=== PATIENT | male | born 1930 | race Caucasian/White ===

== ENCOUNTER → 2017-02-27 | Outpatient (CLI) | payer OTHER ==
[~2017-02-27] MED LIST: ACET-24 PO; ASPI81TA28 PO; DONE1TAB26 PO; FURO-85 PO; LEVO100T7 PO; LPR25 PO; PANT40TA PO; POTA-74 PO; TRAM-453 PO; [UNRECOGNIZED DRUG - CODE] IV; [UNRECOGNIZED DRUG - CODE] IV
[2017-02-27 17:51] LABS: BASO % 0.3 %; BASO ABS # 0.02 K/uL (0-0.2); COMPLETE YES; EOS % 0.5 %; HEMATOCRIT 43.6 % (42-52); IG% 0.3 %; LYMPH % 7.6 %; MEAN CELL VOLUME 89.2 fL (80-100); MEAN CORPUSCULAR HEMOGLOBIN 29.2 pg (25-34); MEAN CORPUSCULAR HGB CONC 32.8 g/dl (32-36); MEAN PLATELET VOLUME 10.3 fL (7.4-10.4); MONO % 9.8 %; NEUT % 81.5 %; PLATELET COUNT 206 K/uL (130-400); RED BLOOD COUNT 4.89 M/uL (4.7-6.1); WHITE BLOOD COUNT 7.89 K/uL (4.8-10.8)
[2017-02-27 19:39] LABS: BLOOD UREA NITROGEN 19 mg/dl (7-18); BUN/CREATININE RATIO 15.8 (10-20); CALCIUM 8.8 mg/dl (8.5-10.1); CARBON DIOXIDE 22 mmol/L (21-32); CHLORIDE 106 mmol/L (98-107); GLUCOSE 120 mg/dl (70-99); POTASSIUM 4.4 mmol/L (3.5-5.1); SODIUM 138 mmol/L (136-145)
[2017-02-27 19:49] LABS: ALB/GLOB RATIO 0.8 (0.9-2); ALKALINE PHOSPHATASE 87 U/L (45-117); ALT/SGPT 23 U/L (12-78); AST/SGOT 15 U/L (15-37)
== END | disposition home or self-care (01) ==
LOC: C.LABSPEC 17:32
PROVIDERS: ATTEND Internal Medicine
DX: J20.9 Acute bronchitis, unspecified (principal); R53.83 Other fatigue

== ENCOUNTER → 2017-03-31 | Outpatient (CLI) | payer OTHER ==
--- NOTE | 2017-03-31 18:20 | DIAGNOSTIC IMAGING REPORT ---
RIGHT KNEE 1 OR 2 VIEWS ROUTINE CLINICAL HISTORY: RIGHT KNEE PAIN Right pain COMPARISON: None. DISCUSSION: Rather significant degenerative narrowing of all major joint compartments. Chondrocalcinosis. Medial lateral osteophytic change. Small joint effusion. Multiple small synovial calcifications. No evidence for fracture or dislocation. IMPRESSION: Significant degenerative change all major joint compartments. Chondrocalcinosis. Small joint effusion with multiple synovial calcifications The above report was generated using voice recognition software. It may contain grammatical, syntax or spelling errors. Electronically signed by: Demetrius Craft M.D. 03/31/2017 6:19 PM Dictated Date/Time: 03/31/2017 6:18 PM
== END | disposition home or self-care (01) ==
LOC: C.RAD 17:14
PROVIDERS: ATTEND Internal Medicine
DX: M25.561 Pain in right knee (principal); M11.261 Other chondrocalcinosis, right knee; M25.461 Effusion, right knee; M25.861 Other specified joint disorders, right knee

== ENCOUNTER 2017-04-06 12:54 | Emergency (ER) | payer OTHER ==
[~2017-04-06] VITALS: Ht 170.2 cm; Wt 77.0 kg
[~2017-04-06 12:54] MED LIST changes: -ACET-24 PO; -TRAM-453 PO; -[UNRECOGNIZED DRUG - CODE] IV; -[UNRECOGNIZED DRUG - CODE] IV
[2017-04-06 13:03] VITALS: TEMP 36.5; Ht 170.2 cm; Wt 77.0 kg
--- NOTE | 2017-04-06 14:01 | DIAGNOSTIC IMAGING REPORT ---
RIGHT KNEE 3 VIEWS CLINICAL HISTORY: Right knee pain COMPARISON: None. DISCUSSION: No acute fractures are visualized. There is chondrocalcinosis. There are degenerative changes with medial joint compartment narrowing. There is a suprapatellar joint effusion. There are calcifications projected over the joint fluid. There is a 15 mm 8 mm calcification projected over the lateral metadiaphyseal junction of the distal femur. Is unclear whether these calcifications are internal or extra-articular. IMPRESSION: 1. Chondrocalcinosis and degenerative change. No acute fractures. Joint effusion. Possible loose bodies. Electronically signed by: Igor Sharma M.D. 04/06/2017 2:00 PM Dictated Date/Time: 04/06/2017 1:58 PM
[2017-04-06] MEDS ORDERED: TRAMADOL HCL 50 MG TAB PO STA (15:22)
--- NOTE | 2017-04-06 16:34 | DIAGNOSTIC IMAGING REPORT ---
ULTRASOUND RIGHT VENOUS DOPP LOWER EXT UNILAT CLINICAL HISTORY: Right leg pain COMPARISON STUDY: No previous studies for comparison. FINDINGS: No thrombus is visualized in the common femoral, superficial femoral, or popliteal veins. One of the posterior tibial veins is thrombosed. There is normal color-flow within the anterior tibial and peroneal veins. IMPRESSION: 1. Calf DVT involving one of the posterior tibial veins 2. No evidence of [id number] thrombus Electronically signed by: Igor Sharma M.D. 04/06/2017 4:32 PM Dictated Date/Time: 04/06/2017 4:31 PM
--- NOTE | 2017-04-06 16:55 | EMERGENCY ROOM VISIT NOTE ---
ED Visit Note First contact with patient: 13:19 Staff note: I have reviewed the Patients chart and have discussed this case with my PA. I generally agree with the ED note and findings.
[2017-04-06] MEDS ORDERED: TRAM-453 PO (17:05)
--- NOTE | 2017-04-06 17:05 | EMERGENCY ROOM VISIT NOTE ---
History First contact with patient: 13:19 Chief Complaint: KNEEPAIN Stated Complaint: KNEE PAIN History of Present Illness The patient is a 87 year old male who presents to the Emergency Room with complaints of right knee pain which began last week. The patient states that he saw his primary care provider, Dr. Shay regarding the knee pain and was referred to orthopedics. He saw Dr. Lion, who injected the knee with a steroid 3 days ago with no relief. He denies any injury to the knee. He denies any history of knee problems. He rates the discomfort a 4/10 and states it is difficult to walk on the knee. The pain is concentrated on the inside of the knee. He has a history of blood clots in his legs and has an IVC filter. He did take one of his 's tramadol this morning which offered him some relief of the pain. He denies any redness, warmth or fevers. Denies chest pain or shortness of breath. Review of Systems A complete 10 point review of systems was reviewed with the patient with pertinent positives and negatives as per history of present illness. All else were negative. Past Medical/Surgical History Medical Problems: (1) Aortic Valve Disorder (2) Cellulitis Of Face (3) DVT (deep venous thrombosis) (4) Heart Valve Replac Nec (5) Hypertension Nos (6) Myalgia And Myositis Nos Social History Smoking Status: Never Smoker Marital Status: Housing Status: lives with family Occupation Status: retired Current/Historical Medications Scheduled Aspirin (Aspirin Ec), 81 MG PO DAILY Donepezil Hydrochloride (Donepezil Hcl), 10 MG PO QAM Furosemide (Lasix), 20 MG PO 3XWK Levothyroxine Sodium (Levothyroxine Sodium), 100 MCG PO QAM Metoprolol Tartrate (Lopressor), 12.5 MG PO BID Pantoprazole (Protonix), 40 MG PO QAM Potassium Chloride (Potassium Chloride Er), 10 MEQ PO 3XWK Tramadol Hcl (Ultram), 50-100 MG PO Q4H Physical Exam Vital Signs Date Time Temp Pulse Resp B/P (MAP) Pulse Ox O2 Delivery O2 Flow Rate FiO2 04/06/17 17:16 68 20 131/81 99 04/06/17 15:16 78 20 145/88 99 Room Air 04/06/17 13:03 36.5 90 20 145/82 94 Room Air Physical Exam VITALS: Vitals are noted on the nurse's note and reviewed by myself. Vital signs stable. GENERAL: This is an 87-year-old male, in no acute distress, nondiaphoretic, well -developed well-nourished. HEART: Regular rate and rhythm without murmurs gallops or rubs. LUNGS: Clear to auscultation bilaterally without wheezes, rales or rhonchi. MUSCULOSKELETAL: There is tenderness to palpation over the medial aspect of the right knee. There is no erythema or warmth of the knee. There is no ecchymosis. Full range of motion of the knee. NEURO: Patient was alert and oriented to person place and time. Normal sensation to light and sharp touch. Medical Decision & Procedures ER Provider Diagnostic Interpretation: RIGHT KNEE 3 VIEWS DISCUSSION: No acute fractures are visualized. There is chondrocalcinosis. There are degenerative changes with medial joint compartment narrowing. There is a suprapatellar joint effusion. There are calcifications projected over the joint fluid. There is a 15 mm 8 mm calcification projected over the lateral metadiaphyseal junction of the distal femur. Is unclear whether these calcifications are internal or extra-articular. IMPRESSION: 1. Chondrocalcinosis and degenerative change. No acute fractures. Joint effusion. Possible loose bodies. ULTRASOUND RIGHT VENOUS DOPP LOWER EXT UNILAT FINDINGS: No thrombus is visualized in the common femoral, superficial femoral, or popliteal veins. One of the posterior tibial veins is thrombosed. There is normal color-flow within the anterior tibial and peroneal veins. IMPRESSION: 1. Calf DVT involving one of the posterior tibial veins 2. No evidence of [id number] thrombus Medications Administered Medications (Trade) Dose Ordered Sig/Ani Route Start Time Stop Time Status Last Admin Dose Admin Tramadol HCl (Ultram Tab) 50 mg NOW STAT PO 04/06/17 15:22 04/06/17 15:23 DC 04/06/17 15:34 50 MG Tramadol HCl (Ultram Home Pack) 1 homepack UD ONCE PO 04/06/17 17:15 04/06/17 17:16 DC 04/06/17 17:16 1 HOMEPACK ED Course The patient was evaluated as above. X-ray of the right knee was obtained and read by radiology. Findings were discussed with the patient. He requested something for pain and was given 1 tablet tramadol. Ultrasound was performed and read by radiology and did show a right calf DVT. The case was discussed with Dr. Shay, the patient's primary care provider. He agrees that the patient does not require anticoagulation at this time. Findings were discussed with the patient. He will be discharged home. He was given a home pack of Tramadol. Discharge instructions were reviewed with the patient. The patient verbalized understanding of my assessment and treatment plan and was discharged home in good condition. Medical Decision Differential diagnosis includes septic joint, gout, arthritis, DVT, superficial thrombosis, among others. The patient is an 87-year-old male who presents today complaining of right knee pain. There is no evidence of a septic joint on exam. Knee x-ray was performed and did show evidence of arthritis and possible loose bodies. Ultrasound of the right leg was performed due to history of DVT. The patient does have a DVT in the posterior tibial vein. I am unsure if this is truly the cause of the patient's presenting complaint today. The patient has a history of significant upper GI bleed and I do not feel that anticoagulation will be indicated given the location of the patient's clot and the fact that he already has an IVC filter. The case was discussed with the patient's primary care provider who is in agreement with this. Patient was instructed to apply heat to the calf. He will follow-up with orthopedics and his primary care provider. He will return here as needed. He was given a home pack and prescription of tramadol for his pain. Based on the patient's presentation and work up, I feel the patient is stable for outpatient treatment. The patient was educated to return to the emergency department for any worsening of their current condition or new/concerning symptoms. He will follow up with his PCP and orthopedics. The patient was independently evaluated by Dr. Mondragon, ED attending physician, who agreed with my assessment and treatment plan. Medication Reconcilliation Current Medication List: was personally reviewed by me Blood Pressure Screening Patient's blood pressure: Elevated blood pressure Blood pressure disposition: Elevated BP felt to be situational Impression Primary Impression: Right knee pain Additional Impression: DVT (deep venous thrombosis) Departure Information Dispostion Home / Self-Care Condition GOOD Prescriptions Tramadol Hcl (ULTRAM) 50 Mg Tab 50-100 MG PO Q4H for Pain, #20 TAB For Initial Treatment Prov: Ellen Wilson PA-C 04/06/17 Referrals Goldy Vasquez M.D. (PCP) Patient Instructions My [facility] [employer] Additional Instructions Tramadol, one tablet every 4-6 hours as needed for pain. Follow-up with Dr. Lion regarding your knee pain. Follow-up with Dr. Watson Cooper this week in the office. Return here for any worsening or new/concerning symptoms. Problem Qualifiers Primary Impression: Right knee pain Chronicity: acute Qualified Codes: M25.561 - Pain in right knee Additional Impression: DVT (deep venous thrombosis) DVT location: lower extremity Affected thrombotic vein of extremity: tibial Chronicity: acute Laterality: right Qualified Codes: I82.441 - Acute embolism and thrombosis of right tibial vein
[2017-04-06] MEDS ORDERED: TRAMADOL HCL 50 MG HOME PACK ONE (17:06)
[2017-04-06] MEDS ORDERED: TRAMADOL HCL 50 MG HOME PACK PO ONE (17:15)
[2017-04-06 17:16] VITALS: BP 131/81; PULSE 68; O2SAT 99
[2017-04-17] MEDS ORDERED: DONE1TAB26 PO (07:38)
[2017-04-17] MEDS ORDERED: [UNRECOGNIZED DRUG - CODE] IV (07:38)
[2017-04-17] MEDS ORDERED: ACET-24 PO (07:38)
[2017-04-17] MEDS ORDERED: [UNRECOGNIZED DRUG - CODE] IV (07:38)
[2017-04-17] MEDS ORDERED: ASPI81TA28 PO (07:38)
[2017-04-17] MEDS ORDERED: LPR25 PO (07:38)
== END 2017-04-06 17:17 | disposition home or self-care (01) ==
LOC: C.EDB 12:55 → C.EDD 17:17
DX: M25.561 Pain in right knee (principal); I82.441 Acute embolism and thrombosis of right tibial vein; M11.261 Other chondrocalcinosis, right knee; M17.11 Unilateral primary osteoarthritis, right knee; Z86.718 Personal history of other venous thrombosis and embolism; Z95.828 Presence of other vascular implants and grafts; I35.8 Other nonrheumatic aortic valve disorders; I10 Essential (primary) hypertension; Z95.2 Presence of prosthetic heart valve; Z79.82 Long term (current) use of aspirin

== ENCOUNTER → 2017-04-07 | Outpatient (CLI) | payer OTHER ==
[~2017-04-07] MED LIST changes: +ACET-24 PO; +TRAM-453 PO; +[UNRECOGNIZED DRUG - CODE] IV; +[UNRECOGNIZED DRUG - CODE] IV
[2017-04-07 15:52] LABS: SYNOVIAL FLUID APPEARANCE TURBID; SYNOVIAL FLUID COLOR RED; SYNOVIAL FLUID MONONUC RELAT 18.4 %; SYNOVIAL FLUID POLYNUC RELAT 81.6 %
== END | disposition home or self-care (01) ==
LOC: C.LABSPEC 14:00
PROVIDERS: ATTEND Internal Medicine
DX: M25.561 Pain in right knee (principal); M19.90 Unspecified osteoarthritis, unspecified site

== ENCOUNTER 2017-04-09 11:43 | Inpatient (IN) | payer OTHER ==
[~2017-04-09] VITALS: Ht 167.6 cm; Wt 69.1 kg
[~2017-04-09 11:43] MED LIST changes: -ACET-24 PO; -[UNRECOGNIZED DRUG - CODE] IV; -[UNRECOGNIZED DRUG - CODE] IV
[2017-04-09] MEDS ORDERED: ACETAMINOPHEN 500 MG TAB PO PRN (12:00)
[2017-04-09 12:02] VITALS: BP 115/67; PULSE 75; TEMP 36.7; O2SAT 92; Ht 167.6 cm; Wt 69.1 kg
[2017-04-09] MEDS ORDERED: VANCOMYCIN CONSULT ACTIVE PRN (12:15)
[2017-04-09] MEDS ORDERED: PATIENT'S HEIGHT AND/OR WEIGHT NEEDED SCH (12:15)
[2017-04-09] MEDS ORDERED: VANCOMYCIN INJ 1,900 MG in SODIUM CHLORIDE 0.9% 500ML 500 ML IV ONE (12:30)
[2017-04-09 12:49] LABS: BASO % 0.1 %; BASO ABS # 0.01 K/uL (0-0.2); HEMATOCRIT 40.5 % (42-52); IG% 0.8 %; LYMPH % 14.1 %; LYMPH ABS # 1.29 K/uL (1.2-3.4); MEAN CELL VOLUME 88.6 fL (80-100); MEAN CORPUSCULAR HEMOGLOBIN 30.2 pg (25-34); MEAN PLATELET VOLUME 9.7 fL (7.4-10.4); MONO % 10.4 %; NEUT % 73.6 %; PLATELET COUNT 344 K/uL (130-400); RED BLOOD COUNT 4.57 M/uL (4.7-6.1); WHITE BLOOD COUNT 9.12 K/uL (4.8-10.8)
[2017-04-09 12:53] LABS: COMPLETE YES; MEAN CORPUSCULAR HGB CONC 34.1 g/dl (32-36)
[2017-04-09 13:03] LABS: INR 1.1 (0.9-1.1); PARTIAL THROMBOPLASTIN RATIO 1.3; PROTHROMBIN TIME (PATIENT) 11.5 SECONDS (9.0-12.0)
[2017-04-09 13:08] LABS: BUN/CREATININE RATIO 16.9 (10-20); C-REACTIVE PROTEIN 14.7 mg/dl (0-0.29); CALCIUM 9.7 mg/dl (8.5-10.1); CREATININE 0.95 mg/dl (0.60-1.40); POTASSIUM 3.9 mmol/L (3.5-5.1)
[2017-04-09 13:16] LABS: ALB/GLOB RATIO 0.6 (0.9-2)
[2017-04-09] MEDS: HEPARIN SOD 5000 UNIT/0.5 ML CARP SQ SCH ×2 (13:50→21:21)
--- NOTE | 2017-04-09 14:28 | Pharmacy Progress Note ---
Pharmacy Antibiotic Consult Date of Service: Apr 09, 2017. Pharmacy Dosing Scope Pharmacy is consulted to initiate vancomycin IV dosing therapy, order appropriate labs and adjust drug dose/frequency. Subjective The patient is a 87 year old male admitted on Apr 09, 2017 at 11:43. Objective Height (Feet): 5 Height (Inches): 6.00 Weight (Kilograms): 69.100 Lab Results (24hrs): Test 04/09/17 12:19 White Blood Count 9.12 K/uL (4.8-10.8) Red Blood Count 4.57 M/uL (4.7-6.1) Hemoglobin 13.8 g/dL (14.0-18.0) Hematocrit 40.5 % (42-52) Mean Corpuscular Volume 88.6 fL (80-100) Mean Corpuscular Hemoglobin 30.2 pg (25-34) Mean Corpuscular Hemoglobin Concent 34.1 g/dl (32-36) Platelet Count 344 K/uL (130-400) Mean Platelet Volume 9.7 fL (7.4-10.4) Neutrophils (%) (Auto) 73.6 % Lymphocytes (%) (Auto) 14.1 % Monocytes (%) (Auto) 10.4 % Eosinophils (%) (Auto) 1.0 % Basophils (%) (Auto) 0.1 % Neutrophils # (Auto) 6.71 K/uL (1.4-6.5) Lymphocytes # (Auto) 1.29 K/uL (1.2-3.4) Monocytes # (Auto) 0.95 K/uL (0.11-0.59) Eosinophils # (Auto) 0.09 K/uL (0-0.5) Basophils # (Auto) 0.01 K/uL (0-0.2) RDW Standard Deviation 44.3 fL (36.4-46.3) RDW Coefficient of Variation 13.6 % (11.5-14.5) Immature Granulocyte % (Auto) 0.8 % Immature Granulocyte # (Auto) 0.07 K/uL (0.00-0.02) Erythrocyte Sedimentation Rate 50 mm/hr (0-14) Prothrombin Time 11.5 SECONDS (9.0-12.0) Prothromb Time International Ratio 1.1 (0.9-1.1) Activated Partial Thromboplast Time 32.9 SECONDS (21.0-31.0) Partial Thromboplastin Ratio 1.3 Sodium Level 136 mmol/L (136-145) Potassium Level 3.9 mmol/L (3.5-5.1) Chloride Level 103 mmol/L (98-107) Carbon Dioxide Level 24 mmol/L (21-32) Anion Gap 9.0 mmol/L (3-11) Blood Urea Nitrogen 16 mg/dl (7-18) Creatinine 0.95 mg/dl (0.60-1.40) Est Creatinine Clear Calc Drug Dose 50.3 ml/min Estimated GFR () 83.7 Estimated GFR (Non- 72.2 BUN/Creatinine Ratio 16.9 (10-20) Random Glucose 103 mg/dl (70-99) Calcium Level 9.7 mg/dl (8.5-10.1) Total Bilirubin 0.9 mg/dl (0.2-1) Aspartate Amino Transf (AST/SGOT) 13 U/L (15-37) Alanine Aminotransferase (ALT/SGPT) 21 U/L (12-78) Alkaline Phosphatase 78 U/L (45-117) C-Reactive Protein 14.70 mg/dl (0-0.29) Total Protein 7.3 gm/dl (6.4-8.2) Albumin 2.8 gm/dl (3.4-5.0) Globulin 4.5 gm/dl (2.5-4.0) Albumin/Globulin Ratio 0.6 (0.9-2) Micro Results: Item Value Date Time Gram Stain - Final Resulted 04/07/17 1400 Joint Fluid/Space (Synovial) Knee Right Item Value Date Time Blood Culture Received 04/09/17 1230 Blood Pending Blood Culture Received 04/09/17 1219 Blood Pending Assessment & Plan Patient started on vancomycin due to positive joint/synovial fluid from 04/07 growing Gm+cocci. BC x 2 are pending. Vancomycin: * Pt received LD of vancomycin 1900 mg (~25 mg/kg) x 1 based upon wt from previous admission of 77 kg (pt reported) * Will start MD of vancomycin 1000 mg (~15 mg/kg) iv q 18 hrs to achieve an estimated trough 15-20 mcg/ml (goal for joint infection) * Estimated kinetics: t1/2~15 hrs, ke~0.04 hr-1, CrCl ~50ml/min * Will plan to obtain a trough prior to the 1400 dose on 04/12 to ensure therapeutic Pharmacy will continue to follow and will adjust dose/frequency as necessary. Thank you
[2017-04-09 15:25] VITALS: BP 125/66; PULSE 71; TEMP 37; O2SAT 93
--- NOTE | 2017-04-09 15:38 | History and Physical ---
History & Physical Date of Service Apr 09, 2017. History & Physical CHIEF COMPLAINT: 87-year-old male admitted with septic right knee. PRESENT ILLNESS: Patient with multiple medical problems including aortic valve replacement with a prosthetic valve because of critical aortic stenosis. He also has dementia. Treated for hypothyroidism. Has osteoarthritis. He has a history of gastrointestinal bleed in 2014. At that same time he presented with a pneumomediastinum and pneumoperitoneum. He also has evidence of deep vein thrombosis of his left leg. Because of the acute bleeding he was not anticoagulated. He had a Lani filter placed. Back in 2014 he presented with mental status changes and aphasiia and left-sided deficit. These findings were transient. On 03/31/2017 his called the office stating that 4 days prior to her phone call or patient was putting his shoes on and he twisted his right knee. It was painful. He had no swelling at that time. He did take Tylenol and. Apply diurese. We did send him for an x-ray of the right knee. There was evidence of significant osteoarthritic changes 04 major components. Chondrocalcinosis was also noted. There was a small joint effusion. Since then he continued to have severe pain in his right knee. I did see him in the office. He also was seen by Dr. Benedicto Lion last . He had a steroid injection in his knee. He continued to have severe pain. He was unable to ambulate. I saw him in the office on 04/07/2017. He had evidence of significant effusion of the right knee. An arthrocentesis was done. I drained 30 cc of fluid which was slightly bloody. The fluid was sent for multiple studies including cell count, culture, and crystal study. The WBC count isn't his synovial fluid was 21,111. There was evidence of crystals consistent with pseudogout. The culture was reported gram- positive cocci. I spoke with Dr. Lion today. I made arrangements for the patient to be admitted for further treatment. PAST MEDICAL HISTORY: * gastrointestinal bleed on 10/30/2014. The source of bleeding was never determined. At that time he presented with pneumomediastinum and pneumopericardium. Endoscopy was contraindication it. He was treated conservatively. 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 * Critical aortic stenosis requiring valve replacement. He had a bioprosthetic valve done at [facility] on 08/05/2011 * TURP in 1980 * Congenital absence of the left kidney discovered at that time he had his retrograde pyelogram in 1990 * History of urinary retention in 1992 * Known hiatal hernia and gastroesophageal reflux. * History of colonic polyps in 1992 * Left inguinal hernia repair in 1988 * Cholecystectomy in 1983 * Appendectomy and tonsillectomy in childhood * Arthroscopic surgery of the left knee for torn meniscus in 1996 * Meniscus tear of the right knee in 2004 required arthroscopic procedure * Rotator cuff dysfunction in 1992 * Bilateral inguinal hernia repair in 2003 * Memory deficit first diagnosed in 2005 * In 2006 he had a nonhealing lesion on the left side of face down. 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 He had a partial gross ectomy. This was done on 09/01/2007. He has no residual deficit. * Hypothyroidism. Treated since 2005. SOCIAL HISTORY: He is . This is his second marriage. He has 3 children from his first marriage. He stopped smoking in the . He smoked a pipe prior to that. Denied any alcohol. No excessive coffee tea or soft drinks. 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 FAMILY HISTORY: His family history is unknown. He is adopted. ALLERGIES: None CURRENT MEDICATIONS: * metoprolol tartrate 12.5 mg twice a day * Aricept 5 mg daily he has a 10 mg tablets that he breaks in half * Lasix 20 mg 3 times a week on Friday and Friday * Potassium chloride 10 mEq on Friday and Friday * Levothyroxine 100 mcg daily * Protonic 40 mg daily REVIEW OF SYSTEMS: He has been feeling weak and very tired. Having a lot of pain in his knee. He denied any headache or dizziness or lightheadedness. He does have problem with his balance and equilibrium. No chest pain no shortness of breath. No abdominal pain no nausea no vomiting. No problem with his bowel movements. No problem urinating. No pain in his back. He is having severe pain in his right knee. PHYSICAL EXAMINATION: General : Well developed. Well nourished. complaining of severe pain. Having a problem ambulating. His recorded weight is 69.1 kg. Height 167.6 cm. BMI 24.6. Vital Signs : Blood [id number], pulse 75, respiration 18, temperature 36.7, oxygen saturation 92% on room air. Skin : Warm and dry. No rash. HEENT :He was glasses. Has upper dentures. Has hearing aids. Neck : Supple. No adenopathy. No thyromegaly. No JVD. Normal carotid pulses. Bilateral carotid bruits. Chest : Normal.Scar from prior surgery Heart : Regular heart sounds. 2/6 systolic murmur. No rub or gallop. PMI is not displaced. Lungs : Clear. Normal breath sounds. Axilla : No adenopathy. Breasts : Normal. Abdomen : Soft nontender without any organomegaly or masses. Active bowel sounds. Back : No spinal or CVA tenderness. Extremities: He does have swelling in his right lower leg and ankle. No clubbing no cyanosis. Acute arthritis of the right knee. There is evidence of recurrent effusion. Good pulses. Neurological examination : he does have dementia mostly demonstrated by his memory deficit. No evidence of any lateralized deficit. ADMISSION LABORATORY TESTS: WBC count 9120, hemoglobin 13.8, hematocrit 40.5, platelet count 344,002. Sedimentation rate 58. C-reactive protein 14.7. Sodium 136, potassium 3.9, CO2 103, CO2 24, BUN 16, creatinine 0.95, glucose 103 , calcium 9.7, total bilirubin 0.9, AST 13, ALT 21, alkaline phosphatase 78, total protein 7.3, albumin 2.8. Prothrombin time 11.5, INR 1.1, PTT 32.9. The results of the arthrocentesis done on Friday04/07/2017 are as reported above. He does have evidence of septic joint. ASSESSMENT: * septic arthritis right knee * Severe osteoarthritis * Functional decline * Prosthetic aortic valve. He has a bioprosthesis * Hypothyroidism * Dementia * Solitary kidney. Congenital absence of the left kidney. * Gastroesophageal reflux * Bello's esophagus PLAN: Patient was admitted to medical surgical bed. Resuscitation level I. All his laboratory tests were ordered. Blood cultures were done. Will continue his oral medications. He was started on IV vancomycin. Pharmacy consultation to monitor the vancomycin dosage. As noted I spoke with Dr. Lion. Requested a consultation. He would see the patient. He will decide on the need for surgical intervention. We wait for the final culture results from his arthrocentesis which was done on 04/09/2017 and decide on the length of treatment and antibiotic that we need to continue. I spoke with his family about his condition and the need for admission and further treatment.
[2017-04-09] MEDS: HYDROCODONE/ACETAMOPHEN 5/325MG TAB PO PRN (17:21)
[2017-04-09] MEDS ORDERED: LIDOCAINE HCL 1% 20 ML VIAL ONE (17:32)
[2017-04-09 20:16] LABS: SYNOVIAL FLUID APPEARANCE BLOODY; SYNOVIAL FLUID COLOR RED; SYNOVIAL FLUID MONONUC RELAT 13.2 %; SYNOVIAL FLUID POLYNUC RELAT 86.8 %
[2017-04-09] MEDS: METOPROLOL TARTRATE 25 MG TAB PO SCH (21:25)
--- NOTE | 2017-04-09 21:47 | ORTHOPEDIC CONSULTATION ---
DATE OF CONSULTATION: 04/09/2017 CHIEF COMPLAINT: Right knee pain and effusion. HISTORY OF PRESENT ILLNESS: Albin is an 87-year-old male who began having right knee pain when he twisted his knee while putting on a boot on 03/27/2017. Four days later he called the office of Dr. Shay and had x-rays done of his knee. The x-ray showed chondrocalcinosis and osteoarthritis of the knee. His pain continued and he presented to my office a week ago and I gave him an intraarticular injection in his knee. Unfortunately, that did not help much with his knee pain. He continued to have severe pain in his knee and went to Dr. Shay's office 2 days ago. He had an arthrocentesis, which appeared to be a pseudogout; however a Gram-positive cocci grew. There was concerns with possible septic arthritis, so he was a direct admit over to the hospital. Orthopedics was consulted to evaluate and treat. PAST MEDICAL HISTORY: Significant for GI bleed, chronic aortic stenosis, congenital absence of the left kidney, history of colon polyps, inguinal hernia repair, cholecystectomy, appendectomy, left knee arthroscopy in 1996, right knee arthroscopy in 2004, rotator cuff dysfunction 1992, bilateral inguinal hernia repair in 2003, squamous cell carcinoma, hypothyroidism. ALLERGIES: None. MEDICATIONS: Include metoprolol, Aricept, Lasix, potassium, Synthroid and Protonix. FAMILY HISTORY: Noncontributory. SOCIAL HISTORY: He has 3 children from his first marriage. 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 REVIEW OF SYSTEMS: He complains of right knee pain. All other pertinent review of systems is negative. ALLERGIES: None. PHYSICAL EXAMINATION: RIGHT KNEE: He is lying in bed with his knee flexed at 15 degrees. He has a lot of pain trying to straighten the knee. Most of his pain is really located all along the medial joint line and over the distal medial femoral condyle. There is a 2+ effusion on exam today. There was no redness or increased warmth. He does not have much pain laterally on the knee. IMAGING DATA: X-rays of the knee from previous visit do show advanced grade 4 osteoarthritis with significant chondrocalcinosis of the meniscus. Lab values from the arthrocentesis show a white count of 21,000 and evidence of crystals consistent with pseudogout. There is also a Gram-positives cocci, likely strep that has grown. IMPRESSION: 1. Right knee pain and effusion, probable pseudogout. 2. Continue to rule out possible septic arthritis. PLAN: Given his history, his x-rays and the white count of 21,000 as well as the crystals growing out a pseudogout, everything about this appears to be a pseudogout of the knee. However, the cultures did grow out a strep bacteria, which is not common for contaminant. He was started on vancomycin. I did a repeat arthrocentesis of his right knee to see if there will be any increase in the white count that could persuade me to do an arthroscopic I&D of the knee. At this time, I am hesitant to take him to surgery. We will see what the repeat synovial aspirate grows and will keep him on the vancomycin for now. We are also awaiting blood cultures. He is on hydrocodone for pain and will continue to follow him closely.
[2017-04-09 22:56] VITALS: BP 148/70; PULSE 75; TEMP 36.8; O2SAT 91
[2017-04-10] MEDS: HYDROCODONE/ACETAMOPHEN 5/325MG TAB PO PRN ×3 (03:56→16:24)
[2017-04-10] MEDS: LEVOTHYROXINE 100 MCG TAB PO SCH (05:39)
[2017-04-10 07:06] LABS: BASO % 0.3 %; BASO ABS # 0.02 K/uL (0-0.2); COMPLETE YES; EOS % 0.8 %; HEMATOCRIT 38.2 % (42-52); IG% 0.5 %; LYMPH % 17.1 %; LYMPH ABS # 1.27 K/uL (1.2-3.4); MEAN CELL VOLUME 88.4 fL (80-100); MEAN CORPUSCULAR HEMOGLOBIN 29.6 pg (25-34); MEAN CORPUSCULAR HGB CONC 33.5 g/dl (32-36); MONO % 11.3 %; PLATELET COUNT 344 K/uL (130-400); RED BLOOD COUNT 4.32 M/uL (4.7-6.1); WHITE BLOOD COUNT 7.43 K/uL (4.8-10.8)
[2017-04-10 07:08] LABS: CREATININE 0.87 mg/dl (0.60-1.40)
[2017-04-10 07:24] LABS: BUN/CREATININE RATIO 13.4 (10-20); CALCIUM 9.3 mg/dl (8.5-10.1); CREATININE 0.86 mg/dl (0.60-1.40); POTASSIUM 3.9 mmol/L (3.5-5.1)
[2017-04-10 07:51] VITALS: BP 134/77; PULSE 71; TEMP 36.7; O2SAT 93
--- NOTE | 2017-04-10 07:58 | DIAGNOSTIC IMAGING REPORT ---
CHEST 2 VIEWS ROUTINE CLINICAL HISTORY: 87 years-old Male presenting with valvular heart disease. bacteremia. Pre-op. TECHNIQUE: PA and lateral views of the chest were obtained. COMPARISON: 07/21/2016. FINDINGS: Median sternotomy wires, prosthetic aortic valve and epicardial pacing wires noted. Cardiomediastinal silhouette normal. Persistent elevation of the left hemidiaphragm. Lungs and pleural spaces clear. Osseous structures normal. Cholecystectomy clips and IVC filter noted. Mild gaseous distention of colon. IMPRESSION: 1. No acute cardiopulmonary disease. Electronically signed by: Osiel Cuello M.D. 04/10/2017 7:56 AM Dictated Date/Time: 04/10/2017 7:54 AM
[2017-04-10 08:28] VITALS: O2SAT 93
[2017-04-10] MEDS: PANTOprazole SOD 40 MG TAB PO SCH (09:01)
[2017-04-10] MEDS: DONEPEZIL HCL 5 MG TAB PO SCH (09:01)
[2017-04-10] MEDS: ASPIRIN 81 MG ECTAB PO SCH (09:01)
[2017-04-10] MEDS: VANCOMYCIN INJ 1,000 MG in SODIUM CHLORIDE 0.9% 250ML 250 ML IV SCH (09:01)
[2017-04-10] MEDS: METOPROLOL TARTRATE 25 MG TAB PO SCH ×2 (09:02→20:53)
[2017-04-10] MEDS: HEPARIN SOD 5000 UNIT/0.5 ML CARP SQ SCH ×2 (09:03→20:50)
[2017-04-10 11:44] VITALS: BP 120/68; PULSE 60; TEMP 36.7; O2SAT 91
--- NOTE | 2017-04-10 11:52 | Progress Note ---
Progress Note Date of Service Apr 10, 2017. Progress Note 87-year-old male admitted with the following problems: * septic right knee. Culture which was done on 04/07/2017 is growing gram- positive cocci. The final identification is pending * Severe osteoarthritis of the right knee * Chondrocalcinosis * Prosthetic aortic valve with bioprosthesis * Dementia with memory deficit * Generalized weakness * Congenital absence of the left kidney * Gastroesophageal reflux * Bello's esophagus * History of squamous cell carcinoma of the tongue. Status post partial glossectomy * history of DVT in 2014. He had a [place] filter placed. Anticoagulation was contraindicated at that time patient was admitted. Cultures were done. He was started on IV vancomycin pending the final identification of the bacteria. He remains afebrile. Early this morning the two cultures drawn on admission are reported to be growing gram -positive cocci. Patient was seen in orthopedic surgery consultation by Dr. Benedicto Lion. Repeat arthrocentesis was done last night. White cell count was 17,574, RBCs 35, 000. On the Gram stain multiple WBCs were seen but no organisms. Culture is pending. Overall he seems to be doing well. He still experiences pain in his right knee. He does have swelling in the right knee and right lower leg. He has been without any fever or any chills. No headache. No chest pain no shortness of breath. No abdominal pain. No nausea or vomiting. EXAMINATION: General : Well developed. Well nourished. No distress. Vital Signs : Blood [id number], pulse 71, respiration 22, temperature 36.7, oxygen saturation 93% on room air. Skin : Warm and dry. No rash. HEENT :No mucosal abnormalities. Neck : Supple. No adenopathy. No thyromegaly. No JVD. Normal carotid pulses. Bilateral carotid bruits. Heart : Regular heart sounds. 2/6 systolic murmur. No rub or gallop. PMI is not displaced. Lungs : Clear. Normal breath sounds. Abdomen : Soft nontender without any organomegaly or masses. Back : No spinal or CVA tenderness. Extremities: He does have swelling of the right leg. No clubbing no cyanosis. Acute arthritis of the right knee. Seems to be less inflamed. LABORATORY TESTS: WBC count 7430, hemoglobin 12.8, hematocrit 38.2, platelet count 344,000. Sodium 138, potassium 3.9, chloride 108, CO2 24, BUN 12, creatinine 0.86, glucose 106, calcium 9.3. 2 blood cultures are positive for gram-positive cocci. Final report is pending. The culture of the synovial fluid collected on 04/07/2017 is growing gram- positive cocci but the final report is still pending Electrocardiogram showed no new changes. No acute changes. Chest x-ray showed no evidence of any disease. ASSESSMENT: * septic right knee * Chondrocalcinosis * Gram-positive bacteremia * Prosthetic aortic valve with bioprosthesis * Osteoarthritis * Dementia PLAN: * continue IV vancomycin. The dose is being adjusted by pharmacy. * Continue his other medications * Echocardiogram was ordered * Cardiology consultation was requested. I spoke with Dr. Parmjit Harkins this morning. Need to decide if the patient will need a TRINI * Dr. Lion will decide on the need for surgical intervention on his right knee.
--- NOTE | 2017-04-10 15:07 | PROGRESS NOTE ---
DATE: 04/10/2017 DATE: 04/10/2017. CHIEF COMPLAINT: Right knee pain and effusion. PROGRESS: Albin was seen and examined at bedside today. Overall, he says his knee feels about the same. He has not been up and ambulating. Most of his pain is located on the medial aspect of the knee. The blood cultures did grow back a gram positive cocci and he was seen by the internet developer for his mitral valve replacement. PHYSICAL EXAMINATION: RIGHT KNEE: He does have a 2+ effusion. He has his knee flexed at 15 degrees. He does have pain with range of motion of the knee. Almost all of his pain is located over the distal medial femoral condyle and over the medial joint line. He has little to no pain laterally. There is no erythema or redness of the joint. Aspiration of the knee done yesterday does show synovial white count of 17,000 with PMN of 86%. It also showed calcium pyrophosphate crystals diagnostic of pseudogout. Blood cultures preliminary results have grown a gram positive cocci. Both cultures have come back the same. IMPRESSION: 1. Right knee pain and effusion, possible pseudogout versus septic joint. 2. Bacteremia. PLAN: With a synovial white count of 17,000, chondrocalcinosis on the x-rays, and the pseudogout crystals found within the joint, I still feel that his knee pain and effusion may be caused from his pseudogout. However, he did grow out an enterococcus from the initial aspiration done by Dr. Shay which was done under very sterile technique. I am still leaning towards pseudogout as cause of his knee pain but I have not completely ruled out a septic joint. I did start him on Toradol 15 mg every 6 hours to see if that helps alleviate some of his knee pain. I have also been in contact with Dr. Shay personally. The cardiology consult has been done because of the bacteremia and his mitral valve. I want to see how the Toradol helps and I want to see if the repeat knee aspirate grows any organisms. We will continue to follow the blood cultures as well. I will continue to follow him closely and if I start to lean more towards a septic joint I will have a quick trigger to do an arthroscopic I&D of the knee.
[2017-04-10 15:32] VITALS: BP 116/71; PULSE 64; TEMP 36.9; O2SAT 94
[2017-04-10] MEDS: KETOROLAC TROMETHAMINE 15 MG/ML VIAL IV. SCH ×2 (16:06→21:50)
--- NOTE | 2017-04-10 17:11 | ECHOCARDIOGRAM REPORT ---
*NOTICE TO RECEIVING [employer] This information is strictly Confidential and protected under [place] law. [place] law prohibits you from making any further disclosure of this information unless further disclosure is expressly permitted by the written consent of the person to whom it pertains or is authorized by law. A general authorization for the release of medical or other information is not sufficient for this purpose. Hospital accepts no responsibility if the information is made available to any other person, INCLUDING THE PATIENT. Interpretation Summary * Name: Say NAYAK Study Date: 04/10/2017 01:35 PM BP: 134/77 mmHg * Patient Location: .[facility] MAN\[id number]\[id number]\2 HR: 69 * : 1930 (M/d/yyy) Gender: Male Height: 66 in * Age: 87 yrs Ethnicity: CA Weight: 152 lb * Ordering Physician: Goldy Vasquez * Referring Physician: Goldy Vasquez * Performed By: Kristian Magana RCS * * Reason For Study: Valvular Heart Disease * BSA: 1.8 m2 * -- Conclusions -- * The left ventricular cavity is small. * There is moderate concentric left ventricular hypertrophy. * The left ventricular wall motion is normal. * Left ventricular systolic function is normal. * Ejection Fraction = 65-70%. * There is a bioprosthetic aortic valve. * The gradient is normal for this prosthetic aortic valve. * There is moderate mitral annular calcification. * The mitral valve leaflets appear thickened, but open well. * There is trace mitral regurgitation. * There is trace tricuspid regurgitation. * A sub valvular density is present below the oartic prosthesis but not well appraised on current study. Vegetation not excluded. Procedure Details * A complete two-dimensional transthoracic echocardiogram was performed (2D, M-mode, Doppler and color flow Doppler). Left Ventricle * The left ventricular cavity is small. * There is moderate concentric left ventricular hypertrophy. * Ejection Fraction = 65-70%. * Left ventricular systolic function is normal. * The left ventricular wall motion is normal. Right Ventricle * The right ventricle is normal in size and function. Atria * The left atrial size is normal. * Right atrial size is normal. * No ASD detected; PFO is not assessed. Mitral Valve * There is moderate mitral annular calcification. * The mitral valve leaflets appear thickened, but open well. * There is no mitral valve stenosis. * There is trace mitral regurgitation. Tricuspid Valve * The tricuspid valve anatomy is normal. * There is no tricuspid stenosis. * There is trace tricuspid regurgitation. Aortic Valve * No aortic regurgitation is present. * There is a bioprosthetic aortic valve. * The gradient is normal for this prosthetic aortic valve. * A sub valvular density is present below the oartic prosthesis but not well appraised on current study. Vegetation not excluded. Pulmonic Valve * The pulmonic valve is not well visualized. Great Vessels * The aortic root is normal size. Pericardium/Pleural * There is no pericardial effusion. Great Vessels * Normal inferior vena cava diameter and respiratory variation suggests normal central venous pressure. Left Ventricular Diastolic Function * Grade I diastolic dysfunction, (abnormal relaxation pattern). MMode 2D Measurements and Calculations IVSd 1.3 cm LVIDd 4.0 cm LVIDs 2.0 cm LVPWd 1.3 cm IVS/LVPW 0.94 FS 49.2 % EDV(Teich) 69.1 ml ESV(Teich) 13.1 ml EF(Teich) 81.1 % EDV(cubed) 63.0 ml ESV(cubed) 8.2 ml EF(cubed) 86.9 % LV mass(C)d 183.1 grams LV mass(C)dI 102.9 grams/m\S\2 SV(Teich) 56.1 ml SI(Teich) 31.5 ml/m\S\2 SV(cubed) 54.7 ml SI(cubed) 30.8 ml/m\S\2 Ao root diam 3.5 cm Ao root area 9.4 cm\S\2 LVOT diam 2.0 cm LVOT area 3.0 cm\S\2 EDV(MOD-sp4) 112.3 ml ESV(MOD-sp4) 33.8 ml EF(MOD-sp4) 69.9 % EDV(MOD-sp2) 71.9 ml ESV(MOD-sp2) 27.4 ml EF(MOD-sp2) 61.8 % SV(MOD-sp4) 78.5 ml SI(MOD-sp4) 44.1 ml/m\S\2 SV(MOD-sp2) 44.5 ml SI(MOD-sp2) 25.0 ml/m\S\2 Doppler Measurements and Calculations MV E max janay 120.8 cm/sec MV A max janay 152.6 cm/sec MV E/A 0.79 MV V2 max 151.7 cm/sec MV max PG 9.2 mmHg MV V2 mean 90.1 cm/sec MV mean PG 3.8 mmHg MV V2 VTI 54.3 cm MVA(VTI) 1.5 cm\S\2 MV P1/2t max janay 142.4 cm/sec MV dec time 0.30 sec Ao V2 max 251.7 cm/sec Ao max PG 25.3 mmHg Ao max PG (full) 19.4 mmHg Ao V2 mean 175.5 cm/sec Ao mean PG 14.1 mmHg Ao mean PG (full) 10.9 mmHg Ao V2 VTI 53.0 cm ELIJAH(I,A) 1.5 cm\S\2 ELIJAH(I,D) 1.5 cm\S\2 ELIJAH(V,A) 1.5 cm\S\2 ELIJAH(V,D) 1.5 cm\S\2 LV V1 max PG 5.9 mmHg LV V1 mean PG 3.2 mmHg LV V1 max 121.9 cm/sec LV V1 mean 79.4 cm/sec LV V1 VTI 26.5 cm SV(Ao) 497.8 ml SI(Ao) 279.7 ml/m\S\2 SV(LVOT) 80.3 ml SI(LVOT) 45.1 ml/m\S\2
[2017-04-10 23:08] VITALS: BP 135/77; PULSE 71; TEMP 36.7; O2SAT 93
[2017-04-11] MEDS: VANCOMYCIN INJ 1,000 MG in SODIUM CHLORIDE 0.9% 250ML 250 ML IV SCH (02:03)
[2017-04-11] MEDS: KETOROLAC TROMETHAMINE 15 MG/ML VIAL IV. SCH ×4 (03:38→22:19)
[2017-04-11] MEDS: HYDROCODONE/ACETAMOPHEN 5/325MG TAB PO PRN (05:24)
[2017-04-11] MEDS: LEVOTHYROXINE 100 MCG TAB PO SCH (05:24)
--- NOTE | 2017-04-11 07:09 | CARDIOLOGY CONSULTATION ---
DATE OF CONSULTATION: 04/10/2017 REFERRING PHYSICIAN: Dr. Shay. INDICATIONS: Bacteremia, history of aortic valve replacement. HISTORY OF PRESENT ILLNESS: The patient is an 87-year-old male, whose past history is notable for prior aortic valve replacement in July 2011 for severe calcified aortic stenosis, receiving a 21 mm Mike-Sepulveda pericardial Magna valve. There is a history of preserved LV systolic function, mildly dilated aortic root, underlying medical issues of moderate carotid atherosclerosis, congenital solitary kidney, history of Bello's esophagus with past history of gastrointestinal bleeding in October 2014. Course is notable for presentation with pneumomediastinum and pneumoperitoneum. He had a [place] filter in place due to DVT during that admission. The patient presents now, noting generalized malaise and weakness for several weeks with recent difficulties with pain in his right knee. He notes a chronic history of arthritic complaints in the knees and back, which are limiting his activity, has noted some moderate exertional dyspnea, has felt chilled at times over the past several weeks, but notes no overt fevers or rigors. Notes no acute neurologic complaints. Notes no chest pains. Notes not tachypalpitations. Appetite has been fair. Weight has been generally stable. Notes no skin lacerations or rash. Notes no recent dental procedures or invasive procedures. He has been taking medications as prescribed. ALLERGIES: None. MEDICATIONS: Prior to hospitalization were aspirin 81 mg per day, donepezil 10 mg q.a.m., Lasix 20 mg 3 days per week, levothyroxine 100 mcg q.a.m., metoprolol 12.5 mg b.i.d., Protonix 40 mg p.o. daily, potassium chloride 10 mg 3 days per week and Ultram p.r.n. PAST SURGICAL HISTORY: Includes a history of aortic valve replacement, as described, in July 2011. Cardiac catheterization preoperatively in May 2011 demonstrated only mild coronary atherosclerosis, at worst. He carries a history of past inguinal herniorrhaphy, appendectomy, cholecystectomy, tonsillectomy and as described, an IVC filter implantation in 2014. FAMILY HISTORY: Not known. SOCIAL HISTORY: The patient is a nonsmoker, nondrinker. 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 PHYSICAL EXAMINATION: GENERAL: The patient is an age-appropriate male, currently denying any acute distress. VITAL SIGNS: Reveal a heart rate of 60, blood pressure 120/68. HEENT: Normocephalic and atraumatic. Nares without discharge. Throat was clear. NECK: Supple without thyromegaly or lymphadenopathy. There are no carotid bruits. LUNGS: Clear. CARDIOVASCULAR: Regular with a grade 1/6 systolic murmur. There is no diastolic murmur. PMI is nondisplaced. A chronic cervical chest incision is well healed. ABDOMEN: Soft, nontender. EXTREMITIES: Without cyanosis or clubbing. There is tenderness overlying the right knee as well as in the ankle. There is no skin breakdown or lesion. There are no conjunctival hemorrhages. NEUROLOGIC: The patient has mild memory deficits, but is able to answer questions. He is hard of hearing, but question and answers have been aided by family members. He moves all extremities with strength. DATA: EKG on presentation reveals no acute changes with sinus rhythm with atrial ectopy, borderline criteria for left atrial enlargement. LABORATORY STUDIES: Sodium is 138, potassium is 3.9, chloride is 108, bicarbonate is 24, BUN is 12, creatinine is 0.86, glucose is 106, albumin level is 2.8, hemoglobin is 12.8. Initial white cell count was 9.1. Cultures of the joint effusions, so far to date, are negative, although a significant white cell count is present consistent with purulent effusion. Blood cultures drawn since admission are growing gram-positive cocci in two separate cultures. Echocardiogram is pending. IMPRESSION: An 87-year-old male with prior history of aortic valve replacement for severe aortic stenosis, receiving a bioprosthesis in the aortic valve position, presents now with main complaint as being right knee pain and generalized malaise and chills. Blood cultures are growing gram-positive cocci on two sources with a knee effusion drained demonstrating purulent findings. PLAN: We will follow patient in the hospital, we will review echocardiogram as noted. If concerns are raised regarding valve deterioration or insufficiency or perivalvular abscess, we would consider proceeding with a transesophageal echocardiogram, though at increased risk, given history of past Bello's esophagus and pneumomediastinum in 2015. Ultimate, he will require long-term antibiotic therapy, given presence of a prosthetic aortic valve and bacteremia, possible knee source. We will review the echocardiogram for possible seeding source, intracardiac. No other signs of sequelae of the endocarditis are present currently. MICHEL
[2017-04-11 07:49] VITALS: BP 112/70; PULSE 62; TEMP 36.7; O2SAT 92
[2017-04-11 08:28] VITALS: O2SAT 92
[2017-04-11] MEDS: PANTOprazole SOD 40 MG TAB PO SCH (09:17)
[2017-04-11] MEDS: METOPROLOL TARTRATE 25 MG TAB PO SCH ×2 (09:18→21:07)
[2017-04-11] MEDS: ASPIRIN 81 MG ECTAB PO SCH (09:20)
[2017-04-11] MEDS: DONEPEZIL HCL 5 MG TAB PO SCH (09:20)
[2017-04-11] MEDS: HEPARIN SOD 5000 UNIT/0.5 ML CARP SQ SCH ×2 (09:29→21:04)
--- NOTE | 2017-04-11 11:55 | Medical Consult ---
Consultation Date of Consultation: Apr 11, 2017. Attending Physician: Goldy Vasquez M.D. Reason for Consultation: septic R knee, AVR, bacteremia History of Present Illness Patient is an 87-year-old male who presented to the hospital for admission regarding probable right septic arthritis of the knee. The patient has a complicated medical history including aortic valve replacement with prosthetic valve due to severe aortic stenosis and congenital absence of the left kidney. The patient states that he began to have knee pain approximately 2 weeks ago. The he was noted to have a swelling, mild warmth, and pain but no erythema of the area. He did have an aspiration completed of his right knee which showed probable pseudogout, 21,000 white blood cells, and gram-positive cocci on Gram stain. Final culture is growing pansensitive enterococcus faecalis. The patient was admitted to the hospital for further treatment. Since admission, the patient did have a chest x-ray which showed no acute cardiopulmonary disease. Blood cultures are growing enterococcus species. Repeat aspirate of the knee is growing gram-positive coxae. White blood cell count on admission was 9.12. ESR was 50. C reactive protein was 14.70. The patient did also have an echocardiogram completed which showed thickening of the mitral leaflets , and a subvalvular density below the aortic prosthetic valve. The patient has been afebrile since admission. He was placed IV vancomycin. I did discuss this patient with pharmacy, Dr. Donald, and Dr. Shay. Past Medical/Surgical History Medical Problems: (1) Facial laceration Status: Acute Medical Problems: (1) Aortic Valve Disorder (2) Cellulitis Of Face (3) DVT (deep venous thrombosis) (4) Heart Valve Replac Nec (5) Hypertension Nos (6) Myalgia And Myositis Nos (7) SEPTIC ARTHRITIS R KNEE Family History Noncontributory Social History Smoking Status: Former Smoker Marital Status: Housing Status: lives with family Occupation Status: retired Allergies Coded Allergies: No Known Allergies (Verified , 04/06/17) Home Medications Reported Home Medications Medications Dose Route/Sig Max Daily Dose Days Date Category Dose Instructions Ultram (Tramadol Hcl) 50 Mg Tab 50-100 Mg PO Q4H 04/06/17 Rx For Initial Treatment Aspirin Ec (Aspirin) 81 Mg Tab 81 Mg PO DAILY 07/21/16 Reported Potassium Chloride Er (Potassium Chloride) 10 Meq Tab 10 Meq PO 3XWK 07/21/16 Reported TAKE THIS MEDICATION EVERY CAMILO Donepezil Hcl (Donepezil Hydrochloride) 10 Mg Tab 10 Mg PO QAM 07/21/16 Reported Lasix (Furosemide) 20 Mg Tab 20 Mg PO 3XWK 01/17/16 Reported TAKE THIS MEDICATION EVERY CAMILO Protonix (Pantoprazole Sodium) 40 Mg Tab 40 Mg PO QAM 02/07/15 Reported Lopressor (Metoprolol Tartrate) 25 Mg Tab 12.5 Mg PO BID 10/16/14 Reported Levothyroxine Sodium 100 Mcg Tab 100 Mcg PO QAM 10/16/14 Reported Current Inpatient Medications Current Inpatient Medications Medications (Trade) Dose Ordered Sig/Ani Route Start Time Stop Time Status Last Admin Dose Admin Heparin Sodium (Porcine) (Heparin Sq 5000 Unit/0.5ml) 5,000 unit Q12 SQ 04/09/17 13:16 05/09/17 13:15 04/11/17 09:29 5,000 UNIT Acetaminophen (Tylenol Tab) 500 mg Q4H PRN PO 04/09/17 12:00 05/09/17 11:59 Acetaminophen/ Hydrocodone Bitart ([place] 5/325 Tab) 1 tab Q4H PRN PO 04/09/17 12:00 04/23/17 11:59 04/11/17 05:24 1 TAB Vancomycin HCl (Consult) 1 ea UD PRN N/A 04/09/17 12:15 05/09/17 12:14 Vancomycin HCl 1000 mg/Sodium Chloride 270 ml @ 125 mls/hr Q18H IV 04/10/17 08:00 04/20/17 07:59 04/11/17 02:03 125 MLS/HR Aspirin (Ecotrin Tab) 81 mg DAILY PO 04/10/17 09:00 05/10/17 08:59 04/11/17 09:20 81 MG Levothyroxine Sodium (Synthroid Tab) 100 mcg DAILYBB PO 04/10/17 06:00 05/10/17 05:59 04/11/17 05:24 100 MCG Metoprolol Tartrate (Lopressor Tab) 12.5 mg BID PO 04/09/17 21:00 05/09/17 20:59 04/11/17 09:18 12.5 MG Pantoprazole Sodium (Protonix Tab) 40 mg QAM PO 04/10/17 09:00 05/10/17 08:59 04/11/17 09:17 40 MG Donepezil HCl (Aricept Tab) 5 mg QAM PO 04/10/17 09:00 05/10/17 08:59 04/11/17 09:20 5 MG Ketorolac Tromethamine (Toradol Inj) 15 mg Q6H IV. 04/10/17 16:00 04/15/17 15:59 04/11/17 09:21 15 MG Review of Systems Constitutional: + fever, + sweats, + fatigue Eyes: No worsening of vision ENT: No hearing loss Respiratory: No cough, No shortness of breath Cardiovascular: No chest pain Abdomen: No pain, No nausea, No vomiting, No diarrhea Musculoskeletal: + joint pain (right knee x 2 weeks), + swelling (right knee) Genitourinary - Male: No hematuria, No dysuria Integumentary: No rash, No itch, No color change Physical Exam Date Time Temp Pulse Resp B/P (MAP) Pulse Ox O2 Delivery O2 Flow Rate FiO2 04/11/17 08:28 92 Room Air 04/11/17 07:49 36.7 62 16 112/70 (84) 92 Room Air 04/11/17 00:15 Room Air 04/10/17 23:08 36.7 71 18 135/77 (96) 93 Room Air 04/10/17 15:35 Room Air 04/10/17 15:32 36.9 64 18 116/71 (86) 94 Room Air 04/10/17 11:44 36.7 60 22 120/68 (85) 91 Room Air General Appearance: WD/WN, no apparent distress Head: normocephalic, atraumatic Eyes: normal inspection, sclerae normal ENT: hearing grossly normal Neck: supple, trachea midline Respiratory/Chest: chest non-tender, lungs clear, normal breath sounds, no respiratory distress, no accessory muscle use Cardiovascular: regular rate, rhythm, + systolic murmur Abdomen/GI: normal bowel sounds, non tender, soft, no organomegaly Back: normal inspection, no CVA tenderness Extremities/Musculoskelatal: no calf tenderness, normal capillary refill, + pertinent finding (right knee with moderate edema and mild warmth) Neurologic/Psych: alert, normal mood/affect Skin: normal color, warm/dry, no rash, + pertinent finding (no erythema of the right knee) Laboratory Results CHEST 2 VIEWS ROUTINE CLINICAL HISTORY: 87 years-old Male presenting with valvular heart disease. bacteremia. Pre-op. TECHNIQUE: PA and lateral views of the chest were obtained. COMPARISON: 07/21/2016. FINDINGS: Median sternotomy wires, prosthetic aortic valve and epicardial pacing wires noted. Cardiomediastinal silhouette normal. Persistent elevation of the left hemidiaphragm. Lungs and pleural spaces clear. Osseous structures normal. Cholecystectomy clips and IVC filter noted. Mild gaseous distention of colon. IMPRESSION: 1. No acute cardiopulmonary disease. RUN DATE: 04/11/17 [facility] LAB PAGE 1 RUN TIME: 745 Specimen Inquiry PATIENT: Say NAYAK [facility] #: [id number] [facility] U # : [id number] AGE/SX: 87/M ROOM: [facility] REG : 04/09/[address]: Goldy Vasquez M. : 1930 BED: 2 DIS : STATUS: ADM IN TLOC: SPEC #: [id number] LU[place]: 04/09/17 STATUS: RES REQ #: [id number] RECD: 04/09/17-[address] [facility] [address]: Goldy Vasquez M.D. SOURCE: BLOOD ENTR: 04/09/17-[address] [facility] [address]: Benedicto Lion DO [facility]: ORDERED: BLOOD CULTURE Procedure Result Verified Site EUNICED CULT Preliminary 04/11/17-745 Organism 1 ENTEROCOCCUS SPECIES SENS SENSITIVITY TO FOLLOW Phoned Positive Blood Culture Gram Stain Report to HERBERTH LOUISE on 04/10/17 At 0522 By DAISY. Results were verbalized back to DAISY. Item Value Date Time Gram Stain - Final Resulted 04/09/17 1740 Joint Fluid/Space (Synovial) Knee Blood Culture - Preliminary Resulted 04/09/17 1230 Blood Enterococcus Species Blood Culture - Preliminary Resulted 04/09/17 1219 Blood Enterococcus Species Last 24 Hours Test 04/11/17 06:08 04/11/17 06:59 Creatinine 1.00 mg/dl Est Creatinine Clear Calc Drug Dose 47.8 ml/min Estimated GFR () 78.6 Estimated GFR (Non- 67.8 Assessment & Plan Patient with Enterococcal bacteremia, possible septic versus seeded right knee with pansensitive E. Faecalis, hx of AVR, and possible vegetation of the AV. Patient did have echocardiogram which showed thickening of the mitral valve and sub-valvular density of the AV. Probable endocarditis. Patient is anticipating TRINI today. He is currently on IV Vancomycin. 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 The patient likely will eventually be able to transition to IV Daptomycin (likely at 10mg/kg dosing), but will need to continue Amp/Gent pending repeat cultures and further workup. Will repeat blood cultures. We will follow. PROVIDER ADDENDUM: Patient examined and reviewed with PA. Agree with above assessment.
[2017-04-11] MEDS ORDERED: GENTAMICIN CONSULT ACTIVE PRN (12:15)
[2017-04-11] MEDS ORDERED: AMPICILLIN PHARMACY CONSULT IN PROGRESS PRN (12:15)
[2017-04-11 12:30] LABS: BASO % 0.4 %; BASO ABS # 0.03 K/uL (0-0.2); COMPLETE YES; EOS % 3.1 %; HEMATOCRIT 38.9 % (42-52); IG% 1.1 %; LYMPH % 16.9 %; LYMPH ABS # 1.38 K/uL (1.2-3.4); MEAN CORPUSCULAR HEMOGLOBIN 29.4 pg (25-34); MEAN CORPUSCULAR HGB CONC 33.4 g/dl (32-36); MEAN PLATELET VOLUME 9.9 fL (7.4-10.4); MONO % 7.5 %; PLATELET COUNT 367 K/uL (130-400); RED BLOOD COUNT 4.42 M/uL (4.7-6.1); WHITE BLOOD COUNT 8.15 K/uL (4.8-10.8)
--- NOTE | 2017-04-11 12:57 | Pharmacy Progress Note ---
Pharmacy Abx Initial Consult Date of Service Apr 11, 2017. Pharmacy Dosing Scope Date of Consult: 04/11/17 Consultation requested by: Mimi Key PA-C Pharmacy is consulted to initiate Gentamicin and Ampicillin IV dosing therapies as synergistic therapy for enterococcal endocarditis, order appropriate labs and adjust drug dose/frequency. Subjective The patient is a 87 year old male admitted on Apr 09, 2017 at 11:43. Objective Height (Feet): 5 Height (Inches): 6.00 Weight (Kilograms): 69.100 Vital Signs (Past 12Hrs) Vital Signs Past 12 Hours Date Time Temp Pulse Resp B/P (MAP) Pulse Ox O2 Delivery O2 Flow Rate FiO2 04/11/17 08:28 92 Room Air 04/11/17 07:49 36.7 62 16 112/70 (84) 92 Room Air Lab Results (24Hrs) Laboratory Tests (24 Hours) Test 04/11/17 11:52 White Blood Count 8.15 K/uL (4.8-10.8) Red Blood Count 4.42 M/uL (4.7-6.1) L Hemoglobin 13.0 g/dL (14.0-18.0) L Hematocrit 38.9 % (42-52) L Mean Corpuscular Volume 88.0 fL (80-100) Mean Corpuscular Hemoglobin 29.4 pg (25-34) Mean Corpuscular Hemoglobin Concent 33.4 g/dl (32-36) Platelet Count 367 K/uL (130-400) Mean Platelet Volume 9.9 fL (7.4-10.4) Neutrophils (%) (Auto) 71.0 % Lymphocytes (%) (Auto) 16.9 % Monocytes (%) (Auto) 7.5 % Eosinophils (%) (Auto) 3.1 % Basophils (%) (Auto) 0.4 % Neutrophils # (Auto) 5.79 K/uL (1.4-6.5) Lymphocytes # (Auto) 1.38 K/uL (1.2-3.4) Monocytes # (Auto) 0.61 K/uL (0.11-0.59) H Eosinophils # (Auto) 0.25 K/uL (0-0.5) Basophils # (Auto) 0.03 K/uL (0-0.2) Micro Results Date/Time Source Procedure Growth Status 04/11/17 11:55 Blood Blood Culture Pending Ordered 04/11/17 11:55 Blood Blood Culture Pending Ordered 04/09/17 12:30 Blood Blood Culture - Preliminary Enterococcus Species Resulted 04/09/17 12:19 Blood Blood Culture - Preliminary Enterococcus Species Resulted 04/09/17 17:40 Joint Fluid/Space (Synovial) Knee Gram Stain - Final Resulted 04/09/17 17:40 Bacterial Culture - Preliminary Gram Positive Cocci Resulted Assessment & Plan Assessment 87 year old male: * septic right knee. Culture which was done on 04/07/2017 is growing gram- positive cocci * Congenital absence of the left kidney discovered at that time he had his retrograde pyelogram in 1990 (aSchi Key PA-C and Dr. 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 * Goal trough level for synergistic therapy with ampicillin : less than 2 mcg/mL * Goal peak level for synergistic therapy with ampicillin : ~3 mcg/mL * Peak level ordered for 04/12/17 ~30 minutes after the 1200 dose. * Trough level ordered for 04/12/17 ~30 minutes before the 0000 dose (that will be administered on 04/13/17). Ampicillin * 2000mg IV every 6 hours for enterococcal endocarditis synergy for CrCl 10-50mL /min (CrCl ~48mL/min). Pharmacy will continue to follow and will adjust dose/frequency as necessary. Thank you.
[2017-04-11] MEDS ORDERED: GENTAMICIN INJ 120 MG in DEXTROSE 5% 100ML 100 ML IV SCH (13:00)
[2017-04-11 13:06] LABS: BLOOD UREA NITROGEN 16 mg/dl (7-18); BUN/CREATININE RATIO 17.1 (10-20); CALCIUM 9.1 mg/dl (8.5-10.1); CARBON DIOXIDE 22 mmol/L (21-32); CHLORIDE 107 mmol/L (98-107); CREATININE 0.91 mg/dl (0.60-1.40); GLUCOSE 91 mg/dl (70-99); SODIUM 138 mmol/L (136-145)
[2017-04-11] MEDS: AMPICILLIN IV 2,000 MG in SODIUM CHLOR 0.9% AD-VAN 100ML 100 ML IV SCH ×3 (13:29→22:57)
--- NOTE | 2017-04-11 14:02 | PROGRESS NOTE ---
DATE: 04/11/2017 CARDIOLOGY CONSULTATION FOLLOWUP NOTE PRIMARY DOCTOR: Dr. Shay. SUBJECTIVE: The patient feels improved this morning, right knee is less tender. Notes no febrile complaints. Notes no chest pains, tachypalpitations, is "hungry. Notes no GI complaints. Notes no abdominal pain or discomfort. OBJECTIVE: VITAL SIGNS: Heart rate is 60, blood pressure is 120/68, O2 saturations 93% on room air. NECK: Thin. There is no jugular venous distention. LUNGS: Clear with good aeration to both bases. CARDIOVASCULAR: Regular with a grade 2/6 systolic murmur. There is no diastolic murmur. ABDOMEN: Soft, nontender. EXTREMITIES: Without cyanosis or clubbing. There is no peripheral edema. There is tenderness at the right knee. There is no palpable cord or Homans sign. LABORATORY AND IMAGING DATA: Reviewed. Cultures reveal both knee culture as well as both blood cultures is growing Enterococcus faecalis, pansensitive. White cell count is 8.1, hemoglobin is 13.0, and hematocrit is 38.9. Lab work notable on admission - sed rate was 50, C-reactive protein was 14.7. Echocardiogram done yesterday demonstrates a small moderately hypertrophied left ventricle with hyperdynamic LV function. There is a bioprosthetic valve visualized in the aortic valve position. Gradient was normal for the valve. There is no perivalvular abscess, there is no valvular insufficiency and valve leaflets were well visualized and freely mobile. There is no visualized vegetation, though there is a subvalvular density that may represent artifact versus vegetation, mitral valve and tricuspid valve structure and pulmonary valve limited views appeared normal. IMPRESSION: An 87-year-old male who presents with Enterococcal faecalis septicemia and septic joint with underlying history of a bioprosthetic aortic valve. As noted, blood cultures are positive in 2 cases. A transthoracic echocardiogram yesterday did not demonstrate overt vegetation, though vegetation may be suspected depending on the views obtained. PLAN: We will repeat a transthoracic echo with better imaging of the valve structure. Of note, there is no paravalvular abscess. Valve structure appears fully functional with mobile leaflets and no structural insufficiency. I have discussed findings in detail with patient and family. 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 At this time, it does not appear that TRINI would change clinical course or management. Given pansensitive Enterococcal faecalis and presence of a prosthetic mitral valve, the patient will require extended course of antibiotic therapy. Infectious disease is involved, valve structure is fully functioning without deterioration. Will repeat echocardiographic images via transthoracic to reassess sub valvular area. Would recommend EKG serially to watch to conduction changes. Repeat Echo, blood cultures post antibiotics. Of note, the Enterococcal faecalis sepsis raises concerns of possible GI source of seeding. MICHEL
[2017-04-11] MEDS: GENTAMICIN INJ 80 MG in DEXTROSE 5% 100ML 100 ML IV SCH (14:51)
[2017-04-11 15:00] VITALS: BP 116/71; PULSE 69; TEMP 36.7; O2SAT 92
--- NOTE | 2017-04-11 15:34 | CARDIOLOGY PROGRESS NOTE ---
DATE: 04/11/2017 DATE: 04/11/2017 Please refer to my note from earlier today. Additional information is provided after repeat transthoracic echocardiographic images were obtained. There was excellent visualization of the aortic valve prosthesis. Prior concern regarding subvalvular abnormality reflects calcium and valve structure induced artifact. There is no visualized vegetation. There is no valvular insufficiency and valvular structure remains freely mobile and stable in position. There was moderate to heavy calcification of the anterior mitral valve leaflet as well, also without visualized vegetation. Overall recommendations however were unchanged given the setting of Enterococcus faecalis septicemia bioprosthetic aortic valve would treat with extended course of antibiotic therapies.
--- NOTE | 2017-04-11 15:41 | ECHOCARDIOGRAM REPORT ---
*NOTICE TO RECEIVING CONSTITUTION PARTY AGENCY This information is strictly Confidential and protected under [place] law. [place] law prohibits you from making any further disclosure of this information unless further disclosure is expressly permitted by the written consent of the person to whom it pertains or is authorized by law. A general authorization for the release of medical or other information is not sufficient for this purpose. Hospital accepts no responsibility if the information is made available to any other person, INCLUDING THE PATIENT. Interpretation Summary * Name: Say NAYAK Study Date: 04/11/2017 03:00 PM BP: 112/70 mmHg * Patient Location: [facility] HR: 62 * : 1930 (M/d/yyyy) Gender: Male Height: 66 in * Age: 87 yrs Ethnicity: CA Weight: 152 lb * Ordering Physician: Parmjit Harkins MD, FACC * Referring Physician: Parmjit Harkins MD, FACC * Performed By: Raciel Velasquez RCS * * Reason For Study: Reassess Aortic Valve * BSA: 1.8 m2 * -- Conclusions -- * Limited views were obtained with direct pysician supervison * Prior noted sub aortic valvle abnormaltiy reflects imaging artifact from aortic valve prosthesis and calcified mitral valve. * No vegetation is visulalized. * Aortic valve prosthesis is normally functional. Procedure Details * A two-dimensional transthoracic echocardiogram was performed. * A two-dimensional transthoracic echocardiogram, with color flow Doppler was performed. * Limited views were obtained.
--- NOTE | 2017-04-11 16:18 | PROGRESS NOTE ---
DATE: 04/11/2017 CHIEF COMPLAINT: Continued effusion and pain of the right knee. PROGRESS: Albin was seen and examined at bedside today. Overall, his knee pain is improving, although it is still painful. He has been up and ambulating, he says it hurts on the medial aspect of his knee. He has been seen by cardiology and had a transesophageal echo. He has already been seen by infectious disease as well. PHYSICAL EXAMINATION: Right knee: He does have 1+ effusion on exam today. It seems a little bit less than it was yesterday. He has range of motion from about 15-90 degrees, all of his pain is located along the medial joint line and over the distal medial femoral condyle, not much pain laterally. There is no erythema. The aspirate cultures from the knee are growing gram positive cocci. Preliminary blood cultures are growing Enterococcus. Repeat blood cultures have been done. IMPRESSION: Continued right knee effusion, pseudogout versus septic joint. PLAN: All the lab values including his clinical exam and his x-rays point towards pseudogout; however, the organism growing from his knee is the same one growing in the blood cultures, so that must be concerned for possible septic joint. I did discuss the case with Dr. Donald of infectious disease, personally. He said regardless because of his heart valve, he is going to be on long-term antibiotics and he would recommend continued just treating the knee conservatively and see if it improves. As long as the knee improves, nothing will need to be done; however, if his knee worsens or the infusion increases, then he might need an arthroscopic I&D. Will continue to follow him closely.
[2017-04-11] MEDS ORDERED: VANCOMYCIN TROUGH ONE (19:30)
--- NOTE | 2017-04-11 20:13 | Progress Note ---
Progress Note Date of Service Apr 11, 2017. Progress Note 87-year old male admitted with multiple problems: * septic arthritis of the right knee. Arthrocentesis done on 04/07/2017 grew Enterococcus faecalis. Repeat arthrocentesis done by Dr. Lion after admission is growing gram-positive cocci and the final report is pending. 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 Status post Winifred filter placement. * Gastroesophageal reflux * Dementia with memory deficit * History of squamous cell carcinoma of the tongue with history of partial growths checked him he Patient was admitted. Cultures were done. He was started on IV vancomycin. He remained afebrile. His WBC count remained normal. He was seen in orthopedic consultation by Dr. Benedicto Lion. As noted above repeat arthrocentesis was done. Yesterday patient was started on IV Toradol. Patient was seen in cardiology consultation by Dr. Parmjit Harkins. The concern was about any possible endocarditis related to his bioprosthetic aortic valve and the fact that he did have a gram-positive cocci or enterococcus bacteremia. An echocardiogram was done yesterday. Dr. Parmjit Harkins felt that one area below the valve was not clearly visualize. He repeated the echocardiogram today under his direct supervision. There is no evidence of any vegetation. No evidence of any endocarditis. The valve is functioning well. Today patient was also seen by Dr. Donald in infectious disease consultation. He has been on vancomycin. His antibiotic was changed to ampicillin and gentamicin. Today when I saw the patient in the morning his condition had improved. This evening he is feeling much better. sitting up in the chair.The pain in his right knee has subsided. we'llHe remains afebrile. His appetite is improving. He is able to ambulate short distance in their own. EXAMINATION: GENERAL : Well developed. Well nourished. No acute distress. VITAL SIGNS ; Blood Pressure : 112/70, pulse 62, respirations 16, temperature 36.7, oxygen saturation 92% on room air SKIN : Warm and dry. No rash. HEENT :No mucosal abnormalities NECK : Supple. No lymph node or thyroid enlargement. No JVD. Normal carotid pulses. Bilateral carotid bruits. CHEST : Normal. Scar from prior surgery HEART: Regular heart tones with 2/6 systolic murmur. No rub no gallop. LUNGS: Clear. Normal breath sounds. ABDOMEN: Soft nontender. No organomegaly or masses. BACK: No spine or CVA tenderness. EXTREMITIES: Markedly decreased swelling in his right leg. Decreased swelling of the right knee. No redness. There is still persistent tenderness especially along the lateral aspect of his knee. LABORATORY TESTS: WBC count 8150, hemoglobin 13, hematocrit 38.9, platelet count 367,000. Sodium 138, potassium 4.5, chloride 107, CO2 22, BUN 16, creatinine 0.91, glucose 91, calcium 9.1. As noted repeat echocardiogram did not show any evidence of vegetations of the bioprosthetic valve. ASSESSMENT: * septic arthritis right knee. Culture grew Enterococcus faecalis * Bacteremia secondary to the same bacteria * Bioprosthetic aortic valve * Severe osteoarthritis right knee * Chondrocalcinosis * Congenital absence of the left kidney PLAN: * antibiotic change as per Dr. Donald. Given the fact that he has a solitary kidney Will be closely monitoring his renal function. * Continue his other medications * Will start planning for discharge. I did order physical and occupational therapies. Will see how he does over the next 2-3 days. Will decide if he needs to go to a rehabilitation facility or if he is able to go directly home. If this is the case then I will arrange for him to receive his IV antibiotics in the medical treatment unit and hopefully he will be placed on an antibiotic that could be administered only once every 24 hours. * I will wait for the new set of blood cultures that was done today. If the cultures come back negative then will proceed with placement of a PICC line * his condition, test results, and the plan of treatment were discussed tonight with the patient ,his , and his daughter.
[2017-04-11 22:57] VITALS: BP 112/65; PULSE 68; TEMP 36.7; O2SAT 92
[2017-04-12] MEDS: GENTAMICIN INJ 80 MG in DEXTROSE 5% 100ML 100 ML IV SCH ×2 (00:09→12:11)
[2017-04-12] MEDS: HYDROCODONE/ACETAMOPHEN 5/325MG TAB PO PRN ×2 (01:25→18:57)
[2017-04-12] MEDS: KETOROLAC TROMETHAMINE 15 MG/ML VIAL IV. SCH ×4 (03:58→21:46)
[2017-04-12] MEDS: LEVOTHYROXINE 100 MCG TAB PO SCH (05:27)
[2017-04-12] MEDS: AMPICILLIN IV 2,000 MG in SODIUM CHLOR 0.9% AD-VAN 100ML 100 ML IV SCH ×4 (05:28→23:29)
[2017-04-12 07:40] VITALS: BP 127/75; PULSE 75; TEMP 36.4; O2SAT 97
[2017-04-12 08:14] LABS: HEMATOCRIT 36.9 % (42-52); MEAN CELL VOLUME 88.9 fL (80-100); MEAN CORPUSCULAR HEMOGLOBIN 30.1 pg (25-34); MEAN CORPUSCULAR HGB CONC 33.9 g/dl (32-36); MEAN PLATELET VOLUME 9.9 fL (7.4-10.4); PLATELET COUNT 394 K/uL (130-400); RED BLOOD COUNT 4.15 M/uL (4.7-6.1); WHITE BLOOD COUNT 7.16 K/uL (4.8-10.8)
[2017-04-12] MEDS: DONEPEZIL HCL 5 MG TAB PO SCH (08:45)
[2017-04-12] MEDS: ASPIRIN 81 MG ECTAB PO SCH (08:45)
[2017-04-12] MEDS: METOPROLOL TARTRATE 25 MG TAB PO SCH ×2 (08:46→20:54)
[2017-04-12] MEDS: PANTOprazole SOD 40 MG TAB PO SCH (08:46)
[2017-04-12] MEDS: HEPARIN SOD 5000 UNIT/0.5 ML CARP SQ SCH ×2 (08:51→20:58)
[2017-04-12] MEDS ORDERED: GENTAMICIN INJ 60 MG in DEXTROSE 5% 100ML 100 ML IV SCH (09:00)
--- NOTE | 2017-04-12 09:45 | PROGRESS NOTE ---
DATE: 04/12/2017 DATE: 04/12/2017 CHIEF COMPLAINT: Right knee pain and effusion. HISTORY OF PRESENT ILLNESS: Overall, Albin's right knee continues to improve. He says he is feeling better today and much better than on admission. He has been up and ambulating some. He still has some pain on the medial aspect of his knee. PHYSICAL EXAMINATION: RIGHT KNEE: The effusion is going down. He has no pain laterally. Most of his pain is located medially along the medial joint line and over the distal medial femoral condyle. Preliminary cultures from the aspirate I did in the hospital do show gram positive cocci. IMPRESSION: 1. Right knee pain and effusion with pseudogout, possible septic joint. 2. Bacteremia. PLAN: At this point he is improving. His knee is feeling better, will continue Toradol for pain control with his knee and for the treatment of pseudogout and will continue on vancomycin for his bacteremia. Infectious disease is on board and I talked with him specifically. We will continue to follow him closely.
[2017-04-12] MEDS ORDERED: GENT. PEAK 1 EA IV SCH (13:30)
[2017-04-12] MEDS ORDERED: VANCOMYCIN TROUGH ONE (13:30)
--- NOTE | 2017-04-12 14:33 | Progress Note ---
Progress Note Date of Service Apr 12, 2017. Progress Note 87-year-old admitted with right septic knee. The initial culture done on 04/07/2017 grew Enterococcus faecalis. He was started on IV vancomycin. Blood cultures done on admission also grew Enterococcus faecalis. A second arthrocentesis was done after admission by Dr. Benedicto Lion and it is growing a gram-positive cocci but the final identification is still pending. The report from today indicated that it is growing gamma hemolytic Streptococcus species. Patient was seen by Dr. Lion in orthopedic consultation. He was also seen by Dr. Parmjit Harkins in cardiology. Subsequently he was seen in infectious disease consultation by Dr. Donald. His antibiotic treatment was changed from vancomycin to a combination of ampicillin and gentamicin. Patient remains afebrile. Actually throughout this illness he did not exhibit any fever.his WBC count remained within the normal range. His condition has markedly improved. As noted he does not have any fever. The pain in his right knee has subsided. He is able to ambulate. His appetite has improved. EXAMINATION: GENERAL : Well developed. Well nourished. not complaining of any pain in his knee. VITAL SIGNS: Blood pressure 127/75, pulse 75, respiration 18, temperature 36.4, oxygen saturation 97% on room air SKIN: Warm and dry. There is no rash. HEENT :He does wear hearing aids. Wears glasses. NECK: Supple. No tenderness. No JVD. Bilateral carotid bruit. HEART: Regular heart tones with 2/6 systolic murmur. No rub no gallop. LUNGS: Clear. Normal breath sounds. ABDOMEN: Soft nontender. No organomegaly or masses. BACK: No tenderness EXTREMITIES: Swelling in his right leg has resolved. The pain in his right knee and tenderness also resolved. He still has evidence of small effusion. Today's laboratory tests WBC count 7160 hemoglobin 12.5, hematocrit 36.9, platelet count 394,000. Creatinine 1.0. ASSESSMENT: * septic right knee * Bacteremia * Prosthetic aortic valve * Dementia * Chondrocalcinosis * Severe osteoarthritis of the right knee * Congenital absence of the left kidney PLAN: * continue the same medications * Encourage ambulation * Her last blood culture results are pending. * Will plan for a PICC line for continuation of his outpatient antibiotic therapy. * Will wait for Dr. Donald"s recommendation as far as antibiotic choice and length of treatment.
[2017-04-12 15:26] VITALS: BP 148/66; PULSE 75; TEMP 36.5; O2SAT 93
[2017-04-12 20:53] VITALS: BP 145/74; PULSE 85
--- NOTE | 2017-04-12 21:31 | Progress Note ---
Progress Note Date of Service Apr 12, 2017. Progress Note 3 important issues to note to this evening: * danny patient is having urinary frequency. His nurse noted that his urine was foul smelling. I will order a urinalysis and urine culture. Also will go ahead and scan his bladder to check for urinary retention. * as previously noted. Patient has been on vancomycin IV since his admission. On Friday he was changed from vancomycin to a combination of gentamicin and ampicillin. 2 blood cultures were drawn at that time. Danny the report indicates that both blood cultures are positive for gram-positive cocci. * as previously noted the pain and the swelling and the redness in his right knee have all improved. He still has evidence of an effusion of the right knee. I need to check with Dr. Lion to see if he recommends any further measures such as arthrocentesis and repeat culture of the synovial fluid or possibly debridement of his right knee.
[2017-04-12 22:42] LABS: URINE APPEARANCE CLEAR (CLEAR); URINE BILIRUBIN NEG (NEG); URINE COLOR YELLOW; URINE NITRITE NEG (NEG); UROBILINOGEN NEG (NEG)
[2017-04-12 22:47] LABS: MANUAL MICROSCOPIC REQUIRED? NO; REVIEW REQ? NO
[2017-04-12 22:58] VITALS: BP 108/60; PULSE 69; TEMP 37.1; O2SAT 92
[2017-04-12] MEDS ORDERED: GENTAMICIN TROUGH SCH (23:30)
[2017-04-13] MEDS: GENTAMICIN INJ 80 MG in DEXTROSE 5% 100ML 100 ML IV SCH ×2 (00:30→13:27)
[2017-04-13] MEDS: KETOROLAC TROMETHAMINE 15 MG/ML VIAL IV. SCH ×4 (03:14→21:47)
[2017-04-13] MEDS: AMPICILLIN IV 2,000 MG in SODIUM CHLOR 0.9% AD-VAN 100ML 100 ML IV SCH ×4 (05:31→23:49)
[2017-04-13] MEDS: LEVOTHYROXINE 100 MCG TAB PO SCH (05:33)
[2017-04-13 06:42] VITALS: BP 147/75; PULSE 70; TEMP 36.7; O2SAT 97
[2017-04-13 06:57] LABS: BASO % 0.3 %; BASO ABS # 0.03 K/uL (0-0.2); COMPLETE YES; EOS % 2.6 %; HEMATOCRIT 35.7 % (42-52); IG% 0.7 %; LYMPH % 20.5 %; LYMPH ABS # 1.85 K/uL (1.2-3.4); MEAN CELL VOLUME 89.3 fL (80-100); MEAN CORPUSCULAR HEMOGLOBIN 29.5 pg (25-34); MEAN CORPUSCULAR HGB CONC 33.1 g/dl (32-36); MEAN PLATELET VOLUME 9.8 fL (7.4-10.4); MONO % 8.5 %; NEUT % 67.4 %; PLATELET COUNT 375 K/uL (130-400); WHITE BLOOD COUNT 9.01 K/uL (4.8-10.8)
[2017-04-13 07:32] LABS: BLOOD UREA NITROGEN 12 mg/dl (7-18); BUN/CREATININE RATIO 11.7 (10-20); CALCIUM 9.2 mg/dl (8.5-10.1); CARBON DIOXIDE 29 mmol/L (21-32); CHLORIDE 108 mmol/L (98-107); CREATININE 0.99 mg/dl (0.60-1.40); GLUCOSE 100 mg/dl (70-99); SODIUM 142 mmol/L (136-145)
[2017-04-13] MEDS: DONEPEZIL HCL 5 MG TAB PO SCH (08:47)
[2017-04-13] MEDS: PANTOprazole SOD 40 MG TAB PO SCH (08:48)
[2017-04-13] MEDS: ASPIRIN 81 MG ECTAB PO SCH (08:48)
[2017-04-13] MEDS: METOPROLOL TARTRATE 25 MG TAB PO SCH ×2 (08:48→20:39)
[2017-04-13] MEDS: HEPARIN SOD 5000 UNIT/0.5 ML CARP SQ SCH ×2 (08:51→20:41)
--- NOTE | 2017-04-13 09:03 | PROGRESS NOTE ---
DATE: 04/13/2017 CHIEF COMPLAINT: Right knee pain and effusion that is resolving. PROGRESS: Albin was seen and examined at bedside today. Overall, he continues to improve. He was up ambulating in the hallways late yesterday. He says his knee feels much better than it did upon admission. PHYSICAL EXAMINATION: RIGHT KNEE: There is a slight 1+ effusion at this time. He has good motion from 5 to 110 degrees. Most of his pain is located along the medial joint line and over the distal medial femoral condyle. Cultures from the aspirate do show a strep species and repeat blood cultures continue to show gram positive cocci. IMPRESSION: 1. Bacteremia. 2. Right knee effusion with pseudogout versus possible septic joint. PLAN: His knee continues to improve. I think the Toradol might be helping some. He has pseudogout crystals in his aspirate and cell count within the range of pseudogout; however, the cultures were positive and he does have the bacteremia. His knee continues to improve, so I think, we will continue to treat him with the anti-inflammatories as well as the IV antibiotics. Infectious disease and cardiology follow him closely as well.
[2017-04-13 09:39] VITALS: BP 158/75; PULSE 75; O2SAT 96
[2017-04-13 15:10] VITALS: BP 142/74; PULSE 64; TEMP 36.6; O2SAT 95
--- NOTE | 2017-04-13 15:52 | Pharmacy Progress Note ---
Pharmacy Antibiotic Prog Note Date of Service Apr 13, 2017. Subjective The patient is currently receiving gentamicin 80 mg IV every 12 hours, and ampicillin 2 Gm IV q6h. The patient is currently on day # 3 of ampicillin and gentamicin IV therapy, following 2 days of vancomycin. Objective Height (Feet): 5 Height (Inches): 6.00 Weight (Kilograms): 69.100 Levels: Item Value Date Time Gentamicin Level Peak 3.9 mcg/ml L 04/12/17 1332 Gentamicin Level Trough 1.80 mcg/ml H 04/12/17 2322 Calculated actual trough 1.45 mcg/ml. Lab Results (24hrs): Test 04/12/17 22:30 04/12/17 23:22 04/13/17 06:14 04/13/17 08:14 Urine Color YELLOW Urine Appearance CLEAR (CLEAR) Urine pH 5.0 (4.5-7.5) Urine Specific [place] 1.020 (1.000-1.030) Urine Protein NEG (NEG) Urine Glucose (UA) NEG (NEG) Urine Ketones NEG (NEG) Urine Occult Blood NEG (NEG) Urine Nitrite NEG (NEG) Urine Bilirubin NEG (NEG) Urine Urobilinogen NEG (NEG) Urine Leukocyte Esterase NEG (NEG) Gentamicin Level Trough 1.80 mcg/ml (0-1) White Blood Count 9.01 K/uL (4.8-10.8) Red Blood Count 4.00 M/uL (4.7-6.1) Hemoglobin 11.8 g/dL (14.0-18.0) Hematocrit 35.7 % (42-52) Mean Corpuscular Volume 89.3 fL (80-100) Mean Corpuscular Hemoglobin 29.5 pg (25-34) Mean Corpuscular Hemoglobin Concent 33.1 g/dl (32-36) Platelet Count 375 K/uL (130-400) Mean Platelet Volume 9.8 fL (7.4-10.4) Neutrophils (%) (Auto) 67.4 % Lymphocytes (%) (Auto) 20.5 % Monocytes (%) (Auto) 8.5 % Eosinophils (%) (Auto) 2.6 % Basophils (%) (Auto) 0.3 % Neutrophils # (Auto) 6.07 K/uL (1.4-6.5) Lymphocytes # (Auto) 1.85 K/uL (1.2-3.4) Monocytes # (Auto) 0.77 K/uL (0.11-0.59) Eosinophils # (Auto) 0.23 K/uL (0-0.5) Basophils # (Auto) 0.03 K/uL (0-0.2) RDW Standard Deviation 43.9 fL (36.4-46.3) RDW Coefficient of Variation 13.4 % (11.5-14.5) Immature Granulocyte % (Auto) 0.7 % Immature Granulocyte # (Auto) 0.06 K/uL (0.00-0.02) Sodium Level 142 mmol/L (136-145) Potassium Level mmol/L (3.5-5.1) 3.9 mmol/L (3.5-5.1) Chloride Level 108 mmol/L (98-107) Carbon Dioxide Level 29 mmol/L (21-32) Anion Gap 5.0 mmol/L (3-11) Blood Urea Nitrogen 12 mg/dl (7-18) Creatinine 0.99 mg/dl (0.60-1.40) Est Creatinine Clear Calc Drug Dose 48.3 ml/min Estimated GFR () 79.6 Estimated GFR (Non- 68.7 BUN/Creatinine Ratio 11.7 (10-20) Random Glucose 100 mg/dl (70-99) Calcium Level 9.2 mg/dl (8.5-10.1) Micro Results: 04/09 joint/synovial fluid- Enterococcus faecalis pansensitive 04/09 blood x2 Ent. faecalis in both pansensitive 04/11 blood x2 Ent. faecalis in both- same as above 04/12 urine NG Recent Pertinent Medications Item Value Date Time Gentamicin 102 ml @ 100 mls/hr 04/11/17 1300 Sulfate 80 mg/ Q12@0000,1200/IV 04/13/17 1327 Dextrose Ampicillin Sodium 100 ml @ 200 mls/hr 04/11/17 1200 2000 mg/Sodium Q6H/IV 04/13/17 1233 Chloride Vancomycin HCl 270 ml @ 125 mls/hr 04/10/17 0800 1000 mg/Sodium Q18H/IV 04/11/17 0203 Chloride Vancomycin HCl 538 ml @ 200 mls/hr 04/09/17 1230 1900 mg/Sodium TODAY@1230 ONCE/IV 04/09/17 1349 Chloride Assessment & Plan These drug levels are: Therapeutic. 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 Continue gentamicin 80 mg IV every 12 hours. Goal peak level estimate: between 3-5 mcg/mL. Goal trough level estimate: between 0.5-1.5 mcg/mL. Will reorder peak and trough in a few days if stable. Ampicillin 2 Gm IV q6h,dose does not need adjustment unless CrCl is less than 50 ml/min. Pharmacy will continue to follow and will adjust dose/frequency as necessary. Thank you
--- NOTE | 2017-04-13 18:03 | Progress Note ---
Progress Note Date of Service Apr 13, 2017. Progress Note 87-year-old male admitted with: * septic right knee. Culture grew Enterococcus faecalis * Bacteremia secondary to the same bacteria * Bioprosthetic aortic * Severe osteoarthritis of the right knee * Chondrocalcinosis * Congenital absence of the left kidney * Dementia Patient was admitted. He was started on IV vancomycin. He remains afebrile. His WBC count remains normal . He was seen in orthopedic consultation by Dr. Benedicto Lion. He repeated the arthrocentesis of the right knee. Culture was also positive for Enterococcus faecalis. He was seen in infectious disease consultation. His antibiotic was changed from vancomycin to a combination of ampicillin and gentamicin on 04/11/2017. He was also seen in cardiology consultation by Dr. Parmjit Harkins. There is no apparent infection involving the bioprosthetic valve. The redness and the swelling and pain in his right knee are subsiding. There is definitely still evidence of effusion. He denied any headache. No dizziness. No chest pain no shortness of breath. No abdominal pain. No nausea no vomiting. No problem with his bowel movements. No problem urinating. He is ambulating with his walker. He is receiving physical and occupational therapy. So far all cultures have been positive. The synovial fluid culture that was done in my office on 04/07/2017, the repeat synovial fluid culture done at the time of admission on 04/09/[address] Lion, the 2 blood cultures done when he was admitted on 04/09/2017. On 04/11/2017 at that time he was changed from vancomycin to the combination of ampicillin and gentamicin 2 blood cultures were done and these 2 blood cultures are also positive for Enterococcus faecalis. EXAMINATION: GENERAL : Well developed. Well nourished. No acute distress. VITAL SIGNS ; Blood Pressure : 147/75 Pulse : 70 respirations 17 Temperature : 36.7 oxygen saturation 97% on room air SKIN : Warm and dry. No rash. HEENT :Wears glasses. Wears hearing aid. No mucosal abnormalities. NECK : Supple. No lymph node or thyroid enlargement. No JVD. Normal carotid pulses. Bilateral carotid bruits. HEART: Regular heart tones with 2/6 systolic murmur. No rub no gallop. LUNGS: Clear. Normal breath sounds. ABDOMEN: Soft nontender. No organomegaly or masses. Good bowel sounds. BACK: No spine or CVA tenderness. EXTREMITIES: Persistent swelling of the right knee with evident effusion. Minimal edema of the right ankle. No clubbing no cyanosis. LABORATORY TESTS: WBC count 9010, hematocrit 35.7, hemoglobin 11.8, platelet count 375,000. Sodium 142, potassium 3.9, chloride 108, CO2 29, BUN 12, creatinine 0.99, glucose 100, calcium 9.2. As noted all his cultures of the synovial fluid which was done twice and 4 blood cultures were ordered positive for Enterococcus faecalis His urine culture is negative so far. ASSESSMENT: * septic arthritis right knee * Bacteremia or secondary to Enterococcus faecalis. Given his presentation and the results of the synovial fluid I think the source of the infection is his right knee. No other source is evident. * Bioprosthetic aortic valve. His evaluation so far showed no evidence of any obvious involvement * Osteoarthritis * Chondrocalcinosis * Dementia PLAN: * continue the same antibiotics as recommended by Dr. Donald. * Obviously I am concerned about the eradication of the source of the infection given the positive second set of blood cultures done on 04/11/2017 while he is on antibiotics. I spoke with Dr. Donald this morning. his recommendation is to continue with IV antibiotics for 2 more days. We will repeat a new set of blood cultures at that time. Decide on any different approach. * Given the positive blood cultures I would hold off on ordering at PICC line at this point. * This morning I spoke with the patient his and his daughter were also in that her wound. His condition was discussed. Explained to them the treatment and the plan.
[2017-04-13] MEDS: HYDROCODONE/ACETAMOPHEN 5/325MG TAB PO PRN (18:34)
[2017-04-13 20:36] VITALS: BP 122/71; PULSE 64
[2017-04-13 23:15] VITALS: BP 151/82; PULSE 64; TEMP 36.5; O2SAT 91
[2017-04-14] MEDS: GENTAMICIN INJ 80 MG in DEXTROSE 5% 100ML 100 ML IV SCH ×2 (00:24→12:35)
[2017-04-14] MEDS: KETOROLAC TROMETHAMINE 15 MG/ML VIAL IV. SCH ×4 (04:17→21:58)
[2017-04-14] MEDS: AMPICILLIN IV 2,000 MG in SODIUM CHLOR 0.9% AD-VAN 100ML 100 ML IV SCH ×3 (05:20→17:42)
[2017-04-14] MEDS: LEVOTHYROXINE 100 MCG TAB PO SCH (05:21)
[2017-04-14 06:07] LABS: BASO % 0.4 %; BASO ABS # 0.03 K/uL (0-0.2); COMPLETE YES; EOS % 3.3 %; IG% 0.4 %; LYMPH % 14.5 %; LYMPH ABS # 1.09 K/uL (1.2-3.4); MEAN CELL VOLUME 88.6 fL (80-100); MEAN CORPUSCULAR HEMOGLOBIN 28.9 pg (25-34); MEAN CORPUSCULAR HGB CONC 32.6 g/dl (32-36); MEAN PLATELET VOLUME 9.2 fL (7.4-10.4); MONO % 8.4 %; PLATELET COUNT 376 K/uL (130-400); RED BLOOD COUNT 3.95 M/uL (4.7-6.1); WHITE BLOOD COUNT 7.51 K/uL (4.8-10.8)
[2017-04-14 06:37] LABS: CALCIUM 9.1 mg/dl (8.5-10.1); CREATININE 0.97 mg/dl (0.60-1.40); POTASSIUM 3.9 mmol/L (3.5-5.1)
[2017-04-14 06:50] VITALS: BP 144/80; PULSE 72; TEMP 36.7; O2SAT 91
[2017-04-14] MEDS: PANTOprazole SOD 40 MG TAB PO SCH (08:52)
[2017-04-14] MEDS: ASPIRIN 81 MG ECTAB PO SCH (08:53)
[2017-04-14] MEDS: METOPROLOL TARTRATE 25 MG TAB PO SCH ×2 (08:53→20:28)
[2017-04-14] MEDS: DONEPEZIL HCL 5 MG TAB PO SCH (08:53)
[2017-04-14] MEDS: HEPARIN SOD 5000 UNIT/0.5 ML CARP SQ SCH ×2 (08:54→20:28)
--- NOTE | 2017-04-14 13:58 | Infectious Disease Progress Nt ---
Progress Note Date of Service Apr 14, 2017. Subjective Pt evaluation today including: conversation w/ patient, physical exam, chart review, lab review, review of studies, review of inpatient medication list Patient is feeling okay this morning, but is still having some pain in his right knee. His TRINI showed no evidence of vegetations. He continues on ampicillin and gentamicin. His renal function has been stable. His creatinine was 0.97 morning. His repeat blood cultures did grow enterococcus faecalis again. Urine culture showed no growth. He has continued to be afebrile. He states that he has not had any nausea, vomiting, diarrhea, urinary symptoms, or worsening pain. All Other Systems: Reviewed and Negative Medications Current Inpatient Medications Medications (Trade) Dose Ordered Sig/Ani Route Start Time Stop Time Status Last Admin Dose Admin Heparin Sodium (Porcine) (Heparin Sq 5000 Unit/0.5ml) 5,000 unit Q12 SQ 04/09/17 13:16 05/09/17 13:15 04/14/17 08:54 5,000 UNIT Acetaminophen (Tylenol Tab) 500 mg Q4H PRN PO 04/09/17 12:00 05/09/17 11:59 Acetaminophen/ Hydrocodone Bitart ([place] 5/325 Tab) 1 tab Q4H PRN PO 04/09/17 12:00 04/23/17 11:59 04/13/17 18:34 1 TAB Aspirin (Ecotrin Tab) 81 mg DAILY PO 04/10/17 09:00 05/10/17 08:59 04/14/17 08:53 81 MG Levothyroxine Sodium (Synthroid Tab) 100 mcg DAILYBB PO 04/10/17 06:00 05/10/17 05:59 04/14/17 05:21 100 MCG Metoprolol Tartrate (Lopressor Tab) 12.5 mg BID PO 04/09/17 21:00 05/09/17 20:59 04/14/17 08:53 12.5 MG Pantoprazole Sodium (Protonix Tab) 40 mg QAM PO 04/10/17 09:00 05/10/17 08:59 04/14/17 08:52 40 MG Donepezil HCl (Aricept Tab) 5 mg QAM PO 04/10/17 09:00 05/10/17 08:59 04/14/17 08:53 5 MG Ketorolac Tromethamine (Toradol Inj) 15 mg Q6H IV. 04/10/17 16:00 04/15/17 15:59 04/14/17 10:35 15 MG Ampicillin Sodium 2000 mg/Sodium Chloride 100 ml @ 200 mls/hr Q6H IV 04/11/17 12:00 05/23/17 11:59 04/14/17 11:35 200 MLS/HR Miscellaneous Information 1 ea UD PRN N/A 04/11/17 12:15 05/11/17 12:14 Gentamicin Sulfate (Consult) 1 ea UD PRN N/A 04/11/17 12:15 05/11/17 12:14 Gentamicin Sulfate 80 mg/ Dextrose 102 ml @ 100 mls/hr Q12@0000,1200 IV 04/11/17 13:00 05/23/17 12:59 04/14/17 12:35 100 MLS/HR Objective Vital Signs Date Time Temp Pulse Resp B/P (MAP) Pulse Ox O2 Delivery O2 Flow Rate FiO2 04/14/17 07:30 Room Air 04/14/17 06:50 36.7 72 18 144/80 (101) 91 Room Air 04/13/17 23:15 36.5 64 20 151/82 (105) 91 Room Air 04/13/17 20:36 64 122/71 (88) 04/13/17 19:10 Room Air 04/13/17 15:15 Room Air 04/13/17 15:10 36.6 64 18 142/74 (96) 95 Room Air Physical Exam General Appearance: WD/WN, no apparent distress Eyes: normal inspection, sclerae normal ENT: hearing grossly normal Neck: supple, trachea midline Respiratory/Chest: chest non-tender, normal breath sounds, no respiratory distress, no accessory muscle use Cardiovascular: regular rate, rhythm, + systolic murmur Abdomen: normal bowel sounds, non tender, soft Extremities: + swelling (mild edema of the right knee. Mild warmth as well) Neurologic/Psychiatric: alert, normal mood/affect Skin: normal color, warm/dry, no rash Laboratory Results RUN DATE: 04/14/17 [facility] PAGE 1 RUN TIME: 1053 Specimen Inquiry PATIENT: Say NAYAK LOC: ANY U # : [id number] AGE/SX: 87/M ROOM: [facility] REG : 04/09/[address]: Goldy Vasquez M. : 1930 BED: 2 DIS : STATUS: ADM IN TLOC: SPEC #: [id number] LUCHO: 04/09/17 STATUS: COMP REQ #: [id number] RECD: 04/09/[address]: Benedicto Lion DO SOURCE: JOINT FLSP ENTR: 04/09/[address] [facility] [address]: Goldy Vasquez M.D. SPDES: KNEE ORDERED: AER/AGAPITO CULTSMR Procedure Result Verified Site GRAM STAIN Final 04/10/17-745 RESULT MANY POLYS NO ORGANISMS SEEN OR AER/AGAPITO CULT Final 04/14/17-1053 Organism 1 ENTEROCOCCUS FAECALIS QUANITY RARE SENS SENSITIVITY TO FOLLOW ANAS NO ANAEROBES ISOLATED. 1. ENTEROCOCCUS FAECALIS Target Route Dose RX AB Cost M.I.C. IQ ------ ----- ------ -- ------ -------- - ------ AMPICILLIN S <=2 GENT SYNERGY S <=500 VANCOMYCIN S 1 PENICILLIN S 2 DAPTOMYCIN S 1 STREP SYNERGY S <=1000 Streptomycin Synergy Screen S Gentamicin Synergy Screen S S = SENSITIVE I = INTERMEDIATE R = RESISTANT Item Value Date Time Gram Stain - Final Resulted 04/09/17 1740 Joint Fluid/Space (Synovial) Knee Urine Culture - Final Complete 04/12/17 2230 Urine , Clean Catch NO GROWTH - LESS THAN 1,000 COLONIES/ML Blood Culture - Preliminary Resulted 04/11/17 1238 Blood Enterococcus Faecalis Blood Culture - Final Complete 04/11/17 1237 Blood Enterococcus Faecalis Gram Stain - Final Complete 04/09/17 1740 Joint Fluid/Space (Synovial) Knee Last 24 Hours Test 04/14/17 05:54 White Blood Count 7.51 K/uL Red Blood Count 3.95 M/uL Hemoglobin 11.4 g/dL Hematocrit 35.0 % Mean Corpuscular Volume 88.6 fL Mean Corpuscular Hemoglobin 28.9 pg Mean Corpuscular Hemoglobin Concent 32.6 g/dl Platelet Count 376 K/uL Mean Platelet Volume 9.2 fL Neutrophils (%) (Auto) 73.0 % Lymphocytes (%) (Auto) 14.5 % Monocytes (%) (Auto) 8.4 % Eosinophils (%) (Auto) 3.3 % Basophils (%) (Auto) 0.4 % Neutrophils # (Auto) 5.48 K/uL Lymphocytes # (Auto) 1.09 K/uL Monocytes # (Auto) 0.63 K/uL Eosinophils # (Auto) 0.25 K/uL Basophils # (Auto) 0.03 K/uL RDW Standard Deviation 44.3 fL RDW Coefficient of Variation 13.4 % Immature Granulocyte % (Auto) 0.4 % Immature Granulocyte # (Auto) 0.03 K/uL Sodium Level 142 mmol/L Potassium Level 3.9 mmol/L Chloride Level 109 mmol/L Carbon Dioxide Level 27 mmol/L Anion Gap 6.0 mmol/L Blood Urea Nitrogen 9 mg/dl Creatinine 0.97 mg/dl Est Creatinine Clear Calc Drug Dose 49.3 ml/min Estimated GFR () 81.6 Estimated GFR (Non- 70.4 BUN/Creatinine Ratio 9.0 Random Glucose 97 mg/dl Calcium Level 9.1 mg/dl Assessment and Plan Patient with Enterococcal bacteremia, possible septic versus seeded right knee with pansensitive E. Faecalis, & hx of AVR. He is currently on IV Ampicillin and Gentamicin. He should continue current therapy pending at least clearance of blood cultures, but possible for longer term as well. Patient likely will need 4-6 weeks of IV abx therapy. Will repeat blood cultures today. PROVIDER ADDENDUM: Pt. reviewed with MONICA. Agree with above assessment.
[2017-04-14 15:39] VITALS: BP 121/74; PULSE 67; TEMP 36.7; O2SAT 92
--- NOTE | 2017-04-14 18:21 | Progress Note ---
Progress Note Date of Service Apr 14, 2017. Progress Note 87-year-old male admitted with septic right knee. Culture grew Enterococcus faecalis. On admission he was started on IV vancomycin. Blood cultures did grow the same bacteria. Repeat culture of the synovial fluid of the right knee also grew Enterococcus faecalis. An arthrocentesis was done by myself in the office prior to his admission and it also grew Enterococcus faecalis. Patient was admitted. He was continued on IV vancomycin. Cardiology consultation was requested. He was seen by Dr. Parmjit Harkins. Echocardiograms did not show evidence of involvement of his prosthetic aortic valve. He was also seen in orthopedic surgery consultation by Dr. Benedicto Lion. Subsequently he was seen in infectious disease consultation by Dr. Donald. He remains afebrile. His WBC count remained normal. He was started on IV Toradol for inflammation and pain. He had multiple cultures done including the 2 cultures from his knee and also 2 sets of blood cultures each a set had 2 cultures and they all tested positive for Enterococcus faecalis. On 04/11/2017 his antibiotic was changed from vancomycin to a combination of ampicillin and gentamicin. At this time his condition has improved. He denied any headache or dizziness or lightheadedness. No chest pain no shortness of breath. No abdominal pain no nausea no vomiting. He is tolerating his diet very well. No problem with his bowel movements. No problem with urination. Examination: General he is well-developed in no distress. Vital signs blood pressure 144/80, pulse 72, respiration 18, temperature 36.7, oxygen saturation 91% on room air Skin is warm and dry. No rash. HEENT wears glasses. Has hearing aids. Neck is supple without lymph node or thyroid enlargement. Heart regular heart sounds with 2/6 systolic murmur Lungs are clear Abdomen is soft nontender without organomegaly or masses Extremities he does have residual effusion of the right knee but there is no evidence of any redness. The tenderness has almost completely subsided. No edema. Laboratory tests: WBC count 7510, hemoglobin 11.4, hematocrit 35, platelet count 376,000 Sodium 142, potassium 3.9, chloride 105, CO2 27, BU and 9, creatinine 0.97, glucose 97, calcium 9.1. 2 additional blood cultures were drawn this morning and the results are pending Assessment: * Septic arthritis of the right knee. Cultures grew Enterococcus faecalis on 2 separate occasions * Bacteremia secondary to the same bacteria * Bioprosthetic aortic valve Plan: * Continue the same antibiotics * We will wait for the results of the cultures done today * If the cultures are negative then we can proceed with placement of a PICC line and plan for discharge. * Encouraged to continue working with physical and occupational therapy
[2017-04-14 20:25] VITALS: BP 165/80; PULSE 65
[2017-04-14 23:05] VITALS: BP 135/75; PULSE 69; TEMP 36.8; O2SAT 91
[2017-04-15] MEDS: GENTAMICIN INJ 80 MG in DEXTROSE 5% 100ML 100 ML IV SCH ×2 (00:39→12:28)
[2017-04-15] MEDS: KETOROLAC TROMETHAMINE 15 MG/ML VIAL IV. SCH ×2 (04:01→09:37)
[2017-04-15] MEDS: LEVOTHYROXINE 100 MCG TAB PO SCH (05:44)
[2017-04-15] MEDS: AMPICILLIN IV 2,000 MG in SODIUM CHLOR 0.9% AD-VAN 100ML 100 ML IV SCH ×6 (05:44→23:53)
[2017-04-15 06:53] LABS: BASO % 0.3 %; BASO ABS # 0.02 K/uL (0-0.2); COMPLETE YES; EOS % 3.6 %; HEMATOCRIT 34.7 % (42-52); IG% 0.4 %; LYMPH % 15.4 %; LYMPH ABS # 1.04 K/uL (1.2-3.4); MEAN CELL VOLUME 88.3 fL (80-100); MEAN CORPUSCULAR HEMOGLOBIN 29.3 pg (25-34); MEAN CORPUSCULAR HGB CONC 33.1 g/dl (32-36); MEAN PLATELET VOLUME 9.6 fL (7.4-10.4); NEUT % 71.3 %; PLATELET COUNT 423 K/uL (130-400); RED BLOOD COUNT 3.93 M/uL (4.7-6.1); WHITE BLOOD COUNT 6.76 K/uL (4.8-10.8)
[2017-04-15 07:32] LABS: BUN/CREATININE RATIO 9.4 (10-20); CALCIUM 9.1 mg/dl (8.5-10.1)
[2017-04-15 08:17] VITALS: BP 128/80; PULSE 66; TEMP 36.7; O2SAT 94
[2017-04-15 08:21] VITALS: O2SAT 94
[2017-04-15] MEDS: ASPIRIN 81 MG ECTAB PO SCH (08:26)
[2017-04-15] MEDS: METOPROLOL TARTRATE 25 MG TAB PO SCH ×2 (08:27→20:43)
[2017-04-15] MEDS: PANTOprazole SOD 40 MG TAB PO SCH (08:27)
[2017-04-15] MEDS: DONEPEZIL HCL 5 MG TAB PO SCH (08:27)
[2017-04-15] MEDS: HEPARIN SOD 5000 UNIT/0.5 ML CARP SQ SCH ×2 (08:29→20:56)
[2017-04-15 15:15] VITALS: BP 125/74; PULSE 74; TEMP 36.6; O2SAT 95
[2017-04-15 20:41] VITALS: BP 125/70; PULSE 77
[2017-04-15] MEDS: HYDROCODONE/ACETAMOPHEN 5/325MG TAB PO PRN (20:50)
--- NOTE | 2017-04-15 22:25 | Progress Note ---
Progress Note Date of Service Apr 15, 2017. Progress Note 87-year-old male admitted with septic arthritis of the right knee, bacteremia, bioprosthetic aortic valve. Multiple cultures had been done including 2 cultures of the right synovial fluid from the right knee done on 2 separate occasions. 4 blood cultures each two done on separate occasions. All cultures grew Enterococcus faecalis. On admission the patient was treated with IV vancomycin. Subsequently he was changed to a combination of ampicillin and gentamicin. Throughout this illness he remained afebrile, he never had any fever. During his hospitalization patient has been seen in cardiology consultation by Dr. Parmjit Harkins, orthopedic consultation by Dr. Benedicto Lion and Dr. Donald in infectious disease. Actually the patient has been seen by Dr. Donald"s physician accounts payable assistant. He denied any fever. No chills. No headache. No dizziness. No chest pain. No shortness of breath. No abdominal pain. No nausea no vomiting. No problem urinating. No back pain. He continues to have some right knee pain. Minimal. He has been undergoing physical and occupational therapies. EXAMINATION: He is well developed. No acute distress. Vital Signs : Blood [id number]/80, pulse 66, respiration 16, temperature 36.7, oxygen saturation 94% on room air. Skin is warm and dry. No rash HEENT he usually wears glasses. Decreased hearing. Neck is supple. Nontender. No adenopathy. No thyromegaly. No JVD. Heart regular heart sounds. 2/6 systolic murmur. Lungs are clear Abdomen is soft nontender. Extremities: Minimal effusion of the right knee. No redness. ASSESSMENT: * septic right knee. 2 separate cultures grew Enterococcus faecalis * Bacteremia secondary to Enterococcus faecalis * Prosthetic aortic valve. The evaluation carried out by Dr. Harkins showed no evidence of valve involvement with this infection. * Dementia PLAN: * I am waiting for the results of the 2 blood cultures which were done on 2016. If they are negative then we will proceed with placement of a PICC line * We are working on discharge planning. [facility] was contacted. Will accept the patient if he is still on ampicillin and gentamicin. The plan was to eventually change the antibiotic to a different medication that could be administered once every 24 hours. Depending on the choice that when affect the possibility of him being accepted at [facility].depending on the antibiotic chosen it would affect whether he is still accepted at [facility] or not * The patient would like us to explore [facility]. * continuing with his therapies
[2017-04-15 23:11] VITALS: BP 133/73; PULSE 70; TEMP 36.8; O2SAT 90
[2017-04-16] VITALS (7 sets, daily range): BP systolic 98–151; BP diastolic 62–83; PULSE 62–74; TEMP 36–36.8; O2SAT 90–95
[2017-04-16] MEDS: GENTAMICIN INJ 80 MG in DEXTROSE 5% 100ML 100 ML IV SCH ×2 (00:52→12:32)
[2017-04-16] MEDS: HYDROCODONE/ACETAMOPHEN 5/325MG TAB PO PRN ×2 (04:22→20:39)
[2017-04-16] MEDS: AMPICILLIN IV 2,000 MG in SODIUM CHLOR 0.9% AD-VAN 100ML 100 ML IV SCH ×4 (06:17→21:27)
[2017-04-16] MEDS: LEVOTHYROXINE 100 MCG TAB PO SCH (06:17)
[2017-04-16 06:39] LABS: CREATININE 1.2 mg/dl (0.60-1.40)
[2017-04-16] MEDS: DONEPEZIL HCL 5 MG TAB PO SCH (08:46)
[2017-04-16] MEDS: ASPIRIN 81 MG ECTAB PO SCH (08:46)
[2017-04-16] MEDS: PANTOprazole SOD 40 MG TAB PO SCH (08:47)
[2017-04-16] MEDS: METOPROLOL TARTRATE 25 MG TAB PO SCH ×2 (08:47→21:28)
[2017-04-16] MEDS: HEPARIN SOD 5000 UNIT/0.5 ML CARP SQ SCH ×2 (08:48→21:26)
--- NOTE | 2017-04-16 10:22 | Infectious Disease Progress Nt ---
Progress Note Date of Service Apr 16, 2017. Subjective Pt evaluation today including: conversation w/ patient, physical exam, chart review, lab review, review of studies, conversation w/ employment consultant, review of inpatient medication list Patient offering no new specific complaints today. Pain in right leg slowly decreasing. Remains afebrile. Tolerating antibiotics without apparent difficulty. Follow-up blood cultures remain no growth to date. All Other Systems: Reviewed and Negative Medications Current Inpatient Medications Medications (Trade) Dose Ordered Sig/Ani Route Start Time Stop Time Status Last Admin Dose Admin Heparin Sodium (Porcine) (Heparin Sq 5000 Unit/0.5ml) 5,000 unit Q12 SQ 04/09/17 13:16 05/09/17 13:15 04/15/17 20:56 5,000 UNIT Acetaminophen (Tylenol Tab) 500 mg Q4H PRN PO 04/09/17 12:00 05/09/17 11:59 Acetaminophen/ Hydrocodone Bitart ([place] 5/325 Tab) 1 tab Q4H PRN PO 04/09/17 12:00 04/23/17 11:59 04/16/17 04:22 1 TAB Aspirin (Ecotrin Tab) 81 mg DAILY PO 04/10/17 09:00 05/10/17 08:59 04/16/17 08:46 81 MG Levothyroxine Sodium (Synthroid Tab) 100 mcg DAILYBB PO 04/10/17 06:00 05/10/17 05:59 04/16/17 06:17 100 MCG Metoprolol Tartrate (Lopressor Tab) 12.5 mg BID PO 04/09/17 21:00 05/09/17 20:59 04/16/17 08:47 12.5 MG Pantoprazole Sodium (Protonix Tab) 40 mg QAM PO 04/10/17 09:00 05/10/17 08:59 04/16/17 08:47 40 MG Donepezil HCl (Aricept Tab) 5 mg QAM PO 04/10/17 09:00 05/10/17 08:59 04/16/17 08:46 5 MG Ampicillin Sodium 2000 mg/Sodium Chloride 100 ml @ 200 mls/hr Q6H IV 04/11/17 12:00 05/23/17 11:59 04/16/17 06:17 200 MLS/HR Miscellaneous Information 1 ea UD PRN N/A 04/11/17 12:15 05/11/17 12:14 Gentamicin Sulfate (Consult) 1 ea UD PRN N/A 04/11/17 12:15 05/11/17 12:14 Gentamicin Sulfate 80 mg/ Dextrose 102 ml @ 100 mls/hr Q12@0000,1200 IV 04/11/17 13:00 05/23/17 12:59 04/16/17 00:52 100 MLS/HR Objective Vital Signs Date Time Temp Pulse Resp B/P (MAP) Pulse Ox O2 Delivery O2 Flow Rate FiO2 04/16/17 07:47 90 Room Air 04/16/17 07:44 36.0 70 14 128/76 (93) 90 Room Air 04/16/17 06:46 36.7 65 16 151/83 (105) 93 Room Air 04/15/17 23:50 Room Air 04/15/17 23:11 36.8 70 14 133/73 (93) 90 Room Air 04/15/17 20:41 77 125/70 (88) 04/15/17 15:20 Room Air 04/15/17 15:15 36.6 74 16 125/74 (91) 95 Room Air Physical Exam General Appearance: WD/WN, no apparent distress Eyes: normal inspection, EOMI, sclerae normal ENT: normal ENT inspection, pharynx normal Neck: supple, no adenopathy, trachea midline Respiratory/Chest: chest non-tender, lungs clear, normal breath sounds, no respiratory distress Cardiovascular: regular rate, rhythm, no gallop, + systolic murmur Abdomen: normal bowel sounds, non tender, soft, no organomegaly Extremities: no calf tenderness, + pertinent finding (Or minimal right knee swelling) Neurologic/Psychiatric: alert, oriented x 3 Skin: normal color, no rash Lymphatic: no adenopathy Laboratory Results RUN DATE: 04/16/17 [facility] PAGE 1 RUN TIME: 0830 Specimen Inquiry PATIENT: Say NAYAK LOC: ANY U # : [id number] AGE/SX: 87/M ROOM: [facility] REG : 04/09/[address]: Goldy Vasquez M. : 1930 BED: 2 DIS : STATUS: ADM IN TLOC: SPEC #: [id number] LUCHO: 04/14/17-7 STATUS: RES REQ #: [id number] RECD: 04/14/17-6 [facility] DR: Sachi Key , [place] SOURCE: BLOOD ENTR: 04/14/17-[address] [facility] [address]: Goldy Vasquez M.D. SPDESC: Sathish Donald MD, James J., Benedicto Granger DO ORDERED: BLOOD CULTURE Procedure Result Verified Site BLD CULT Preliminary 04/16/17-829 NO GROWTH TO DATE. Last 24 Hours Test 04/16/17 05:40 Creatinine 1.20 mg/dl Est Creatinine Clear Calc Drug Dose 39.9 ml/min Estimated GFR () 63.1 Estimated GFR (Non- 54.4 Assessment and Plan Patient with Enterococcal bacteremia, possible septic versus seeded right knee with pansensitive E. Faecalis, & hx of AVR. He is currently on IV Ampicillin and Gentamicin. Blood cultures of appear to have cleared. Patient will require prolonged IV antibiotics in the range of 4-6 weeks. Ideally optimum treatment would be his current therapy, but if once daily antibiotic necessary, would recommend the use of daptomycin. We will continue to monitor renal function and Gent levels.
--- NOTE | 2017-04-16 18:04 | Progress Note ---
Progress Note Date of Service Apr 16, 2017. Progress Note 87-year-old male admitted with: * Septic right knee. 2 cultures grew Enterococcus faecalis * Bacteremia secondary to Enterococcus faecalis. A total of 4 blood cultures * Prosthetic aortic valve * Osteoarthritis * Chondrocalcinosis Patient was admitted. He was started on IV vancomycin. He was seen in orthopedic consultation by Dr. Benedicto Lion. He was also seen in cardiology consultation by Dr. Parmjit Harkins. Infectious disease consultation was also requested. There has been no apparent or detected involvement of his bioprosthetic aortic valve. His condition has improved. He had not had any fever or any chills. He remains afebrile. He denied any headache or dizziness or lightheadedness. No chest pain no shortness of breath. No abdominal pain. No nausea no vomiting. He is tolerating his diet. Having bowel movements. No problem urinating. All the redness and swelling and pain in his right knee have pre-much resolved. EXAMINATION: No distress or discomfort Vital signs: Blood pressure 128/76, pulse 70, respiration 14, temperature 36, oxygen saturation 90% on room air. Skin is warm and dry. No rash. HEENT no mucosal abnormality Neck is supple. No lymph node or thyroid enlargement. No JVD. Heart regular heart sounds with 2/6 systolic murmur. Lungs are clear. Abdomen is soft nontender without organomegaly or masses. Back no spinal tenderness. Extremities no edema clubbing or cyanosis. The swelling and erythema and effusion of his right knee have resolved. LABORATORY TESTS: Creatinine 1.2. ASSESSMENT: * Septic arthritis right knee * Bacteremia * Prosthetic aortic valve. Bioprosthesis * Osteoarthritis * Chondrocalcinosis * Dementia PLAN: * Continuing the same medications. We will continue ampicillin and gentamicin. * Arrangements are being made for him to go to [facility]. They are finalized. For now patient will be continued on ampicillin and gentamicin and we will continue with the 2 antibiotics while he is at [facility]. When he is ready to be discharged from the [facility] after his rehabilitation we will change his antibiotic to daptomycin so it can be administered once every 24 hours. Those arrangements would be made for him to calm to the medical treatment unit. * PICC line will be placed tonight. Consent was signed * The family is planning on transporting him to [facility] tomorrow.
--- NOTE | 2017-04-16 20:51 | DIAGNOSTIC IMAGING REPORT ---
CHEST ONE VIEW PORTABLE CLINICAL HISTORY: PICC PLACEMENT LEFT UPPER ARM (VPS unavailable) tube position COMPARISON STUDY: 04/10/2017 FINDINGS: Left-sided PICC catheter placed. Tube position is in the left jugular vein. This should be pulled back and repositioned. No evidence pneumothorax. IMPRESSION: Left PICC catheter place in the left jugular vein. This should be pulled back and repositioned. No evidence pneumothorax. The above report was generated using voice recognition software. It may contain grammatical, syntax or spelling errors. Electronically signed by: Demetrius Craft M.D. 04/16/2017 8:49 PM Dictated Date/Time: 04/16/2017 8:48 PM
[2017-04-16] MEDS ORDERED: NURSING VERBAL MED ORDER ONE (21:15)
[2017-04-17] MEDS: GENTAMICIN INJ 80 MG in DEXTROSE 5% 100ML 100 ML IV SCH ×2 (00:08→11:45)
[2017-04-17] MEDS: AMPICILLIN IV 2,000 MG in SODIUM CHLOR 0.9% AD-VAN 100ML 100 ML IV SCH ×2 (03:38→10:28)
[2017-04-17] MEDS: HYDROCODONE/ACETAMOPHEN 5/325MG TAB PO PRN ×2 (03:46→12:38)
[2017-04-17] MEDS: LEVOTHYROXINE 100 MCG TAB PO SCH (05:42)
[2017-04-17 06:34] LABS: CREATININE 1.2 mg/dl (0.60-1.40)
[2017-04-17 07:22] VITALS: BP 151/75; PULSE 66; TEMP 36.7; O2SAT 92
[2017-04-17] MEDS ORDERED: LPR25 PO (07:38)
[2017-04-17] MEDS ORDERED: ASPI81TA28 PO (07:38)
[2017-04-17] MEDS ORDERED: [UNRECOGNIZED DRUG - CODE] IV (07:38)
[2017-04-17] MEDS ORDERED: [UNRECOGNIZED DRUG - CODE] IV (07:38)
[2017-04-17] MEDS ORDERED: DONE1TAB26 PO (07:38)
[2017-04-17] MEDS ORDERED: ACET-24 PO (07:38)
--- NOTE | 2017-04-17 07:48 | Discharge Instructions ---
Discharge Instructions Date of Service Apr 17, 2017. Admission Reason for Admission: Septic arthritis right knee secondary to Enterococcus faecalis Bacteremia secondary to Enterococcus faecalis Bioprosthetic aortic valve Dementia Osteoarthritis Chondrocalcinosis Discharge Discharge Diagnosis / Problem: septic right knee, bacteremia, prosthetic aortic valve, dementia, Discharge Goals Goal(s): Decrease discomfort, Improve function, Increase independence, Improve disease control Activity Recommendations Activity Level: Assistance Required Therapies: Physical Therapy, Occupational Therapy . Additional Information Patient informed of condition: Yes Advance Directives: No DNR: No Level of Care: Acute Rehab Communicable Disease: No Prognosis: Improving Craig Catheter: No Instructions / Follow-Up Instructions / Follow-Up Patient needs to be on IV antibiotics until 05/21/2017. He is currently on IV ampicillin and gentamicin. When he is ready to be discharged home his antibiotic will be changed to daptomycin so it could be administered once every 24 hours and arrangements need to be made for the patient to be seen in the medical treatment unit every day for his IV daptomycin Please scheduled follow-up with Dr. Donald in infectious disease Please schedule cardiology follow-up with Dr. Schaefer with the [facility] medical group I will see the patient once he is discharged from Center Patient has a PICC line in place Current Hospital Diet Patient's current hospital diet: Regular Diet Discharge Diet Recommended Diet: Regular Diet Pending Studies Studies pending at discharge: no Medical Emergencies . Who to Call and When: Medical Emergencies: If at any time you feel your situation is an emergency, please call 911 immediately. . Non-Emergent Contact Non-Emergency issues call your: Primary Care Provider . . "Provider Documentation" section prepared by Goldy Shay. . Core Measure Problem Core Measures: None
[2017-04-17 08:14] VITALS: O2SAT 92
[2017-04-17 08:22] VITALS: BP 151/75; PULSE 66; TEMP 36.7; O2SAT 92
[2017-04-17 09:03] VITALS: BP 109/65; PULSE 82
[2017-04-17 10:18] VITALS: BP 122/71; PULSE 75
[2017-04-17] MEDS: DONEPEZIL HCL 5 MG TAB PO SCH (10:19)
[2017-04-17] MEDS: ASPIRIN 81 MG ECTAB PO SCH (10:20)
[2017-04-17] MEDS: METOPROLOL TARTRATE 25 MG TAB PO SCH (10:20)
[2017-04-17] MEDS: PANTOprazole SOD 40 MG TAB PO SCH (10:20)
[2017-04-17] MEDS: HEPARIN SOD 5000 UNIT/0.5 ML CARP SQ SCH (10:23)
--- NOTE | 2017-04-17 22:06 | Progress Note ---
Progress Note Date of Service Apr 17, 2017. Progress Note 87-year-old male admitted with: * septic right knee. 2 cultures grew Enterococcus faecalis * Bacteremia secondary to Enterococcus faecalis. * Bioprosthetic aortic valve * Dementia * Osteoarthritis * Chondrocalcinosis Patient was admitted. He was started on IV vancomycin. Subsequently his antibiotic was changed to gentamicin and ampicillin. Patient remained afebrile a period his WBC count remained normal. The swelling and effusion and pain and redness in his right knee gradually subsided. The last blood cultures done on were negative. A PICC line was placed yesterday in his right upper arm. He is doing well. Denied any headaches. No dizziness no lightheadedness. No sore throat. No neck pain. No chest pain. No shortness of breath. Improved appetite. No abdominal pain. No nausea no vomiting. No problem with his bowel movements. No problem urinating. No pain in his back or extremities. During his hospitalization he was seen in consultation by Dr. Benedicto Lion in orthopedic surgery, Dr. Donald in infectious disease, and Dr. Parmjit Harkins in cardiology. EXAMINATION: GENERAL : Well developed. Well nourished. No acute distress. VITAL SIGNS ; Blood Pressure : 151/75, pulse 66, respiration 19, temperature 36.7, oxygen saturation 92% on room air. SKIN : Warm and dry. No rash. HEENT :He usually wears glasses. Decreased hearing. Has hearing aids. NECK : Supple. No adenopathy. No thyromegaly. No JVD. Normal carotid pulses. HEART: Regular heart tones with 2/6 systolic murmur. No rub no gallop. LUNGS: Clear. Normal breath sounds. ABDOMEN: Soft nontender. No organomegaly or masses. BACK: No spine or CVA tenderness. EXTREMITIES: The swelling and redness and effusion all resolved. ASSESSMENT: * septic arthritis right knee secondary to Enterococcus faecalis * Bacteremia secondary to Enterococcus faecalis * Bioprosthetic aortic valve * Dementia * Osteoarthritis * Chondrocalcinosis * Enlargement of the prostate PLAN: * continuing the same medication * A PICC line was placed yesterday * Arrangements were completed for him to go to [facility] for rehabilitation * The plan is for him to be continued on ampicillin and gentamicin during his stay at [facility]. When he is discharged he will be changed to daptomycin to complete the course of his antibiotics onto May 21, 2017. * Physical and occupational therapies at [facility] * Continue monitor renal function and gentamicin level * Cardiology followup to be scheduled * Infectious disease followup to be scheduled * I will see him in the office after his discharge from [facility]
--- NOTE | 2017-04-27 19:52 | Discharge Summary ---
Discharge Summary Date of Service Apr 27, 2017. Discharge Summary ADMISSION DATE: 04/09/2017 DISCHARGE DATE: 04/17/2017 DISCHARGE DIAGNOSES: * septic arthritis right knee secondary to Enterococcus faecalis * Bacteremia secondary to Enterococcus faecalis * Bioprosthetic aortic valve * Osteoarthritis * Chondrocalcinosis * Dementia * Hypothyroidism * Dyspepsia DISCHARGE MEDICATIONS: * acetaminophen 500 mg every 4 hours as needed for fever * Ampicillin 2 g IV every 6 hours for 33 days * Gentamicin 80 mg IV every 12 hours for 33 days * Aspirin 81 mg daily * Aricept 10 mg daily * Furosemide 20 mg 3 times a week on Friday and Friday * Levothyroxine 100 mcg daily * Metoprolol tartrate 25 mg twice a day * Pantoprazole 40 mg daily * Potassium chloride 10 mEq 3 times a week. CONSULTATIONS : * Dr. Parmjit Harkins in cardiology * Dr. Benedicto Lion in orthopedic surgery * Dr. Sathish Donald in infectious disease 87-year-old male admitted with septic right knee with a culture growing enterococcus faecalis. Patient with multiple medical problems including bioprosthetic aortic valve for severe aortic stenosis, dementia, hypothyroidism, history of acute upper GI bleed associated with pneumomediastinum and pneumoperitoneum in 2014. On 03/31/2017 his called the office stating that 4 days prior to that he was putting his shoes on and twisted his right knee. It was painful. He had no swelling at that time. He took Tylenol and I applied ice. He had an x-ray done of the right knee. There was evidence of osteoarthritis and chondrocalcinosis. He continued to have severe pain in the right knee. I did see him in the office. Prior to that he was seen by Dr. Benedicto Lion. He had a steroid injection in his knee on the prior to his admission. He continued to have severe pain. I saw him in the office on 04/07/2017. He had evidence of effusion of the right knee. The knee was inflamed. Arthrocentesis was done. Fluid was sent for culture. Also for crystal study. Cell count was also done. He had chondrocalcinosis crystals. WBC count in the fluid was 21,111. Culture grew gram-positive cocci. Patient was contacted. I spoke with Dr. Lion. Arrangements were made for admission. PAST MEDICAL HISTORY, SOCIAL HISTORY, FAMILY HISTORY: As noted on admission history and physical ALLERGIES: NONE ADMISSION MEDICATIONS: As noted on the home medication list PHYSICAL EXAMINATION AND LABORATORY TESTS ARE NOTED ON ADMISSION HITORY AND PHYSICAL HOSPITAL COURSE: Patient was admitted to a medical/surgical /surgical bed. Resuscitation level I. Blood cultures were done. He was started on IV vancomycin. He was continued on his oral medications. Orthopedic consultation was requested. Patient was seen by Dr. Lion. He repeated the arthrocentesis of the right knee. Same studies were sent again. The concern was about the fact that patient does have a bioprosthetic aortic valve. Cardiology consultation was requested. An echocardiogram was done. The images were not clear with the first study. Dr. Parmjit Harkins repeated the echocardiogram and he did not notice any evidence of any vegetations or any valve involvement. Given the prior history of pneumomediastinum he did not feel that the patient needed a TRINI done. The bacteria from his knee was identified as Enterococcus faecalis. His blood cultures also grew Enterococcus faecalis. Culture from the repeat arthrocentesis grew the same bacteria. Infectious disease consultation was requested. 2 additional blood cultures were done. He was changed to a combination of ampicillin and gentamicin. The 2 additional blood cultures did eventually grow Enterococcus faecalis. Patient remained afebrile. His WBC count remained normal. The swelling and the inflammatory changes in his right knee subsided. Physical and occupational therapies were ordered. He was ambulating. His condition improved. His appetite improved. 2 additional blood cultures were done and they were negative for any growth. At that point a PICC line was placed. Patient needed therapy. The patient and the family agreed to go to [facility]. Arrangements were completed. The plan was to continue with ampicillin and gentamicin. Patient needed 6 weeks of IV antibiotic therapy. Depending on when he leaves [facility] there is a possibility that we could change his antibiotics to daptomycin so it could be administered only once every 24 hours and we could make arrangements for that to be administered in the medical treatment unit at the hospital.
== END 2017-04-17 14:46 | DRG 549 ==
LOC: C.MSW 11:43
PROVIDERS: ADMIT Internal Medicine; ATTEND Internal Medicine
PROC: 0S9C3ZX Drainage of Right Knee Joint, Percutaneous Approach, Diagnostic (ICD-10-PCS; principal; 2017-04-09)
PROC: 02HV33Z Insertion of Infusion Device into Superior Vena Cava, Percutaneous Approach (ICD-10-PCS; 2017-04-17)
DX: M00.861 Arthritis due to other bacteria, right knee (principal); Q60.0 Renal agenesis, unilateral; B95.2 Enterococcus as the cause of diseases classified elsewhere; M25.461 Effusion, right knee; M11.261 Other chondrocalcinosis, right knee; R35.0 Frequency of micturition; I05.9 Rheumatic mitral valve disease, unspecified; E03.9 Hypothyroidism, unspecified; K21.9 Gastro-esophageal reflux disease without esophagitis; F03.90 Unspecified dementia, unspecified severity, without behavioral disturbance, psychotic disturbance, mood disturbance, and anxiety; Z95.3 Presence of xenogenic heart valve; Z95.828 Presence of other vascular implants and grafts; Z87.891 Personal history of nicotine dependence; Z87.19 Personal history of other diseases of the digestive system; Z86.718 Personal history of other venous thrombosis and embolism; Z79.82 Long term (current) use of aspirin; Z79.891 Long term (current) use of opiate analgesic; Z79.899 Other long term (current) drug therapy; I82.441 Acute embolism and thrombosis of right tibial vein; M17.11 Unilateral primary osteoarthritis, right knee; I35.8 Other nonrheumatic aortic valve disorders; I10 Essential (primary) hypertension; Z95.2 Presence of prosthetic heart valve

== ENCOUNTER 2020-12-15 17:34 | Inpatient (IN) ==
[~2020-12-15 17:34] MED LIST changes: -ASPI81TA28 PO; -DONE1TAB26 PO; -FURO-85 PO; -LEVO100T7 PO; -LPR25 PO; -PANT40TA PO; +PIPERACILLIN/TAZOBACTAM 4.5 GM in DEXTROSE 5% 100 ML IV ONE; -POTA-74 PO; -TRAM-453 PO
[2020-12-15] MEDS ORDERED: ALBUT/IPRATROP 3MG/0.5MG NEB 3 ML VIAL NEB STA (17:55)
[2020-12-15] MEDS ORDERED: CEFEPIME 2,000 MG/20 ML VIAL IV STA (17:55)
[2020-12-15] MEDS ORDERED: dexAMETHasone**PF** 10 MG/ML VIAL IV ONE (17:55)
--- NOTE | 2020-12-15 18:03 | Emergency Department Note ---
Impression & Plan Acute respiratory distress, Pneumonia, Hypoxia, CHF (congestive heart failure), COVID-19 ED Provider Note NAME: Say NAYAK AGE: 89 SEX: M : 1930 ARRIVES VIA: Walk-In INFORMANT: [Patient][nursing] ED PROVIDER(S): [John Todd MD] CHIEF COMPLAINT: Short of breath HISTORY OF PRESENT ILLNESS: The patient is an 89-year-old male who has had dyspnea for over a month. His breathing is worse with any exertion. He states he felt poorly ever since his second Covid vaccine. The patient states that he has seen his doctor for his trouble, he is currently on an antibiotic but is not improving. As per the triage staff, the patient's O2 saturation was in the high 60s in the triage bay. He seemed quite tachypneic and was struggling to get his air. He was rapidly brought back to the room and I was called to see him emergently. Patient is feeling better now that he is on a facemask O2. He denies any current chest pain. He does state sometimes with coughing it hurts the chest though. He states he just is not getting better with his doctors prescribed antibiotics. Patient has not been vomiting, no diarrhea. He did note some increasing weakness and actually fell yesterday because of the weakness, no real injury, he did not strike his head. He denies blood thinner use. REVIEW OF SYSTEMS: See HPI for pertinent positives and negatives. A total of ten systems were reviewed and were otherwise negative. PMHx/PSHx: See Below SOCIAL HISTORY: See Below. PHYSICAL EXAM: GENERAL: Patient is in moderate respiratory distress. HEENT: No acute trauma, normocephalic atraumatic, mucous membranes moist, no nasal congestion, no scleral icterus. NECK: No stridor, no adenopathy, no meningismus, trachea is midline. LUNGS: Rales at both bases but primarily on the left. No wheezing, there is an increased respiratory rate. He is in some moderate respiratory distress. HEART: Without murmurs gallops or rubs, regular rate and rhythm. Heart sounds are difficult to hear because of his overriding lung sounds. ABDOMEN: Soft, nontender, bowel sounds positive, no hernias, no peritonitis. EXTREMITIES: No cyanosis or edema, full range of motion of all the joints without pain or difficulty, no signs for acute trauma. NEUROLOGIC: Oriented x 3, no acute motor or sensory deficits, no focal weakness. SKIN: No rash, no jaundice, no diaphoresis. DIFFERENTIAL DIAGNOSIS: Sepsis, UTI, pneumonia, metabolic abnormality, COVID-19, influenza, CHF, failed outpatient treatment, electrolyte abnormalities, cardiac sources, cellulitis, UTI, bacteremia, intracerebral event, toxicologic etiology, neurologic event, as well as other pathologies. EMERGENCY DEPARTMENT COURSE/PROCEDURES: ECG: Indication was shortness of breath. The ECG shows a normal sinus rhythm with a rate of 89. The QTc is 420. There is no ST elevation, no PVCs. Continuous Cardiac Monitoring: An order was placed for continuous cardiac monitoring. The monitor shows a rate of 79 with normal sinus rhythm. Critical Care Note: I have personally spent 48 minutes of critical care time in the direct management of this patient. This includes bedside care, interpretation of diagnostic studies, and testing, discussion with consultants, patient, and family members, and other required patient management activities. This 48 minutes is in excess of all separately billable procedures. MEDICAL DECISION MAKING: There is a moderate leukocytosis at 15,000, this could be consistent with infection or just the stress of his situation. There is no anemia. There is a normal platelet count. No coagulopathy. No significant electrolyte abnormality or kidney failure. Lactic acid level was elevated at over 4, I suspect this elevation is from his hypoxia primarily. There were a few liver enzyme elevations however, the bilirubin was normal. Procalcitonin level was quite elevated. ECG showed a normal sinus rhythm, no acute ischemia. Cardiac enzyme testing x1 was not consistent with acute cardiac injury. BNP was not elevated. Chest film shows what appears to be CHF, there was no focal pneumonia, no pneumothorax. Chest CT shows a diffuse viral pneumonia. There was no PE. Urinalysis does not show infection. Influenza testing was negative. Covid testing was positive. The patient was aggressively managed. He was placed on facemask O2 however, his oxygen level was still low. He was placed on BiPAP with improvement. He was given a DuoNeb, IV Decadron. He received IV cefepime as empiric antibiotic coverage. The patient was not given excessive amounts of fluid. As a Covid patient, excessive fluid is contraindicated. Patient did appear to be fluid overloaded by chest x-ray and had rales on exam. He was given IV Lasix and Nitropaste. The patient does seem to be improving. He is in need of a hospital stay. I spoke to his about the seriousness of his condition. The case management team has been involved. The on-call hospitalist was consulted. The patient is aware of his findings thus far. Past Med/Surg History Medical History CVA (cerebral vascular accident) DVT (deep venous thrombosis) Upper GI bleed Social History Smoking Status: Never smoker Preferred Language: Honduran Communication Ability: Impaired Communication Ability Comment: [facility] Tool Room Attendant Required: No Beliefs That Will Affect Care: None Current Living Situation: Spouse Other Information That Helps Us Care for You: No Feels Safe at Home: Yes Safety Concerns: Feels Safe At This Time Assistive Devices: Cane, Denture - Upper, Glasses, Hearing Aid - Bilateral and Walker Allergies Allergies Allergy/AdvReac Type Severity Reaction Status Date / Time No Known Allergies Allergy Verified 12/15/20 19:36 Home Meds Home Medications Medication Instructions Recorded Confirmed acetaminophen 500 mg PO Q4H 12/15/20 12/15/20 amoxicillin 500 mg PO BID 12/15/20 12/15/20 aspirin [Aspirin Low Dose] 81 mg PO QPM 12/15/20 12/15/20 benzonatate 100 mg PO Q6H 12/15/20 12/15/20 carbidopa-levodopa 1 tab PO TID 12/15/20 12/15/20 donepezil 10 mg PO QAM 12/15/20 12/15/20 levothyroxine 100 mcg PO QAM 12/15/20 12/15/20 metoprolol tartrate 12.5 mg PO BID 12/15/20 12/15/20 pantoprazole 40 mg PO QAM 12/15/20 12/15/20 potassium chloride 10 meq PO QAM 12/15/20 12/15/20 Results & Data (ED) Vital Signs Vital Signs - 24 hr 12/15/20 17:40 12/15/20 17:57 12/15/20 18:00 Temperature 36.8 C Temperature Source Temporal Artery Scan Pulse Rate 93 H 90 87 Pulse Rate [Apical] Pulse Rate from SpO2 Sensor 88 88 Respiratory Rate 28 H 22 31 H Respiratory Effort / Characteristics Respiratory Pattern Blood Pressure 147/96 H Blood Pressure Mean 113 Pulse Oximetry 68 L 83 L 82 L Oxygen Delivery Method Room Air Oxygen Flow Rate Fraction of Inspired Oxygen Sepsis Recent Fever Within 48 Hours No Sepsis New/Unexplained Change in Mental Status N/A Sepsis Action Taken by Nursing No Action Required 12/15/20 18:08 12/15/20 18:10 12/15/20 18:23 Temperature Temperature Source Pulse Rate 90 Pulse Rate [Apical] 87 Pulse Rate from SpO2 Sensor Respiratory Rate 25 H 37 H Respiratory Effort / Characteristics Spontaneous Spontaneous Labored Short of Breath Respiratory Pattern Tachypnea Blood Pressure Blood Pressure Mean Pulse Oximetry 83 L 86 L 96 Oxygen Delivery Method Oxymask Oxymask Oxygen Flow Rate 15 Fraction of Inspired Oxygen 50 Sepsis Recent Fever Within 48 Hours Sepsis New/Unexplained Change in Mental Status Sepsis Action Taken by Nursing 12/15/20 18:30 12/15/20 18:36 12/15/20 19:01 Temperature Temperature Source Pulse Rate 95 H 101 H 102 H Pulse Rate [Apical] Pulse Rate from SpO2 Sensor 96 H 100 H 102 H Respiratory Rate 36 H 32 H 41 H Respiratory Effort / Characteristics Respiratory Pattern Blood Pressure 126/78 146/81 H Blood Pressure Mean 94 102 Pulse Oximetry 96 94 94 Oxygen Delivery Method BiPAP CPAP Oxygen Flow Rate Fraction of Inspired Oxygen 50 50 Sepsis Recent Fever Within 48 Hours Sepsis New/Unexplained Change in Mental Status Sepsis Action Taken by Nursing 12/15/20 19:30 12/15/20 20:00 Temperature Temperature Source Pulse Rate 100 H 108 H Pulse Rate [Apical] Pulse Rate from SpO2 Sensor 101 H 104 H Respiratory Rate 39 H 40 H Respiratory Effort / Characteristics Respiratory Pattern Blood Pressure 154/74 H 161/86 H Blood Pressure Mean 100 111 Pulse Oximetry 94 94 Oxygen Delivery Method CPAP CPAP Oxygen Flow Rate Fraction of Inspired Oxygen 50 50 Sepsis Recent Fever Within 48 Hours Sepsis New/Unexplained Change in Mental Status Sepsis Action Taken by Long-Term Medications Current Medication List: was personally reviewed by me Laboratory Data Attestation: I reviewed the patient's lab results. Result diagrams: 12/15/20 18:04 12/15/20 18:04 Lab Results 12/15/20 12/15/20 12/15/20 Range/Units 18:04 18:04 18:04 WBC 15.16 H (4.8-10.8) K/uL RBC 4.80 (4.7-6.1) M/uL Hgb 14.9 (14.0-18.0) g/dL Hct 42.8 (42-52) % MCV 89.2 (80-100) fL MCH 31.0 (25-34) pg MCHC 34.8 (32-36) g/dL RDW Std Deviation 44.9 (36.4-46.3) fL RDW Coeff of Colin 13.6 (11.5-14.5) % Plt Count 301 (130-400) K/uL MPV 10.8 H (7.4-10.4) fL Immature Gran % (Auto) 0.5 % Neut % (Auto) 89.4 % Lymph % (Auto) 7.0 % Ada % (Auto) 2.4 % Eos % (Auto) 0.5 % Baso % (Auto) 0.2 % Neut # (Auto) 13.55 H (1.4-6.5) K/uL Lymph # (Auto) 1.06 L (1.2-3.4) K/uL Ada # (Auto) 0.37 (0.11-0.59) K/uL Eos # (Auto) 0.08 (0-0.5) K/uL Baso # (Auto) 0.03 (0-0.2) K/uL Immature Gran # (Auto) 0.07 H (0.00-0.02) K/uL PT (9.0-12.0) Seconds INR (0.9-1.1) APTT (21.0-31.0) Seconds PTT Ratio Sodium 135 L (136-145) mmol/L Potassium 3.6 (3.5-5.1) mmol/L Chloride 104 (98-107) mmol/L Carbon Dioxide 20 L (21-32) mmol/L Anion Gap 11.0 (3-11) BUN 26 H (7-18) mg/dl Creatinine 1.32 (0.6-1.4) mg/dl Est Cr Clr Drug Dosing 31.8 ml/min Est GFR ( Amer) 55.0 Est GFR (Non-Af Amer) 47.5 BUN/Creatinine Ratio 19.5 (10-20) Glucose 109 H (70-99) mg/dl Lactate (0.4-2.0) mmol/L Calcium 9.5 (8.5-10.1) mg/dl Magnesium 2.1 (1.8-2.4) mg/dl Total Bilirubin 0.6 (0.2-1) mg/dl AST 121 H (15-37) U/L ALT 74 (12-78) U/L Alkaline Phosphatase 119 H (45-117) U/L Troponin I < 0.015 (0-0.045) ng/ml NT-Pro-B Natriuret Pep 1200 (0-1800) pg/ml Total Protein 7.2 (6.4-8.2) gm/dl Albumin 2.8 L (3.4-5.0) gm/dl Globulin 4.4 H (2.5-4.0) gm/dl Albumin/Globulin Ratio 0.6 L (0.9-2) Procalcitonin > 200.00 H (0-0.5) ng/ml Specimen Hemolysis Urine Color Urine Appearance (Clear) Urine pH (4.5-7.5) Ur Specific [place] (1.000-1.030) Urine Protein (Negative) Urine Glucose (UA) (Negative) Urine Ketones (Negative) Urine Blood (Negative) Urine Nitrite (Negative) Urine Bilirubin (Negative) Urine Urobilinogen (Negative) Ur Leukocyte Esterase (Negative) Urine WBC (Auto) (0-5) /hpf Urine RBC (Auto) (0-4) /hpf U Hyaline Cast (Auto) (0-5) /lpf U Epithel Cells (Auto) (0-5) /lpf Urine Bacteria (Auto) (Negative) COVID-19 Eval Order SARS-CoV-2 (PCR) (Negative) Influenza Type A (PCR) (Neg) Influenza Type B (PCR) (Neg) RSV (RT-PCR) (Neg) 12/15/20 12/15/20 12/15/20 Range/Units 18:04 18:04 18:08 WBC (4.8-10.8) K/uL RBC (4.7-6.1) M/uL Hgb (14.0-18.0) g/dL Hct (42-52) % MCV (80-100) fL MCH (25-34) pg MCHC (32-36) g/dL RDW Std Deviation (36.4-46.3) fL RDW Coeff of Colin (11.5-14.5) % Plt Count (130-400) K/uL MPV (7.4-10.4) fL Immature Gran % (Auto) % Neut % (Auto) % Lymph % (Auto) % Ada % (Auto) % Eos % (Auto) % Baso % (Auto) % Neut # (Auto) (1.4-6.5) K/uL Lymph # (Auto) (1.2-3.4) K/uL Ada # (Auto) (0.11-0.59) K/uL Eos # (Auto) (0-0.5) K/uL Baso # (Auto) (0-0.2) K/uL Immature Gran # (Auto) (0.00-0.02) K/uL PT 12.1 H (9.0-12.0) Seconds INR 1.2 H (0.9-1.1) APTT 30.0 (21.0-31.0) Seconds PTT Ratio 1.1 Sodium (136-145) mmol/L Potassium (3.5-5.1) mmol/L Chloride (98-107) mmol/L Carbon Dioxide (21-32) mmol/L Anion Gap (3-11) BUN (7-18) mg/dl Creatinine (0.6-1.4) mg/dl Est Cr Clr Drug Dosing ml/min Est GFR ( Amer) Est GFR (Non-Af Amer) BUN/Creatinine Ratio (10-20) Glucose (70-99) mg/dl Lactate 4.6 H* (0.4-2.0) mmol/L Calcium (8.5-10.1) mg/dl Magnesium (1.8-2.4) mg/dl Total Bilirubin (0.2-1) mg/dl AST (15-37) U/L ALT (12-78) U/L Alkaline Phosphatase (45-117) U/L Troponin I (0-0.045) ng/ml NT-Pro-B Natriuret Pep (0-1800) pg/ml Total Protein (6.4-8.2) gm/dl Albumin (3.4-5.0) gm/dl Globulin (2.5-4.0) gm/dl Albumin/Globulin Ratio (0.9-2) Procalcitonin (0-0.5) ng/ml Specimen Hemolysis Urine Color Urine Appearance (Clear) Urine pH (4.5-7.5) Ur Specific [place] (1.000-1.030) Urine Protein (Negative) Urine Glucose (UA) (Negative) Urine Ketones (Negative) Urine Blood (Negative) Urine Nitrite (Negative) Urine Bilirubin (Negative) Urine Urobilinogen (Negative) Ur Leukocyte Esterase (Negative) Urine WBC (Auto) (0-5) /hpf Urine RBC (Auto) (0-4) /hpf U Hyaline Cast (Auto) (0-5) /lpf U Epithel Cells (Auto) (0-5) /lpf Urine Bacteria (Auto) (Negative) COVID-19 Eval Order [facility]Rsv at [facility] SARS-CoV-2 (PCR) (Negative) Influenza Type A (PCR) (Neg) Influenza Type B (PCR) (Neg) RSV (RT-PCR) (Neg) 12/15/20 12/15/20 Range/Units 18:08 19:29 WBC (4.8-10.8) K/uL RBC (4.7-6.1) M/uL Hgb (14.0-18.0) g/dL Hct (42-52) % MCV (80-100) fL MCH (25-34) pg MCHC (32-36) g/dL RDW Std Deviation (36.4-46.3) fL RDW Coeff of Colin (11.5-14.5) % Plt Count (130-400) K/uL MPV (7.4-10.4) fL Immature Gran % (Auto) % Neut % (Auto) % Lymph % (Auto) % Ada % (Auto) % Eos % (Auto) % Baso % (Auto) % Neut # (Auto) (1.4-6.5) K/uL Lymph # (Auto) (1.2-3.4) K/uL Ada # (Auto) (0.11-0.59) K/uL Eos # (Auto) (0-0.5) K/uL Baso # (Auto) (0-0.2) K/uL Immature Gran # (Auto) (0.00-0.02) K/uL PT (9.0-12.0) Seconds INR (0.9-1.1) APTT (21.0-31.0) Seconds PTT Ratio Sodium (136-145) mmol/L Potassium (3.5-5.1) mmol/L Chloride (98-107) mmol/L Carbon Dioxide (21-32) mmol/L Anion Gap (3-11) BUN (7-18) mg/dl Creatinine (0.6-1.4) mg/dl Est Cr Clr Drug Dosing ml/min Est GFR ( Amer) Est GFR (Non-Af Amer) BUN/Creatinine Ratio (10-20) Glucose (70-99) mg/dl Lactate (0.4-2.0) mmol/L Calcium (8.5-10.1) mg/dl Magnesium (1.8-2.4) mg/dl Total Bilirubin (0.2-1) mg/dl AST (15-37) U/L ALT (12-78) U/L Alkaline Phosphatase (45-117) U/L Troponin I (0-0.045) ng/ml NT-Pro-B Natriuret Pep (0-1800) pg/ml Total Protein (6.4-8.2) gm/dl Albumin (3.4-5.0) gm/dl Globulin (2.5-4.0) gm/dl Albumin/Globulin Ratio (0.9-2) Procalcitonin (0-0.5) ng/ml Specimen Hemolysis Urine Color Dark Yellow Urine Appearance Clear (Clear) Urine pH 5.0 (4.5-7.5) Ur Specific [place] 1.036 H (1.000-1.030) Urine Protein 1+ H (Negative) Urine Glucose (UA) Negative (Negative) Urine Ketones Trace H (Negative) Urine Blood Negative (Negative) Urine Nitrite Negative (Negative) Urine Bilirubin Negative (Negative) Urine Urobilinogen Negative (Negative) Ur Leukocyte Esterase Negative (Negative) Urine WBC (Auto) 1-5 (0-5) /hpf Urine RBC (Auto) 0-4 (0-4) /hpf U Hyaline Cast (Auto) 5-10 H (0-5) /lpf U Epithel Cells (Auto) 5-10 H (0-5) /lpf Urine Bacteria (Auto) Negative (Negative) COVID-19 Eval Order SARS-CoV-2 (PCR) POSITIVE A* (Negative) Influenza Type A (PCR) Negative (Neg) Influenza Type B (PCR) Negative (Neg) RSV (RT-PCR) Negative (Neg) Administered Medications Aspirin (Aspirin 81 Mg Ectab) 81 mg PO QPM RADHA Stop: 01/14/21 22:46 Last Admin: 12/16/20 00:05 Dose: 81 mg Documented by: [id number] Carbidopa/Levodopa (Carbidopa/Levodopa 25/100mg Tab) 1 tab PO TID RADHA Stop: 01/14/21 22:46 Last Admin: 12/16/20 00:00 Dose: 1 tab Documented by: [id number] Azithromycin 500 mg/ Dextrose 255 mls @ 125 mls/hr IV Q24H RADHA Stop: 12/22/20 22:59 Last Admin: 12/15/20 23:54 Dose: 125 mls/hr Documented by: [id number] Metoprolol Tartrate (Metoprolol Tartrate 25 Mg Tab) 12.5 mg PO BID RADHA Stop: 01/14/21 22:46 Last Admin: 12/16/20 00:00 Dose: 12.5 mg Documented by: [id number] Potassium Chloride (Potassium Chloride Crtab 20 Meq Tabcr) 20 meq PO TID [facility] Stop: 01/14/21 22:46 Last Admin: 12/16/20 00:05 Dose: 20 meq Documented by: [id number] Discontinued Medications Albuterol (Albut/Ipratrop 3mg/0.5mg Neb 3 Ml Vial) 3 ml NEB NOW STA Stop: 12/15/20 17:56 Last Admin: 12/15/20 18:09 Dose: 3 ml Documented by: [id number] Dexamethasone Sodium Phosphate (DexamethasonePf 10 Mg/Ml Vial) 6 mg IV NOW ONE Stop: 12/15/20 17:56 Last Admin: 12/15/20 18:36 Dose: 6 mg Documented by: [id number] Furosemide (Furosemide 40 Mg/4 Ml Vial) 40 mg IV NOW STA Stop: 12/15/20 19:21 Last Admin: 12/15/20 19:26 Dose: 40 mg Documented by: [id number] Cefepime HCl (Maxipime) 2,000 mg in 20 mls @ 5 mls/min IV NOW STA; Protocol Stop: 12/15/20 17:58 Last Admin: 12/15/20 18:36 Dose: 5 mls/min Documented by: [id number] Sodium Chloride (Nss 1000ml) 500 mls @ 999 mls/hr IV .Q31M ONE Stop: 12/15/20 19:31 Last Admin: 12/15/20 19:25 Dose: Not Given Documented by: [id number] Sodium Chloride (Nss 1000ml) 1,000 mls @ 999 mls/hr IV .Q1H1M ONE Stop: 12/15/20 20:14 Last Admin: 12/15/20 19:24 Dose: Not Given Documented by: [id number] Sodium Chloride (Nss 1000ml) 500 mls @ 999 mls/hr IV .Q31M ONE Stop: 12/15/20 19:44 Last Infusion: 12/15/20 19:24 Dose: 0 mls/hr Documented by: [id number] Admin: 12/15/20 19:19 Dose: 999 mls/hr Documented by: [id number] Albumin Human (Albumin 25%) 12.5 gm in 50 mls @ 50 mls/hr IV TODAY@ [facility] Stop: 12/15/20 23:59 Last Admin: 12/15/20 21:30 Dose: 50 mls/hr Documented by: [id number] Infusion: 12/15/20 21:30 Dose: 50 mls/hr Documented by: [id number] Admin: 12/15/20 20:59 Dose: 50 mls/hr Documented by: [id number] Ioversol (Optiray 320 125ml) 120 ml IV ONCE ONE Stop: 12/15/20 20:24 Last Admin: 12/15/20 20:23 Dose: 120 ml Documented by: [id number] Nitroglycerin (Nitroglycerin 2% Ointment 30gm Tube) 1 inch EXT NOW STA Stop: 12/15/20 19:23 Last Admin: 12/15/20 19:26 Dose: 1 inch Documented by: [id number] Imaging Data Radiologist's Impression: Chest X-Ray 12/15/20 17:56 SINGLE VIEW CHEST CLINICAL HISTORY: Cough. Dyspnea. Sepsis. FINDINGS: An AP, portable, upright chest radiograph is compared to study dated 12/07/2020. Correlation is made with chest CT dated 10/30/2014. The examination is degraded by portable technique and patient rotation. The patient is status post midline sternotomy. The heart is enlarged noting atherosclerotic calcification of the thoracic aorta. There is pulmonary vascular congestion. Hazy interstitial opacities are present in both lungs. No large pleural effusion is identified. No pneumothorax is seen. The skeletal structures are osteopenic. The bony thorax is grossly intact. Cholecystectomy clips and an IVC filter are noted in the upper abdomen. IMPRESSION: 1. Cardiomegaly with evidence of congestive failure. 2. Hazy interstitial airspace opacities likely represent pulmonary edema. Correlate clinically for evidence of a superimposed infectious/inflammatory pneumonitis. ACT 112: Negative or not required by law. Electronically signed by: John Tee M.D. 12/15/2020 7:14 PM Chest CTA 12/15/20 19:14 CT ANGIOGRAM OF THE CHEST CLINICAL HISTORY: Cough and dyspnea. Covid. COMPARISON STUDY: Chest x-ray dated 12/15/2020. Chest CT dated 10/30/2014. TECHNIQUE: Following the IV administration of 120 cc of Optiray 320, CT angiogram of the chest was performed from the upper abdomen to the thoracic inlet utilizing the pulmonary embolus protocol. Images are reviewed in the axial, sagittal, and coronal planes. 3-D MIPS images are created and assessed. IV contrast was administered without complication. A dose lowering technique was utilized adhering to the principles of ALARA. The examination is degraded by motion artifact. CT DOSE: 395.99 mGycm FINDINGS: Thyroid: Normal in size and heterogeneous in attenuation. Thoracic aorta: There is mild atherosclerotic calcification of the thoracic aorta, which is normal in caliber and demonstrates standard 3-vessel arch anatomy. No dissection is seen. Pulmonary vasculature: The pulmonary trunk is normal in caliber. There are no filling defects identified in main, lobar, or segmental pulmonary branches to suggest pulmonary embolus. Heart: The patient is status post midline sternotomy an aortic valve surgery. The heart is enlarged and without pericardial effusion. The coronary arteries are densely calcified. Lungs and pleural spaces: Evaluation of lung parenchyma is significantly degraded by motion artifact. Emphysematous change is noted. Groundglass change is seen throughout both lungs within upper lobe predominance. There is associated intralobular septal thickening. Scattered calcified granulomas are observed. No pleural effusion or pneumothorax is seen. The trachea and central airways are clear. Mediastinum: There are scattered subcentimeter mediastinal lymph nodes. [place]: Clear. Axillae: There is no axillary lymphadenopathy. Upper abdomen: Cholecystectomy clips are noted in the right upper quadrant. There is a moderate to large hiatal hernia. There is thickening of the adrenal glands. Skeletal structures: The skeletal structures are osteopenic. There are chronic compression deformities of T11, T12, and L1. Degenerative change is noted in the shoulders and thoracic spine. No lytic or blastic bony lesions are seen. IMPRESSION: 1. There is no evidence of pulmonary embolus in the main, lobar, or segmental pulmonary arteries. 2. Cardiomegaly and emphysema. 3. There is mild diffuse groundglass change throughout both lungs with an upper lobe predominance and associated intralobular septal thickening. This likely represents a viral pneumonia given the reported clinical history of Covid infection. Clinical correlation will be required and radiographic follow-up to resolution is recommended. 4. There is no pleural effusion. 5. Moderate to large hiatal hernia. 6. Additional findings as above. ACT 112: Negative or not required by law. Electronically signed by: John Tee M.D. 12/15/2020 8:31 PM Discharge Plan Visit Data Chief Complaint: Illness Stated Complaint: COUGH, WEAKNESS ED Provider: John Todd Discharge Problem: Acute respiratory distress, Pneumonia, Hypoxia, CHF (congestive heart failure), COVID-19 Patient Disposition: Admitted As Inpatient Condition: Serious Discharge Instructions Interventions: ED Discharge Assessment Last Done: 12/15/20 22:15 Discharge Problem: Pneumonia Qualifiers: Pneumonia type: due to unspecified organism Laterality: bilateral Lung location: unspecified part of lung Qualified Code(s): J18.9 - Pneumonia, unspecified organism CHF (congestive heart failure) Qualifiers: Heart failure type: unspecified Heart failure chronicity: acute Qualified Code(s): I50.9 - Heart failure, unspecified
[2020-12-15 18:14] LABS: Basophils # (auto) 0.03 K/uL (0-0.2); Basophils % (auto) 0.2 %; Eosinophils # (auto) 0.08 K/uL (0-0.5); Eosinophils % (auto) 0.5 %; Hematocrit (blood only) 42.8 % (42-52); Hemoglobin 14.9 g/dL (14.0-18.0); Immature Granulocytes # (auto) 0.07 K/uL (0.00-0.02); Immature Granulocytes % (auto) 0.5 %; Lymphocytes # (auto) 1.06 K/uL (1.2-3.4); Mean Corpuscular Hgb Conc 34.8 g/dL (32-36); Mean Corpuscular Volume 89.2 fL (80-100); Mean Platelet Volume 10.8 fL (7.4-10.4); Monocytes # (auto) 0.37 K/uL (0.11-0.59); Monocytes % (auto) 2.4 %; Neutrophils # (auto) 13.55 K/uL (1.4-6.5); Neutrophils % (auto) 89.4 %; Platelet Count 301 K/uL (130-400); RDW Coefficient of Variation 13.6 % (11.5-14.5); RDW Standard Deviation 44.9 fL (36.4-46.3); White Blood Count 15.16 K/uL (4.8-10.8)
[2020-12-15 18:33] LABS: INR 1.2 (0.9-1.1); Partial Thromboplastin Ratio 1.1; Prothrombin Time 12.1 Seconds (9.0-12.0)
[2020-12-15 18:50] LABS: Alanine Aminotransferase 74 U/L (12-78); Albumin Globulin Ratio 0.6 (0.9-2); Albumin Level 2.8 gm/dl (3.4-5.0); Alkaline Phosphatase 119 U/L (45-117); Aspartate Aminotransferase 121 U/L (15-37); BUN Creatinine Ratio 19.5 (10-20); Bilirubin,Total 0.6 mg/dl (0.2-1); Blood Urea Nitrogen 26 mg/dl (7-18); Calcium 9.5 mg/dl (8.5-10.1); Carbon Dioxide 20 mmol/L (21-32); Chloride 104 mmol/L (98-107); Creatinine Clr Calc Pharmacy 31.8 ml/min; Est GFR (Non-African American) 47.5; Globulin 4.4 gm/dl (2.5-4.0); Glucose 109 mg/dl (70-99); Magnesium 2.1 mg/dl (1.8-2.4); Potassium 3.6 mmol/L (3.5-5.1); Sodium 135 mmol/L (136-145); Total Protein 7.2 gm/dl (6.4-8.2); Troponin I < 0.015 ng/ml (0-0.045)
[2020-12-15] MEDS ORDERED: SODIUM CHLORIDE 0.9% 1000ML 500 ML IV ONE ×2 (19:01→19:14)
[2020-12-15] MEDS ORDERED: SODIUM CHLORIDE 0.9% 1000ML 1,000 ML IV ONE (19:14)
--- NOTE | 2020-12-15 19:15 | XRay Report ---
SINGLE VIEW CHEST CLINICAL HISTORY: Cough. Dyspnea. Sepsis. FINDINGS: An AP, portable, upright chest radiograph is compared to study dated 12/07/2020. Correlation is made with chest CT dated 10/30/2014. The examination is degraded by portable technique and patient rotation. The patient is status post midline sternotomy. The heart is enlarged noting atheroscleroti c calcification of the thoracic aorta. There is pulmonary vascular congestion. Hazy interstitial opac ities are present in both lungs. No large pleural effusion is identified. No pneumothorax is seen. Th e skeletal structures are osteopenic. The bony thorax is grossly intact. Cholecystectomy clips and an IVC filter are noted in the upper abdomen. IMPRESSION: 1. Cardiomegaly with evidence of congestive failure. 2. Hazy interstitial airspace opacities likely represent pulmonary edema. Correlate clinically for ev idence of a superimposed infectious/inflammatory pneumonitis. ACT 112: Negative or not required by law. Electronically signed by: John Tee M.D. 12/15/2020 7:14 PM
[2020-12-15 19:18] LABS: Influenza A virus by PCR Negative (Neg); Influenza B virus by PCR Negative (Neg); RSV by PCR Negative (Neg)
[2020-12-15] MEDS ORDERED: FUROSEMIDE 40 MG/4 ML VIAL IV STA (19:20)
[2020-12-15] MEDS ORDERED: NITROGLYCERIN 2% OINTMENT 30GM TUBE EXT STA (19:22)
[2020-12-15 19:27] LABS: SARS CoV2 RNA(COVID-19) InHosp POSITIVE (Negative)
[2020-12-15 19:36] LABS: NT Pro B Type Natriuretic Pept 1200 pg/ml (0-1800)
[2020-12-15 19:53] LABS: Appearance Urine Clear (Clear); Bacteria Urine Automated Negative (Negative); Bilirubin Urine Negative (Negative); Blood Urine Negative (Negative); Color Urine Dark Yellow; Glucose Urine UA Negative (Negative); Ketones Urine Trace (Negative); Leukocyte Esterase Urine Negative (Negative); Nitrite Urine Negative (Negative); Protein Urine 1+ (Negative); RBC Urine Automated 0-4 /hpf (0-4); Specific Gravity Urine 1.036 (1.000-1.030); Urobilinogen Urine Negative (Negative)
[2020-12-15] MEDS ORDERED: PIPERACILL/TAZOBAC CONSULT ACTIVE PRN (20:17)
--- NOTE | 2020-12-15 20:21 | History & Physical Report ---
Date of Service December 15, 2020 Assessment & Plan (1) Acute respiratory failure with hypoxia: Acute respiratory failure with hypoxia/pneumonia due to COVID-19 virus/CHF exacerbation- Present on Admission?: Yes (2) Pneumonia due to COVID-19 virus: Pneumonia due to COVID-19 virus- Dexamethasone 6 mg IV every morning BiPAP per protoco Remdesivir per protocol Duonebs every 4 hours while awake and every 2 hours when necessary. Guaifenesin extended release 600 mg p.o. twice daily Vitamin D 5000 international units p.o. daily Zinc sulfate 220 mg p.o. every morning Azithromycin 500 mg IV daily Zosyn 3.375 mg IV every 8 hours Present on Admission?: Yes (3) CHF (congestive heart failure): Placed on furosemide 40 mg IV twice daily, and albumin 25 g IV twice daily. 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 Repeat endoscopy on 01/24/2016 was negative, and at that time GI recommendation was that patient could undergo anticoagulation with heparin if necessary. Present on Admission?: Yes (6) DVT (deep venous thrombosis): History of DVT/IVC filter placement Present on Admission?: Yes (7) GERD (gastroesophageal reflux disease): Continue pantoprazole 40 mg every morning Present on Admission?: Yes (8) Hypothyroidism (acquired): Continue levothyroxine 100 mcg every morning Present on Admission?: Yes (9) Dementia: Continue donepezil Present on Admission?: Yes (10) Parkinson's disease: Continue carbidopa levodopa Present on Admission?: Yes History of Present Illness Chief Complaint: The patient presents to the emergency department with 1 month of shortness of breath, dyspnea on exertion, generalized fatigue that worsened since getting his second Covid vaccine. 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 Patient was seen by his PCP recently, and was placed on an antibiotic, which is not improved his symptoms above is noted. In the emergency department this evening, his pulse ox on room air was in the low 60s, and improved on BiPAP to 94. Laboratories in the emergency department this evening confirmed COVID-19 infection. Chest x-ray showed a mixture of congestive heart failure and viral pneumonia. Allergies Allergy/AdvReac Type Severity Reaction Status Date / Time No Known Allergies Allergy Verified 12/15/20 19:36 Home Medications Medication Instructions Recorded Confirmed Type acetaminophen 500 mg PO Q4H 12/15/20 12/15/20 History amoxicillin 500 mg PO BID 12/15/20 12/15/20 History aspirin [Aspirin Low Dose] 81 mg PO QPM 12/15/20 12/15/20 History benzonatate 100 mg PO Q6H 12/15/20 12/15/20 History carbidopa-levodopa 1 tab PO TID 12/15/20 12/15/20 History donepezil 10 mg PO QAM 12/15/20 12/15/20 History levothyroxine 100 mcg PO QAM 12/15/20 12/15/20 History metoprolol tartrate 12.5 mg PO BID 12/15/20 12/15/20 History pantoprazole 40 mg PO QAM 12/15/20 12/15/20 History potassium chloride 10 meq PO QAM 12/15/20 12/15/20 History Past Med/Surg History Medical History CVA (cerebral vascular accident) DVT (deep venous thrombosis) Upper GI bleed Social History Smoking Status: Never smoker Hx Alcohol Use: No Hx Substance Use: No Preferred Language: Lao Communication Ability: Impaired Communication Ability Comment: [facility] [employer] Required: No Beliefs That Will Affect Care: None Current Living Situation: Spouse Other Information That Helps Us Care for You: No Feels Safe at Home: Yes Safety Concerns: Feels Safe At This Time Assistive Devices: Cane, Denture - Upper, Glasses, Hearing Aid - Bilateral and Walker Review of Systems Review of Systems: The patient denies chest pain, palpitations, lower extremity swelling, sore throat, fevers, chills, sweats, nausea, vomiting, diarrhea , constipation, abdominal pain, pelvic pain, blood in urine or stool, dysuria, urinary frequency or urgency, lightheadedness, dizziness, headache, memory loss, loss of consciousness, rash, abnormal bruising or bleeding, imbalance, focal weakness, numbness or tingling in arms or legs, neck pain, or night sweats. The review of systems is otherwise negative other than for that already noted above, and at least 10 systems have been reviewed. Physical Exam Physical Exam: The patient is awake, alert and oriented 3, well developed and well nourished, normocephalic and atraumatic, lying in bed and in no acute distress. HEENT--PERRL, EOMI, mucous membranes and oropharynx dry. Neck--supple. No JVD. No bruits. Thyroid normal, trachea midline, no adenop athy. Heart--normal S1 and S2. No murmurs, rubs or gallops. Lungs--coarse breath sounds bilaterally. No respiratory distress, no accessory muscle use with BiPAP mask in place. Abdomen--normal bowel sounds and soft. Nontender. Nondistended, no hernias or masses, no organomegaly. Extremities--no cyanosis or clubbing. No edema. Dermatologic--normal skin turgor, normal color, no abnormal lymph nodes, no rash. Neurologic--cranial nerves II through XII grossly intact. Rheumatologic--normal range of motion. Psychiatric--normal affect. Results & Data Results & Data ([facility]) Vital Signs (Past 12 Hours) Vital Signs Temp Pulse Pulse Resp BP Pulse Ox 12/15/20 18:36 101 H 32 H 126/78 94 12/15/20 18:30 95 H 36 H 96 12/15/20 18:23 90 37 H 96 12/15/20 18:10 87 25 H 86 L 12/15/20 18:08 83 L 12/15/20 18:00 87 31 H 82 L 12/15/20 17:57 90 22 83 L 12/15/20 17:40 98.2 F 93 H 28 H 147/96 H 68 L Laboratory Results Laboratory Results WBC 15.16 K/uL (4.8-10.8) H 12/15/20 18:04 RBC 4.80 M/uL (4.7-6.1) 12/15/20 18:04 Hgb 14.9 g/dL (14.0-18.0) 12/15/20 18:04 Hct 42.8 % (42-52) 12/15/20 18:04 MCV 89.2 fL (80-100) 12/15/20 18:04 MCH 31.0 pg (25-34) 12/15/20 18:04 MCHC 34.8 g/dL (32-36) 12/15/20 18:04 RDW Std Deviation 44.9 fL (36.4-46.3) 12/15/20 18:04 RDW Coeff of Colin 13.6 % (11.5-14.5) 12/15/20 18:04 Plt Count 301 K/uL (130-400) 12/15/20 18:04 MPV 10.8 fL (7.4-10.4) H 12/15/20 18:04 Immature Gran % (Auto) 0.5 % 12/15/20 18:04 Neut % (Auto) 89.4 % 12/15/20 18:04 Lymph % (Auto) 7.0 % 12/15/20 18:04 [place] % (Auto) 2.4 % 12/15/20 18:04 Eos % (Auto) 0.5 % 12/15/20 18:04 Baso % (Auto) 0.2 % 12/15/20 18:04 Neut # (Auto) 13.55 K/uL (1.4-6.5) H 12/15/20 18:04 Lymph # (Auto) 1.06 K/uL (1.2-3.4) L 12/15/20 18:04 Garrett # (Auto) 0.37 K/uL (0.11-0.59) 12/15/20 18:04 Eos # (Auto) 0.08 K/uL (0-0.5) 12/15/20 18:04 Baso # (Auto) 0.03 K/uL (0-0.2) 12/15/20 18:04 Immature Gran # (Auto) 0.07 K/uL (0.00-0.02) H 12/15/20 18:04 PT 12.1 Seconds (9.0-12.0) H 12/15/20 18:04 INR 1.2 (0.9-1.1) H 12/15/20 18:04 APTT 30.0 Seconds (21.0-31.0) 12/15/20 18:04 PTT Ratio 1.1 12/15/20 18:04 Sodium 135 mmol/L (136-145) L 12/15/20 18:04 Potassium 3.6 mmol/L (3.5-5.1) 12/15/20 18:04 Chloride 104 mmol/L (98-107) 12/15/20 18:04 Carbon Dioxide 20 mmol/L (21-32) L 12/15/20 18:04 Anion Gap 11.0 (3-11) 12/15/20 18:04 BUN 26 mg/dl (7-18) H 12/15/20 18:04 Creatinine 1.32 mg/dl (0.6-1.4) 12/15/20 18:04 Est Cr Clr Drug Dosing 31.8 ml/min 12/15/20 18:04 Est GFR ( Amer) 55.0 12/15/20 18:04 Est GFR (Non-Af Amer) 47.5 12/15/20 18:04 BUN/Creatinine Ratio 19.5 (10-20) 12/15/20 18:04 Glucose 109 mg/dl (70-99) H 12/15/20 18:04 Lactate 2.8 mmol/L (0.4-2.0) H* 12/15/20 22:39 Calcium 9.5 mg/dl (8.5-10.1) 12/15/20 18:04 Magnesium 2.1 mg/dl (1.8-2.4) 12/15/20 18:04 Total Bilirubin 0.6 mg/dl (0.2-1) 12/15/20 18:04 AST 121 U/L (15-37) H 12/15/20 18:04 ALT 74 U/L (12-78) 12/15/20 18:04 Alkaline Phosphatase 119 U/L (45-117) H 12/15/20 18:04 Troponin I < 0.015 ng/ml (0-0.045) 12/15/20 18:04 NT-Pro-B Natriuret Pep 1200 pg/ml (0-1800) 12/15/20 18:04 Total Protein 7.2 gm/dl (6.4-8.2) 12/15/20 18:04 Albumin 2.8 gm/dl (3.4-5.0) L 12/15/20 18:04 Globulin 4.4 gm/dl (2.5-4.0) H 12/15/20 18:04 Albumin/Globulin Ratio 0.6 (0.9-2) L 12/15/20 18:04 Procalcitonin > 200.00 ng/ml (0-0.5) H 12/15/20 18:04 Specimen Hemolysis 12/15/20 18:04 Urine Color Dark Yellow 12/15/20 19:29 Urine Appearance Clear (Clear) 12/15/20 19:29 Urine pH 5.0 (4.5-7.5) 12/15/20 19:29 Ur Specific [place] 1.036 (1.000-1.030) H 12/15/20 19:29 Urine Protein 1+ (Negative) H 12/15/20 19:29 Urine Glucose (UA) Negative (Negative) 12/15/20 19:29 Urine Ketones Trace (Negative) H 12/15/20 19:29 Urine Blood Negative (Negative) 12/15/20 19:29 Urine Nitrite Negative (Negative) 12/15/20 19:29 Urine Bilirubin Negative (Negative) 12/15/20 19:29 Urine Urobilinogen Negative (Negative) 12/15/20 19:29 Ur Leukocyte Esterase Negative (Negative) 12/15/20 19:29 Urine WBC (Auto) 1-5 /hpf (0-5) 12/15/20 19:29 Urine RBC (Auto) 0-4 /hpf (0-4) 12/15/20 19:29 U Hyaline Cast (Auto) 5-10 /lpf (0-5) H 12/15/20 19:29 U Epithel Cells (Auto) 5-10 /lpf (0-5) H 12/15/20 19:29 Urine Bacteria (Auto) Negative (Negative) 12/15/20 19:29 COVID-19 Eval Order [facility]sv at [facility] 12/15/20 18:08 SARS-CoV-2 (PCR) POSITIVE (Negative) A* 12/15/20 18:08 Influenza Type A (PCR) Negative (Neg) 12/15/20 18:08 Influenza Type B (PCR) Negative (Neg) 12/15/20 18:08 RSV (RT-PCR) Negative (Neg) 12/15/20 18:08 Impressions Chest X-Ray 12/15/20 17:56 SINGLE VIEW CHEST CLINICAL HISTORY: Cough. Dyspnea. Sepsis. FINDINGS: An AP, portable, upright chest radiograph is compared to study dated 12/07/2020. Correlation is made with chest CT dated 10/30/2014. The examination is degraded by portable technique and patient rotation. The patient is status post midline sternotomy. The heart is enlarged noting atherosclerotic calcification of the thoracic aorta. There is pulmonary vascular congestion. Hazy interstitial opacities are present in both lungs. No large pleural effusion is identified. No pneumothorax is seen. The skeletal structures are osteopenic. The bony thorax is grossly intact. Cholecystectomy clips and an IVC filter are noted in the upper abdomen. IMPRESSION: 1. Cardiomegaly with evidence of congestive failure. 2. Hazy interstitial airspace opacities likely represent pulmonary edema. Correlate clinically for evidence of a superimposed infectious/inflammatory pneumonitis. ACT 112: Negative or not required by law. Electronically signed by: John Tee M.D. 12/15/2020 7:14 PM Chest CTA 12/15/20 19:14 CT ANGIOGRAM OF THE CHEST CLINICAL HISTORY: Cough and dyspnea. Covid. COMPARISON STUDY: Chest x-ray dated 12/15/2020. Chest CT dated 10/30/2014. TECHNIQUE: Following the IV administration of 120 cc of Optiray 320, CT angiogram of the chest was performed from the upper abdomen to the thoracic inlet utilizing the pulmonary embolus protocol. Images are reviewed in the axial, sagittal, and coronal planes. 3-D MIPS images are created and assessed. IV contrast was administered without complication. A dose lowering technique was utilized adhering to the principles of ALARA. The examination is degraded by motion artifact. CT DOSE: 395.99 mGycm FINDINGS: Thyroid: Normal in size and heterogeneous in attenuation. Thoracic aorta: There is mild atherosclerotic calcification of the thoracic aorta, which is normal in caliber and demonstrates standard 3-vessel arch anatomy. No dissection is seen. Pulmonary vasculature: The pulmonary trunk is normal in caliber. There are no filling defects identified in main, lobar, or segmental pulmonary branches to suggest pulmonary embolus. Heart: The patient is status post midline sternotomy an aortic valve surgery. The heart is enlarged and without pericardial effusion. The coronary arteries are densely calcified. Lungs and pleural spaces: Evaluation of lung parenchyma is significantly degraded by motion artifact. Emphysematous change is noted. Groundglass change is seen throughout both lungs within upper lobe predominance. There is associated intralobular septal thickening. Scattered calcified granulomas are observed. No pleural effusion or pneumothorax is seen. The trachea and central airways are clear. Mediastinum: There are scattered subcentimeter mediastinal lymph nodes. [place]: Clear. Axillae: There is no axillary lymphadenopathy. Upper abdomen: Cholecystectomy clips are noted in the right upper quadrant. There is a moderate to large hiatal hernia. There is thickening of the adrenal glands. Skeletal structures: The skeletal structures are osteopenic. There are chronic compression deformities of T11, T12, and L1. Degenerative change is noted in the shoulders and thoracic spine. No lytic or blastic bony lesions are seen. IMPRESSION: 1. There is no evidence of pulmonary embolus in the main, lobar, or segmental pulmonary arteries. 2. Cardiomegaly and emphysema. 3. There is mild diffuse groundglass change throughout both lungs with an upper lobe predominance and associated intralobular septal thickening. This likely represents a viral pneumonia given the reported clinical history of Covid infection. Clinical correlation will be required and radiographic follow-up to resolution is recommended. 4. There is no pleural effusion. 5. Moderate to large hiatal hernia. 6. Additional findings as above. ACT 112: Negative or not required by law. Electronically signed by: John Tee M.D. 12/15/2020 8:31 PM Code Status & VTE Plan Code Status Full code VTE Prophylaxis Plan VTE Prophylaxis will be ordered: Yes PG Care Time/CCT Total # of Minutes Spent Total Time Spent with Patient: Total time spent is greater than 50% in coordination of care (as documented) at patient's floor/unit and/or counseling patient: Coding Level of Care Code 13134 Initial Inpt Care Lvl 3 Diagnoses Acute respiratory failure with hypoxia J96.01 Pneumonia due to COVID-19 virus U07.1; J12.82 CHF (congestive heart failure) I50.9 Heart failure chronicity: acute Heart failure type: unspecified CVA (cerebral vascular accident) I63.9 Upper GI bleed K92.2 DVT (deep venous thrombosis) I82.409 GERD (gastroesophageal reflux disease) K21.9 Hypothyroidism (acquired) E03.9 Dementia F03.90 Parkinson's disease G20 (1) CHF (congestive heart failure) Heart failure chronicity: acute Heart failure type: unspecified Qualified Code(s): I50.9 - Heart failure, unspecified
[2020-12-15] MEDS ORDERED: OPTIRAY 320 125ml IV ONE (20:23)
--- NOTE | 2020-12-15 20:32 | CT Scan Report ---
CT ANGIOGRAM OF THE CHEST CLINICAL HISTORY: Cough and dyspnea. Covid. COMPARISON STUDY: Chest x-ray dated 12/15/2020. Chest CT dated 10/30/2014. TECHNIQUE: Following the IV administration of 120 cc of Optiray 320, CT angiogram of the chest was pe rformed from the upper abdomen to the thoracic inlet utilizing the pulmonary embolus protocol. Images are reviewed in the axial, sagittal, and coronal planes. 3-D MIPS images are created and assessed. I V contrast was administered without complication. A dose lowering technique was utilized adhering to the principles of ALARA. The examination is degraded by motion artifact. CT DOSE: 395.99 mGycm FINDINGS: Thyroid: Normal in size and heterogeneous in attenuation. Thoracic aorta: There is mild atherosclerotic calcification of the thoracic aorta, which is normal in caliber and demonstrates standard 3-vessel arch anatomy. No dissection is seen. Pulmonary vasculature: The pulmonary trunk is normal in caliber. There are no filling defects identif ied in main, lobar, or segmental pulmonary branches to suggest pulmonary embolus. Heart: The patient is status post midline sternotomy an aortic valve surgery. The heart is enlarged a nd without pericardial effusion. The coronary arteries are densely calcified. Lungs and pleural spaces: Evaluation of lung parenchyma is significantly degraded by motion artifact. Emphysematous change is noted. Groundglass change is seen throughout both lungs within upper lobe pr edominance. There is associated intralobular septal thickening. Scattered calcified granulomas are ob served. No pleural effusion or pneumothorax is seen. The trachea and central airways are clear. Mediastinum: There are scattered subcentimeter mediastinal lymph nodes. [place]: Clear. Axillae: There is no axillary lymphadenopathy. Upper abdomen: Cholecystectomy clips are noted in the right upper quadrant. There is a moderate to la rge hiatal hernia. There is thickening of the adrenal glands. Skeletal structures: The skeletal structures are osteopenic. There are chronic compression deformitie s of T11, T12, and L1. Degenerative change is noted in the shoulders and thoracic spine. No lytic or blastic bony lesions are seen. IMPRESSION: 1. There is no evidence of pulmonary embolus in the main, lobar, or segmental pulmonary arteries. 2. Cardiomegaly and emphysema. 3. There is mild diffuse groundglass change throughout both lungs with an upper lobe predominance and associated intralobular septal thickening. This likely represents a viral pneumonia given the report ed clinical history of Covid infection. Clinical correlation will be required and radiographic follow -up to resolution is recommended. 4. There is no pleural effusion. 5. Moderate to large hiatal hernia. 6. Additional findings as above. ACT 112: Negative or not required by law. Electronically signed by: John Tee M.D. 12/15/2020 8:31 PM
[2020-12-15] MEDS: ALBUMIN 25% 12.5 GM/50 ML VIAL IV SCH ×2 (20:59→21:30)
[2020-12-15] MEDS ORDERED: ACETAMINOPHEN 325 MG TAB PO PRN (22:47)
[2020-12-15] MEDS ORDERED: ONDANSETRON INJ 2 MG/ML 2 ML VIAL IV PRN (22:47)
[2020-12-15] MEDS ORDERED: REMDESIVIR 200 MG in SODIUM CHLORIDE 0.9% 210 ML IV ONE (23:30)
[2020-12-15] MEDS: AZITHROMYCIN 500 MG in DEXTROSE 5% 250 ML IV SCH (23:54)
[2020-12-16] MEDS: POTASSIUM CHLORIDE CRTAB 20 MEQ TABCR PO SCH ×3 (00:05→14:48)
[2020-12-16] MEDS: ASPIRIN 81 MG ECTAB PO SCH ×2 (00:05→20:41)
[2020-12-16] MEDS ORDERED: PIPERACILLIN/TAZOBACTAM 4.5 GM in DEXTROSE 5% 100 ML IV ONE (06:00)
[2020-12-16] MEDS ORDERED: LEVOTHYROXINE SODIUM 100 MCG TABLET PO SCH (06:30)
[2020-12-16 06:38] LABS: Basophils # (auto) 0.01 K/uL (0-0.2); Basophils % (auto) 0.1 %; Hematocrit (blood only) 40.3 % (42-52); Immature Granulocytes # (auto) 0.11 K/uL (0.00-0.02); Immature Granulocytes % (auto) 0.7 %; Lymphocytes # (auto) 0.43 K/uL (1.2-3.4); Lymphocytes % (auto) 2.6 %; Mean Corpuscular Hemoglobin 30.7 pg (25-34); Mean Corpuscular Hgb Conc 34.7 g/dL (32-36); Mean Corpuscular Volume 88.4 fL (80-100); Mean Platelet Volume 11.1 fL (7.4-10.4); Monocytes # (auto) 0.32 K/uL (0.11-0.59); Monocytes % (auto) 1.9 %; Neutrophils # (auto) 15.93 K/uL (1.4-6.5); Neutrophils % (auto) 94.7 %; Platelet Count 288 K/uL (130-400); RDW Coefficient of Variation 13.8 % (11.5-14.5); RDW Standard Deviation 44.5 fL (36.4-46.3); Red Blood Count 4.56 M/uL (4.7-6.1)
[2020-12-16 06:51] LABS: INR 1.3 (0.9-1.1); Partial Thromboplastin Ratio 1.4; Partial Thromboplastin Time 37.5 Seconds (21.0-31.0)
[2020-12-16 07:04] LABS: Alanine Aminotransferase 18 U/L (12-78); Albumin Level 2.8 gm/dl (3.4-5.0); Aspartate Aminotransferase 71 U/L (15-37); BUN Creatinine Ratio 21.3 (10-20); Blood Urea Nitrogen 26 mg/dl (7-18); Calcium 9.6 mg/dl (8.5-10.1); Carbon Dioxide 24 mmol/L (21-32); Chloride 105 mmol/L (98-107); Creatinine Clr Calc Pharmacy 34.4 ml/min; Est GFR (African American) 60.5; Est GFR (Non-African American) 52.2; Glucose 135 mg/dl (70-99); Magnesium 2.3 mg/dl (1.8-2.4); Potassium 4.4 mmol/L (3.5-5.1); Sodium 136 mmol/L (136-145)
[2020-12-16 07:11] LABS: Albumin Globulin Ratio 0.7 (0.9-2); Alkaline Phosphatase 109 U/L (45-117); Bilirubin,Total 0.5 mg/dl (0.2-1); Globulin 3.8 gm/dl (2.5-4.0); Total Protein 6.6 gm/dl (6.4-8.2); Troponin I < 0.015 ng/ml (0-0.045)
[2020-12-16] MEDS: ALBUT/IPRATROP 3MG/0.5MG NEB 3 ML VIAL NEB SCH ×4 (07:30→19:22)
[2020-12-16] MEDS: ALBUMIN 25% 12.5 GM/50 ML VIAL IV SCH ×3 (07:56→21:54)
[2020-12-16] MEDS ORDERED: FUROSEMIDE 40 MG in SYRINGE 0 ML IV SCH (08:00)
--- NOTE | 2020-12-16 08:59 | Electrocardiogram Report ---
Test Reason : Blood Pressure : / mmHG Vent. Rate : 089 BPM Atrial Rate : 089 BPM P-R Int : 172 ms QRS Dur : 086 ms QT Int : 346 ms P-R-T Axes : 005 -36 039 degrees QTc Int : 420 ms Normal sinus rhythm Left atrial enlargement Left axis deviation Abnormal ECG When compared with ECG of 13-APR-2017 07:27, No significant change was found Confirmed by Gilson Pelletier ([id number]) on 12/16/2020 8:59:06 AM Referred By: REFERRED SELF Confirmed By:Gilson Pelletier
[2020-12-16] MEDS ORDERED: PANTOprazole 40 MG TAB PO SCH (09:00)
[2020-12-16] MEDS: PIPERACILLIN/TAZOBACTAM 3.375 GM in DEXTROSE 5% 100 ML IV SCH ×2 (09:01→17:27)
[2020-12-16] MEDS: CARBIDOPA/LEVODOPA 25/100MG TAB PO SCH ×4 (09:04→20:41)
[2020-12-16] MEDS: ZINC SULFATE 220 MG CAPSULE PO SCH (09:04)
[2020-12-16] MEDS: dexAMETHasone 6 MG in SYRINGE 0 ML IV SCH (09:04)
[2020-12-16] MEDS: METOPROLOL TARTRATE 25 MG TAB PO SCH ×2 (09:05)
[2020-12-16] MEDS: CHOLECALCIFEROL 1,000 UNITS 25 MCG TAB PO SCH (09:05)
[2020-12-16] MEDS: DONEPEZIL HCL 10 MG TAB PO SCH (09:05)
--- NOTE | 2020-12-16 10:52 | Hospitalist Progress Note ---
Date of Service December 16, 2020 Assessment & Plan (1) Acute respiratory failure with hypoxia: Acute respiratory failure with hypoxemia CT chest with mild ground glass changes, not severe like you might expect with such severe hypoxia responded decent to Lasix but no further doses as he does not appear volume overload and Echo with normal EF, no mitral regurgitation no atrial septal defects to suggest shunt physiology ABG with PaO2 75 and his saturations were 95%, correlated with pulse ox readings continue on CPAP 10mmHg and FiO2 45% attempted twice to place him on 15L oxymask but his saturations drop to 84% without the PEEP he is comfortable, no labored breathing if we cannot get him off CPAP tomorrow then will ask pulmonology to see him in the morning (2) Pneumonia due to COVID-19 virus: Pneumonia due to COVID-19 virus- Dexamethasone 6 mg IV every morning x 10 days Remdesivir per protocol patient had his second COVID shot on 11/17/20, started to feel ill a few days later got really short of breath, cough, aches about two weeks ago was treated with antibiotics and cough suppressant tested positive for COVID on 12/15, unsure how long he has bee ill no one around him has symptoms of COVID, but his and daughters have all bee n vaccinated seems like the most likely cause of his acute hypoxia, less inclined to think it is heart failure with normal echo and BNP of 1200 however, CT chest was not overly impressive for ground glass changes, certainly have seen worse (3) Sepsis: suspected sepsis but unclear source CT chest with no consolidation, UA was clean, no abdominal pain, no back pain, no neck pain no fever/chills per patient and his daughter confirms this his procalcitonin is incredibly high at >200, this was repeated to confirm it was not a lab error, again > 200 ESR is 44, CRP elevated although this could be due to COVID blood cultures are pending his daughter states he has a h/o bacteremia 2 years ago requiring IV antibiotics will keep him on Zosyn, Zithromax, add Vanco for MRSA coverage, follow up on cultures no vegetations on TRINI, if blood cultures positive could consider TRINI but respiratory status would prohibit this no fever or chills here, vitals are stable, not hypotensive, only issue is the hypoxemia the is CPAP dependent if blood cultures positive then will get CT abdomen/pelvis repeat CBC, CMP in the morning (4) CHF (congestive heart failure): possible acute heart failure with preserved EF -1500mL with Albumin and Lasix on admission but echo shows EF of 65%, no mitral regurgitation, 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, no ASD hold on further Lasix for now, BP low normal and examines euvolemic (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 (6) GERD (gastroesophageal reflux disease): Continue pantoprazole 40 mg every morning (7) Hypothyroidism (acquired): Continue levothyroxine 100 mcg every morning (8) Dementia: Continue donepezil (9) Parkinson's disease: Continue carbidopa levodopa (10) DVT (deep venous thrombosis): History of DVT/IVC filter placement Admission and Anticipated Discharge Date Admission Date: December 15, 2020 Subjective patient still requiring CPAP water pressure of 10 and FiO2 is 45% RN took mask off briefly to give morning medications and saturations dropped to 70's reviewed chart extensively, CT chest with some mild ground glass changes, no PE, no obvious pleural effusions or pulmonary edema WBC elevated and left shift with >90% PMN Cr and electrolytes stable procalcitonin > 200? blood cultures were drawn no clear source for bacterial infection, no consolidation on CT chest, clean urine, abdomen is soft, NT will repeat procalcitonin, check ESR, CRP, D dimer, LDH, check ABG to check his PaO2 spoke with his daughter iKara over the phone, offered more background info he got his 2nd COVID vaccine on 11/17/20 and a few days later started with aches, weakness, headache, generally not feeling well then 2 weeks ago started with some dyspnea, cough and was diagnosed with bronchitis by PCP, prescribed an unknown antibiotic and cough suppressant did not get better, finally referred to ED yesterday, tested positive for COVID no one else around him has COVID, his is vaccinated, his two daughters who help with him are vaccinated he has a history of bovine AVR in 2010 and two years ago he had bacteremia per his daughter Review of Systems Review of Systems: All systems reviewed & are unremarkable except as noted in Subjective Constitutional: + fatigue and + weakness; no fever, no chills and no sweats Respiratory: + cough, + dyspnea and + dyspnea on exertion; no chest congestion, no pain with cough and no sputum production Cardiovascular: no chest pain, no palpitations, no syncope and no edema Gastrointestinal: no abdominal pain, no nausea, no vomiting, no constipation and no diarrhea/loose stools Musculoskeletal: + muscle weakness and + body aches Physical Exam Constitutional: well developed, + frail appearing and comfortable; no acute distress ENMT: Mouth: + dry oral mucous membranes (due to CPAP) Neck: trachea midline, no thyromegaly Respiratory: + uses accessory muscles (belly breathing) and + tachypneic; no respiratory distress and no labored breathing Auscultation: + diminished lung sounds; no crackles, no rales and no wheezes Cardiovascular: RRR, no murmur, no edema Gastrointestinal (Abdomen): normal bowel sounds, soft, nontender, no hepatosplenomegaly Musculoskeletal: no cyanosis or clubbing, extremities motor strength 5/5 Skin: normal turgor and + dry skin (cool to touch); no rashes Neurologic: patellar DTR's 2+ bilat, sensation intact and PERRL, EOMI, accommodation nl, no face palsy, no dysarthria Motor/Sensory: + tremor (resting tremor, right arm/hand) Psychiatric: A+Ox3, euthymic affect Lymphatic: no cervical or axillary lymphadenopathy Results & Data Results & Data ([facility]) Vital Signs (Past 12 Hours) Vital Signs Temp Pulse Pulse Resp BP Pulse Ox 12/16/20 08:04 36.6 C 62 22 123/67 93 12/16/20 07:32 64 64 30 H 94 12/16/20 05:00 36.5 C 60 20 124/73 94 12/16/20 03:52 62 29 H 93 12/16/20 00:00 36.4 C 66 26 H 113/64 92 12/15/20 23:00 81 Laboratory Results Laboratory Results - last 24 hr 12/15/20 12/15/20 12/15/20 18:04 18:04 18:04 WBC 15.16 H RBC 4.80 Hgb 14.9 Hct 42.8 MCV 89.2 MCH 31.0 MCHC 34.8 RDW Std Deviation 44.9 RDW Coeff of Colin 13.6 Plt Count 301 MPV 10.8 H Immature Gran % (Auto) 0.5 Neut % (Auto) 89.4 Lymph % (Auto) 7.0 Cascade % (Auto) 2.4 Eos % (Auto) 0.5 Baso % (Auto) 0.2 Neut # (Auto) 13.55 H Lymph # (Auto) 1.06 L Cascade # (Auto) 0.37 Eos # (Auto) 0.08 Baso # (Auto) 0.03 Immature Gran # (Auto) 0.07 H ESR PT INR APTT PTT Ratio D-Dimer ABG pH ABG pCO2 ABG pO2 ABG HCO3 ABG O2 Saturation ABG Base Excess Jose E Test Barometric Pressure Oxygen Given Sodium 135 L Potassium 3.6 Chloride 104 Carbon Dioxide 20 L Anion Gap 11.0 BUN 26 H Creatinine 1.32 Est Cr Clr Drug Dosing 31.8 Est GFR ( Amer) 55.0 Est GFR (Non-Af Amer) 47.5 BUN/Creatinine Ratio 19.5 Glucose 109 H Lactate Calcium 9.5 Magnesium 2.1 Total Bilirubin 0.6 AST 121 H ALT 74 Alkaline Phosphatase 119 H Lactate Dehydrogenase Troponin I < 0.015 C-Reactive Protein NT-Pro-B Natriuret Pep 1200 Total Protein 7.2 Albumin 2.8 L Globulin 4.4 H Albumin/Globulin Ratio 0.6 L Procalcitonin > 200.00 H Specimen Hemolysis Urine Color Urine Appearance Urine pH Ur Specific L[place] Urine Protein Urine Glucose (UA) Urine Ketones Urine Blood Urine Nitrite Urine Bilirubin Urine Urobilinogen Ur Leukocyte Esterase Urine WBC (Auto) Urine RBC (Auto) U Hyaline Cast (Auto) U Epithel Cells (Auto) Urine Bacteria (Auto) COVID-19 Eval Order SARS-CoV-2 (PCR) Influenza Type A (PCR) Influenza Type B (PCR) RSV (RT-PCR) 12/15/20 12/15/20 12/15/20 18:04 18:04 18:08 WBC RBC Hgb Hct MCV MCH MCHC RDW Std Deviation RDW Coeff of Colin Plt Count MPV Immature Gran % (Auto) Neut % (Auto) Lymph % (Auto) Cascade % (Auto) Eos % (Auto) Baso % (Auto) Neut # (Auto) Lymph # (Auto) Cascade # (Auto) Eos # (Auto) Baso # (Auto) Immature Gran # (Auto) ESR PT 12.1 H INR 1.2 H APTT 30.0 PTT Ratio 1.1 D-Dimer ABG pH ABG pCO2 ABG pO2 ABG HCO3 ABG O2 Saturation ABG Base Excess Jose E Test Barometric Pressure Oxygen Given Sodium Potassium Chloride Carbon Dioxide Anion Gap BUN Creatinine Est Cr Clr Drug Dosing Est GFR ( Amer) Est GFR (Non-Af Amer) BUN/Creatinine Ratio Glucose Lactate 4.6 H* Calcium Magnesium Total Bilirubin AST ALT Alkaline Phosphatase Lactate Dehydrogenase Troponin I C-Reactive Protein NT-Pro-B Natriuret Pep Total Protein Albumin Globulin Albumin/Globulin Ratio Procalcitonin Specimen Hemolysis Urine Color Urine Appearance Urine pH Ur Specific [place] Urine Protein Urine Glucose (UA) Urine Ketones Urine Blood Urine Nitrite Urine Bilirubin Urine Urobilinogen Ur Leukocyte Esterase Urine WBC (Auto) Urine RBC (Auto) U Hyaline Cast (Auto) U Epithel Cells (Auto) Urine Bacteria (Auto) COVID-19 Eval Order CovFluRsv at [facility] SARS-CoV-2 (PCR) Influenza Type A (PCR) Influenza Type B (PCR) RSV (RT-PCR) 12/15/20 12/15/20 12/15/20 18:08 19:29 22:39 WBC RBC Hgb Hct MCV MCH MCHC RDW Std Deviation RDW Coeff of Colin Plt Count MPV Immature Gran % (Auto) Neut % (Auto) Lymph % (Auto) Cascade % (Auto) Eos % (Auto) Baso % (Auto) Neut # (Auto) Lymph # (Auto) Cascade # (Auto) Eos # (Auto) Baso # (Auto) Immature Gran # (Auto) ESR PT INR APTT PTT Ratio D-Dimer ABG pH ABG pCO2 ABG pO2 ABG HCO3 ABG O2 Saturation ABG Base Excess Jose E Test Barometric Pressure Oxygen Given Sodium Potassium Chloride Carbon Dioxide Anion Gap BUN Creatinine Est Cr Clr Drug Dosing Est GFR ( Amer) Est GFR (Non-Af Amer) BUN/Creatinine Ratio Glucose Lactate 2.8 H* Calcium Magnesium Total Bilirubin AST ALT Alkaline Phosphatase Lactate Dehydrogenase Troponin I C-Reactive Protein NT-Pro-B Natriuret Pep Total Protein Albumin Globulin Albumin/Globulin Ratio Procalcitonin Specimen Hemolysis Urine Color Dark Yellow Urine Appearance Clear Urine pH 5.0 Ur Specific L[place] 1.036 H Urine Protein 1+ H Urine Glucose (UA) Negative Urine Ketones Trace H Urine Blood Negative Urine Nitrite Negative Urine Bilirubin Negative Urine Urobilinogen Negative Ur Leukocyte Esterase Negative Urine WBC (Auto) 1-5 Urine RBC (Auto) 0-4 U Hyaline Cast (Auto) 5-10 H U Epithel Cells (Auto) 5-10 H Urine Bacteria (Auto) Negative COVID-19 Eval Order SARS-CoV-2 (PCR) POSITIVE A* Influenza Type A (PCR) Negative Influenza Type B (PCR) Negative RSV (RT-PCR) Negative 12/16/20 12/16/20 12/16/20 06:00 06:00 06:00 WBC 16.80 H RBC 4.56 L Hgb 14.0 Hct 40.3 L MCV 88.4 MCH 30.7 MCHC 34.7 RDW Std Deviation 44.5 RDW Coeff of Colin 13.8 Plt Count 288 MPV 11.1 H Immature Gran % (Auto) 0.7 Neut % (Auto) 94.7 Lymph % (Auto) 2.6 Cascade % (Auto) 1.9 Eos % (Auto) 0.0 Baso % (Auto) 0.1 Neut # (Auto) 15.93 H Lymph # (Auto) 0.43 L Cascade # (Auto) 0.32 Eos # (Auto) 0.00 Baso # (Auto) 0.01 Immature Gran # (Auto) 0.11 H ESR PT 13.0 H INR 1.3 H APTT 37.5 H PTT Ratio 1.4 D-Dimer ABG pH ABG pCO2 ABG pO2 ABG HCO3 ABG O2 Saturation ABG Base Excess Jose E Test Barometric Pressure Oxygen Given Sodium 136 Potassium 4.4 D Chloride 105 Carbon Dioxide 24 Anion Gap 7.0 BUN 26 H Creatinine 1.22 Est Cr Clr Drug Dosing 34.4 Est GFR ( Amer) 60.5 Est GFR (Non-Af Amer) 52.2 BUN/Creatinine Ratio 21.3 H Glucose 135 H Lactate Calcium 9.6 Magnesium 2.3 Total Bilirubin 0.5 AST 71 H ALT 18 Alkaline Phosphatase 109 Lactate Dehydrogenase Troponin I < 0.015 C-Reactive Protein NT-Pro-B Natriuret Pep Total Protein 6.6 Albumin 2.8 L Globulin 3.8 Albumin/Globulin Ratio 0.7 L Procalcitonin Specimen Hemolysis Urine Color Urine Appearance Urine pH Ur Specific [place] Urine Protein Urine Glucose (UA) Urine Ketones Urine Blood Urine Nitrite Urine Bilirubin Urine Urobilinogen Ur Leukocyte Esterase Urine WBC (Auto) Urine RBC (Auto) U Hyaline Cast (Auto) U Epithel Cells (Auto) Urine Bacteria (Auto) COVID-19 Eval Order SARS-CoV-2 (PCR) Influenza Type A (PCR) Influenza Type B (PCR) RSV (RT-PCR) 12/16/20 12/16/20 12/16/20 06:00 06:05 10:51 WBC RBC Hgb Hct MCV MCH MCHC RDW Std Deviation RDW Coeff of Colin Plt Count MPV Immature Gran % (Auto) Neut % (Auto) Lymph % (Auto) Cascade % (Auto) Eos % (Auto) Baso % (Auto) Neut # (Auto) Lymph # (Auto) Cascade # (Auto) Eos # (Auto) Baso # (Auto) Immature Gran # (Auto) ESR 44 H PT INR APTT PTT Ratio D-Dimer ABG pH ABG pCO2 ABG pO2 ABG HCO3 ABG O2 Saturation ABG Base Excess Jose E Test Barometric Pressure Oxygen Given Sodium Potassium Chloride Carbon Dioxide Anion Gap BUN Creatinine Est Cr Clr Drug Dosing Est GFR ( Amer) Est GFR (Non-Af Amer) BUN/Creatinine Ratio Glucose Lactate Calcium Magnesium Total Bilirubin AST ALT Alkaline Phosphatase Lactate Dehydrogenase Troponin I C-Reactive Protein 22.10 H NT-Pro-B Natriuret Pep Total Protein Albumin Globulin Albumin/Globulin Ratio Procalcitonin > 200.00 H Specimen Hemolysis Urine Color Urine Appearance Urine pH Ur Specific [place] Urine Protein Urine Glucose (UA) Urine Ketones Urine Blood Urine Nitrite Urine Bilirubin Urine Urobilinogen Ur Leukocyte Esterase Urine WBC (Auto) Urine RBC (Auto) U Hyaline Cast (Auto) U Epithel Cells (Auto) Urine Bacteria (Auto) COVID-19 Eval Order SARS-CoV-2 (PCR) Influenza Type A (PCR) Influenza Type B (PCR) RSV (RT-PCR) 12/16/20 12/16/20 12/16/20 11:35 11:50 11:50 WBC RBC Hgb Hct MCV MCH MCHC RDW Std Deviation RDW Coeff of Colin Plt Count MPV Immature Gran % (Auto) Neut % (Auto) Lymph % (Auto) Cascade % (Auto) Eos % (Auto) Baso % (Auto) Neut # (Auto) Lymph # (Auto) Cascade # (Auto) Eos # (Auto) Baso # (Auto) Immature Gran # (Auto) ESR PT INR APTT PTT Ratio D-Dimer 2390 H* ABG pH 7.48 H ABG pCO2 32 L ABG pO2 75 L ABG HCO3 23 ABG O2 Saturation 96.2 H ABG Base Excess 0.5 Jose E Test Pos Barometric Pressure 741.0 Oxygen Given 15 Sodium Potassium Chloride Carbon Dioxide Anion Gap BUN Creatinine Est Cr Clr Drug Dosing Est GFR ( Amer) Est GFR (Non-Af Amer) BUN/Creatinine Ratio Glucose Lactate Calcium Magnesium Total Bilirubin AST ALT Alkaline Phosphatase Lactate Dehydrogenase Troponin I < 0.015 C-Reactive Protein NT-Pro-B Natriuret Pep Total Protein Albumin Globulin Albumin/Globulin Ratio Procalcitonin Specimen Hemolysis Urine Color Urine Appearance Urine pH Ur Specific [place] Urine Protein Urine Glucose (UA) Urine Ketones Urine Blood Urine Nitrite Urine Bilirubin Urine Urobilinogen Ur Leukocyte Esterase Urine WBC (Auto) Urine RBC (Auto) U Hyaline Cast (Auto) U Epithel Cells (Auto) Urine Bacteria (Auto) COVID-19 Eval Order SARS-CoV-2 (PCR) Influenza Type A (PCR) Influenza Type B (PCR) RSV (RT-PCR) 12/16/20 11:50 WBC RBC Hgb Hct MCV MCH MCHC RDW Std Deviation RDW Coeff of Colin Plt Count MPV Immature Gran % (Auto) Neut % (Auto) Lymph % (Auto) Cascade % (Auto) Eos % (Auto) Baso % (Auto) Neut # (Auto) Lymph # (Auto) Cascade # (Auto) Eos # (Auto) Baso # (Auto) Immature Gran # (Auto) ESR PT INR APTT PTT Ratio D-Dimer ABG pH ABG pCO2 ABG pO2 ABG HCO3 ABG O2 Saturation ABG Base Excess Jose E Test Barometric Pressure Oxygen Given Sodium Potassium Chloride Carbon Dioxide Anion Gap BUN Creatinine Est Cr Clr Drug Dosing Est GFR ( Amer) Est GFR (Non-Af Amer) BUN/Creatinine Ratio Glucose Lactate Calcium Magnesium Total Bilirubin AST ALT Alkaline Phosphatase Lactate Dehydrogenase 438 H Troponin I C-Reactive Protein NT-Pro-B Natriuret Pep Total Protein Albumin Globulin Albumin/Globulin Ratio Procalcitonin Specimen Hemolysis Urine Color Urine Appearance Urine pH Ur Specific [place] Urine Protein Urine Glucose (UA) Urine Ketones Urine Blood Urine Nitrite Urine Bilirubin Urine Urobilinogen Ur Leukocyte Esterase Urine WBC (Auto) Urine RBC (Auto) U Hyaline Cast (Auto) U Epithel Cells (Auto) Urine Bacteria (Auto) COVID-19 Eval Order SARS-CoV-2 (PCR) Influenza Type A (PCR) Influenza Type B (PCR) RSV (RT-PCR) Medications Administered Current Inpatient Medications Acetaminophen (Acetaminophen 325 Mg Tab) 650 mg PO Q4H PRN PRN Reason: Pain or Fever Stop: 01/14/21 22:46 Albuterol (Albut/Ipratrop 3mg/0.5mg Neb 3 Ml Vial) 3 ml NEB QIDR [facility] Stop: 01/15/21 06:59 Last Admin: 12/16/20 16:08 Dose: 3 ml Documented by: Aspirin (Aspirin 81 Mg Ectab) 81 mg PO QPM RADHA Stop: 01/14/21 22:46 Last Admin: 12/16/20 00:05 Dose: 81 mg Documented by: Carbidopa/Levodopa (Carbidopa/Levodopa 25/100mg Tab) 1 tab PO TID [facility] Stop: 01/14/21 22:46 Last Admin: 12/16/20 14:49 Dose: 1 tab Documented by: Donepezil HCl (Donepezil Hcl 10 Mg Tab) 10 mg PO QAM [facility] Stop: 01/15/21 08:59 Last Admin: 12/16/20 09:05 Dose: 10 mg Documented by: Albumin Human (Albumin 25%) 12.5 gm in 50 mls @ 50 mls/hr IV BID [facility] Stop: 12/16/20 21:59 Last Infusion: 12/16/20 10:00 Dose: Infused Documented by: Dexamethasone 6 mg/ Syringe 1.5 mls @ 1 mls/min IV Q24H [facility] Stop: 01/15/21 08:59 Last Admin: 12/16/20 09:04 Dose: 1 mls/min Documented by: Remdesivir 100 mg/ Sodium (Chloride) 250 mls @ 250 mls/hr IV Q24H [facility]; Protocol Stop: 12/19/20 20:59 Azithromycin 500 mg/ Dextrose 255 mls @ 125 mls/hr IV Q24H [facility] Stop: 12/22/20 22:59 Last Infusion: 12/16/20 02:01 Dose: Infused Documented by: Piperacillin Sod/Tazobactam (Sod 3.375 gm/ Dextrose) 115 mls @ 28.75 mls/hr IV Q8H [facility]; Protocol Stop: 12/23/20 09:59 Last Infusion: 12/16/20 13:10 Dose: Infused Documented by: Miscellaneous Information (Piperacill/Tazobac Consult Active) 1 ea N/A UD PRN PRN Reason: Consult Stop: 01/14/21 20:16 Miscellaneous Information (Vancomycin Consult Active) 1 ea N/A UD PRN PRN Reason: Consult Stop: 01/15/21 11:05 Ondansetron HCl (Ondansetron Inj 2 Mg/Ml 2 Ml Vial) 4 mg IV Q6H PRN PRN Reason: Nausea Stop: 01/14/21 22:46 Sodium Chloride (Sodium Chloride 0.9% 10ml Flush) 30 ml IV Q24H [facility] Stop: 12/19/20 20:01 Vitamin D (Cholecalciferol 1,000 Units 25 Mcg Tab) [facility] Stop: 01/15/21 08:59 Last Admin: 12/16/20 09:05 Dose: 5,000 units Documented by: Zinc Sulfate (Zinc Sulfate 220 Mg Capsule) 220 mg PO QAM [facility] Stop: 01/15/21 08:59 Last Admin: 12/16/20 09:04 Dose: 220 mg Documented by: PG Care Time/CCT Total # of Minutes Spent Total Time Spent: 64 Total Time Spent with Patient: Total time spent is greater than 50% in coordination of care (as documented) at patient's floor/unit and/or counseling patient: 20 minutes on phone with family gathering more background information 44 minutes spent on examining him twice, speaking with RN multiple times and respiratory therapy reviewing chart, personally reviewing CT chest and CXR, reviewing labs, formulating plan and documentation Prolonged Care Time Prolonged Care Time: Yes Total Prolonged Care Time: 34 Coding Level of Care Code 62959 Subseq Hosp Care Lvl 3 Diagnoses Acute respiratory failure with hypoxia J96.01 Pneumonia due to COVID-19 virus U07.1; J12.82 Sepsis A41.9 CHF (congestive heart failure) I50.9 Heart failure chronicity: acute Heart failure type: unspecified CVA (cerebral vascular accident) I63.9 GERD (gastroesophageal reflux disease) K21.9 Hypothyroidism (acquired) E03.9 Dementia F03.90 Parkinson's disease G20 DVT (deep venous thrombosis) I82.409 Additional Codes Prolonged Care Time - Prolonged Care Time: Yes ([id number]) (1) CHF (congestive heart failure) Heart failure chronicity: acute Heart failure type: unspecified Qualified Code(s): I50.9 - Heart failure, unspecified
[2020-12-16] MEDS ORDERED: VANCOMYCIN CONSULT ACTIVE PRN (11:06)
[2020-12-16] MEDS ORDERED: VANCOMYCIN HCL 1,000 MG in SODIUM CHLORIDE 0.9% 250 ML IV SCH (11:15)
[2020-12-16] MEDS ORDERED: VANCOMYCIN HCL 1,500 MG in SODIUM CHLORIDE 0.9% 500 ML IV STA (11:24)
--- NOTE | 2020-12-16 11:41 | Pharmacy Report ---
Pharmacy Abx Initial Consult - Date of Service December 16, 2020 - Pharmacy Dosing Scope Date of Consult: 12/16/20 Consultation requested by: Dr. Rico Pharmacy is consulted to initiate Vancomycin and Zosyn IV dosing therapy, order appropriate labs and adjust drug dose/frequency. - Subjective The patient is a 89 year old M admitted on 12/15/20 20:16. - Objective Height: 5 ft 4 in Weight: 62.9 kg Vital Signs (Past 12hrs): Vital Signs Temp Pulse Pulse Resp BP Pulse Ox 12/16/20 11:19 36.5 C 65 17 120/75 94 12/16/20 11:14 67 67 28 H 94 12/16/20 08:04 36.6 C 62 22 123/67 93 12/16/20 08:00 56 L 12/16/20 07:32 64 64 30 H 94 12/16/20 05:00 36.5 C 60 20 124/73 94 12/16/20 03:52 62 29 H 93 12/16/20 00:00 36.4 C 66 26 H 113/64 92 Lab Results (24hrs): Laboratory Tests (24 Hours) 12/16/20 12/16/20 12/15/20 06:00 06:00 18:04 WBC 16.80 H 15.16 H Neut # (Auto) 15.93 H 13.55 H Creatinine 1.22 Est Cr Clr Drug Dosing 34.4 Procalcitonin 12/15/20 12/15/20 18:04 18:04 WBC Neut # (Auto) Creatinine 1.32 Est Cr Clr Drug Dosing 31.8 Procalcitonin > 200.00 H Micro Results: 12/15/20 18:22 Aerobic Blood Culture - Pending Blood Anaerobic Blood Culture - Pending 12/15/20 18:04 Aerobic Blood Culture - Pending Blood Anaerobic Blood Culture - Pending - Assessment & Plan Assessment * 89 year old M admitted for COVID-19 infection. * WBCs and procalcitonin both elevated. * CT of chest shows pneumonia. * BLCXs currently pending. * Started on Remdesivir as well as Vancomycin, Zosyn and Azithromycin. Plan Vancomycin IV * Estimated PK Parameters: Vd 0.7 L/kg, Federico 0.028 hr-1, t1/2 24 hr * Loading dose: 1500 mg (~24 mg/kg) * Maintenance dose will be determined once random level is obtained tomorrow morning * Goal trough level: 15 to 20 mcg/mL * Random level ordered for tomorrow morning with AM labs Piperacillin/tazobactam * 4.5 g bolus administered over 30 minutes, then 3.375 g IV extended infusion every 8 hours for CrCl greater than 20 mL/min Pharmacy will continue to follow and will adjust dose/frequency as necessary. Thank you.
[2020-12-16 12:09] LABS: Allen Test Pos (Pos); Base Excess ABG 0.5 mEq/L (-9-1.8); HCO3 ABG 23 mmol/L (19-24); Oxygen Saturation ABG 96.2 % (90-95); PCO2 ABG 32 mmHg (35-46); PO2 ABG 75 mmHg (80-95); pH ABG 7.48 (7.35-7.45)
[2020-12-16 12:49] LABS: D Dimer 2390 ug/L FEU (0-500)
[2020-12-16] MEDS: REMDESIVIR 100 MG in SODIUM CHLORIDE 0.9% 230 ML IV SCH (20:36)
[2020-12-16] MEDS: SODIUM CHLORIDE 0.9% 10ML FLUSH IV SCH (21:54)
[2020-12-16] MEDS: AZITHROMYCIN 500 MG in DEXTROSE 5% 250 ML IV SCH (22:43)
[2020-12-16] MEDS ORDERED: ALBUMIN 25% 12.5 GM/50 ML VIAL IV SCH (23:00)
[2020-12-17] MEDS: PIPERACILLIN/TAZOBACTAM 3.375 GM in DEXTROSE 5% 100 ML IV SCH ×3 (01:26→17:50)
[2020-12-17 06:30] LABS: Basophils # (auto) 0.02 K/uL (0-0.2); Basophils % (auto) 0.1 %; Hematocrit (blood only) 36.4 % (42-52); Hemoglobin 12.8 g/dL (14.0-18.0); Immature Granulocytes # (auto) 0.05 K/uL (0.00-0.02); Immature Granulocytes % (auto) 0.4 %; Lymphocytes # (auto) 0.54 K/uL (1.2-3.4); Lymphocytes % (auto) 3.8 %; Mean Corpuscular Hgb Conc 35.2 g/dL (32-36); Mean Corpuscular Volume 88.1 fL (80-100); Mean Platelet Volume 11.2 fL (7.4-10.4); Monocytes # (auto) 0.53 K/uL (0.11-0.59); Monocytes % (auto) 3.8 %; Neutrophils # (auto) 12.97 K/uL (1.4-6.5); Neutrophils % (auto) 91.9 %; Platelet Count 377 K/uL (130-400); RDW Coefficient of Variation 14.1 % (11.5-14.5); RDW Standard Deviation 46.2 fL (36.4-46.3); Red Blood Count 4.13 M/uL (4.7-6.1); White Blood Count 14.11 K/uL (4.8-10.8)
[2020-12-17 06:42] LABS: INR 1.2 (0.9-1.1); Partial Thromboplastin Ratio 1.3; Partial Thromboplastin Time 35.5 Seconds (21.0-31.0); Prothrombin Time 12.1 Seconds (9.0-12.0)
[2020-12-17 06:57] LABS: Alanine Aminotransferase 20 U/L (12-78); Aspartate Aminotransferase 41 U/L (15-37); BUN Creatinine Ratio 30.6 (10-20); Blood Urea Nitrogen 38 mg/dl (7-18); Calcium 9.3 mg/dl (8.5-10.1); Carbon Dioxide 23 mmol/L (21-32); Chloride 106 mmol/L (98-107); Creatinine Clr Calc Pharmacy 33.5 ml/min; Est GFR (African American) 58.8; Est GFR (Non-African American) 50.7; Glucose 135 mg/dl (70-99); Magnesium 2.6 mg/dl (1.8-2.4); Sodium 137 mmol/L (136-145)
[2020-12-17 07:02] LABS: Albumin Globulin Ratio 0.8 (0.9-2); Alkaline Phosphatase 95 U/L (45-117); Bilirubin,Total 0.6 mg/dl (0.2-1); Globulin 3.6 gm/dl (2.5-4.0); Total Protein 6.6 gm/dl (6.4-8.2); Troponin I < 0.015 ng/ml (0-0.045)
[2020-12-17] MEDS: ALBUT/IPRATROP 3MG/0.5MG NEB 3 ML VIAL NEB SCH ×4 (08:02→20:20)
--- NOTE | 2020-12-17 08:28 | Pharmacy Report ---
Pharmacy Abx Dose Short Note - Date of Service December 17, 2020 - Assessment & Plan Assessment 89 year old M receiving IV Vancomycin, Zosyn, and azithromycin (not a consult) for treatment of COVID pneumonia Day # 2 of antimicrobial therapy. * Blood cultures show no growth after 24 hours * MRSA nasal swab ordered today to assist with potential antibiotic de- escalation Plan Vancomycin * Random level of 10.2 mcg/mL is subtherapeutic; this level was drawn ~17 hours after loading dose. Patient is clearing Vancomycin more rapidly than anticipated and is due for a maintenance dose *now*. * Initiate Vancomycin 1000 mg (~15mg/kg) IV every 24 hours. Dosing is based on above lab and also consistent with Vancomycin AUC dosing nomogram. * Goal trough level for pneumonia : 15 to 20 mcg/mL * Trough level ordered for: 12/19/20 @ 0830 Pharmacy will continue to follow and will adjust dose/frequency as necessary. Thank you.
[2020-12-17] MEDS: dexAMETHasone 6 MG in SYRINGE 0 ML IV SCH ×2 (09:12→09:33)
[2020-12-17] MEDS: VANCOMYCIN HCL 1,000 MG in SODIUM CHLORIDE 0.9% 250 ML IV SCH ×2 (09:13→09:34)
[2020-12-17] MEDS: CARBIDOPA/LEVODOPA 25/100MG TAB PO SCH ×4 (09:17→19:31)
[2020-12-17] MEDS: CHOLECALCIFEROL 1,000 UNITS 25 MCG TAB PO SCH ×2 (09:17→09:35)
[2020-12-17] MEDS: ZINC SULFATE 220 MG CAPSULE PO SCH ×2 (09:18→09:35)
[2020-12-17] MEDS: DONEPEZIL HCL 10 MG TAB PO SCH ×2 (09:18→09:35)
--- NOTE | 2020-12-17 09:49 | Hospitalist Progress Note ---
Date of Service December 17, 2020 Assessment & Plan (1) Acute respiratory failure with hypoxia: Acute respiratory failure with hypoxemia CT chest with mild ground glass changes, not severe like you might expect with such severe hypoxia responded decent to Lasix but no further doses as he does not appear volume overload and Echo with normal EF, no mitral regurgitation no atrial septal defects to suggest shunt physiology ABG on 12/16 with PaO2 75 and his saturations were 95%, correlated with pulse ox readings currently on BIPAP 10/8 FiO2 45% attempted four times to place him on 15L oxymask, wall high flow but his saturations drop to low 80's his breathing is more labored, using belly muscles, tachypnea will transfer to ICU for intubation patient and family are in agreement with short term intubation/ventilation would not want [facility] life support (2) Pneumonia due to COVID-19 virus: Pneumonia due to COVID-19 virus- Dexamethasone 6 mg IV every morning x 10 days, day 3 today Remdesivir per protocol, day 3 today patient had his second COVID shot on 11/17/20, started to feel ill a few days later got really short of breath, cough, aches about two weeks ago was treated with antibiotics and cough suppressant tested positive for COVID on 12/15, unsure how long he has bee ill no one around him has symptoms of COVID, his and daughters have all been vaccinated seems like the most likely cause of his acute hypoxia, less inclined to think it is heart failure with normal echo and BNP of 1200 however, CT chest was not overly impressive for ground glass changes (3) Sepsis: suspected sepsis but unclear source, most logical would be COVID CT chest with no consolidation, UA was clean, no abdominal pain, no back pain, no neck pain no fever/chills per patient and his daughter confirms this his procalcitonin was incredibly high at >200, this was repeated to confirm it was not a lab error, again > 200 on 12/16 ESR is 44, CRP elevated although this could be due to COVID blood cultures show no growth at 24 hours his daughter states he has a h/o bacteremia 2 years ago requiring IV antibiotics no vegetations on TRINI, if blood cultures positive could consider TRINI but respiratory status would prohibit this at this time no fever or chills here, vitals are stable, not hypotensive, only issue is the hypoxemia WBC is 14k today with 91% PMN continue Zosyn, Zithromax, Vanco (ordered 48 hours empirically while waiting on blood cultures) (4) CHF (congestive heart failure): possible acute heart failure with preserved EF -1500mL with Albumin and Lasix on admission but echo shows EF of 65%, no mitral regurgitation, 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, no ASD hold on further Lasix for now, BP low normal and examines euvolemic (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 he is alert and oriented, understands the situation (6) GERD (gastroesophageal reflux disease): Continue pantoprazole 40 mg every morning (7) Hypothyroidism (acquired): Continue levothyroxine 100 mcg every morning (8) Dementia: Continue donepezil (9) Parkinson's disease: Continue carbidopa levodopa (10) DVT (deep venous thrombosis): History of DVT/IVC filter placement place on Lovenox for prophylaxis Admission and Anticipated Discharge Date Admission Date: December 15, 2020 Subjective patient remains on BIPAP, FiO2 is only 45%, but he cannot come off BIPAP tried again on 15L Oxymask and wall high flow and gets tachypneic, dyspneic, hypoxic to low 80's only lasted a few minutes and had to have BIPAP placed back on discussed the need for intubation and ventilation, he agreed to short term ventilatory support I called his Danielle and she agreed to intubation and ventilation but asked that I call her step daughter Kiara Craig also agrees and understands the situation, she said that she and her father talked about this situation when COVID started, he had told her he would be okay with short term intubation/ventilation I had the RN call his family one at a time so he could talk with them reviewed labs, no growth on blood cultures at 24 hours WBC 14k with 91% PMN, Cr 1.25, K 4.0 Review of Systems Review of Systems: All systems reviewed & are unremarkable except as noted in Subjective Constitutional: + fatigue and + weakness; no fever Respiratory: + cough, + dyspnea and + dyspnea on exertion; no sputum production Cardiovascular: no chest pain, no palpitations, no syncope and no edema Gastrointestinal: no abdominal pain, no nausea, no vomiting, no constipation and no diarrhea/loose stools Musculoskeletal: + muscle weakness Physical Exam Constitutional: well developed, + frail appearing and comfortable; no acute distress ENMT: Mouth: + dry oral mucous membranes (due to CPAP) Neck: trachea midline, no thyromegaly Respiratory: + uses accessory muscles (belly breathing) and + tachypneic; no respiratory distress and no labored breathing Auscultation: + diminished lung sounds; no crackles, no rales and no wheezes Cardiovascular: RRR, no murmur, no edema Gastrointestinal (Abdomen): normal bowel sounds, soft, nontender, no hepatosplenomegaly Musculoskeletal: no cyanosis or clubbing, extremities motor strength 5/5 Skin: normal turgor and + dry skin (cool to touch); no rashes Neurologic: patellar DTR's 2+ bilat, sensation intact and PERRL, EOMI, accommodation nl, no face palsy, no dysarthria Motor/Sensory: + tremor (resting tremor, right arm/hand) Psychiatric: Orientation: alert and oriented x 3 Affect: + tearful affect Lymphatic: no cervical or axillary lymphadenopathy Results & Data Results & Data ([facility]) Vital Signs (Past 12 Hours) Vital Signs Temp Pulse Pulse Resp BP Pulse Ox Pulse Ox 12/17/20 08:22 67 31 H 91 12/17/20 08:05 36.4 C L 72 19 121/64 93 12/17/20 08:02 71 28 H 92 12/17/20 03:43 36.5 C 67 30 H 118/68 91 12/17/20 02:08 68 26 H 90 12/16/20 23:59 61 12/16/20 23:47 36.6 C 80 30 H 129/77 90 12/16/20 23:14 72 24 92 12/16/20 22:47 94 Laboratory Results Laboratory Results - last 24 hr 12/16/20 12/16/20 12/16/20 06:00 06:05 10:51 WBC RBC Hgb Hct MCV MCH MCHC RDW Std Deviation RDW Coeff of Colin Plt Count MPV Immature Gran % (Auto) Neut % (Auto) Lymph % (Auto) [place] % (Auto) Eos % (Auto) Baso % (Auto) Neut # (Auto) Lymph # (Auto) [place] # (Auto) Eos # (Auto) Baso # (Auto) Immature Gran # (Auto) ESR 44 H PT INR APTT PTT Ratio D-Dimer ABG pH ABG pCO2 ABG pO2 ABG HCO3 ABG O2 Saturation ABG Base Excess Jose E Test Barometric Pressure Oxygen Given Sodium Potassium Chloride Carbon Dioxide Anion Gap BUN Creatinine Est Cr Clr Drug Dosing Est GFR ( Amer) Est GFR (Non-Af Amer) BUN/Creatinine Ratio Glucose Calcium Magnesium Total Bilirubin AST ALT Alkaline Phosphatase Lactate Dehydrogenase Troponin I C-Reactive Protein 22.10 H Total Protein Albumin Globulin Albumin/Globulin Ratio Procalcitonin > 200.00 H Random Vancomycin 12/16/20 12/16/20 12/16/20 11:35 11:50 11:50 WBC RBC Hgb Hct MCV MCH MCHC RDW Std Deviation RDW Coeff of Colin Plt Count MPV Immature Gran % (Auto) Neut % (Auto) Lymph % (Auto) [place] % (Auto) Eos % (Auto) Baso % (Auto) Neut # (Auto) Lymph # (Auto) [place] # (Auto) Eos # (Auto) Baso # (Auto) Immature Gran # (Auto) ESR PT INR APTT PTT Ratio D-Dimer 2390 H* ABG pH 7.48 H ABG pCO2 32 L ABG pO2 75 L ABG HCO3 23 ABG O2 Saturation 96.2 H ABG Base Excess 0.5 Jose E Test Pos Barometric Pressure 741.0 Oxygen Given 15 Sodium Potassium Chloride Carbon Dioxide Anion Gap BUN Creatinine Est Cr Clr Drug Dosing Est GFR ( Amer) Est GFR (Non-Af Amer) BUN/Creatinine Ratio Glucose Calcium Magnesium Total Bilirubin AST ALT Alkaline Phosphatase Lactate Dehydrogenase Troponin I < 0.015 C-Reactive Protein Total Protein Albumin Globulin Albumin/Globulin Ratio Procalcitonin Random Vancomycin 12/16/20 12/16/20 12/17/20 11:50 20:49 05:29 WBC RBC Hgb Hct MCV MCH MCHC RDW Std Deviation RDW Coeff of Colin Plt Count MPV Immature Gran % (Auto) Neut % (Auto) Lymph % (Auto) [place] % (Auto) Eos % (Auto) Baso % (Auto) Neut # (Auto) Lymph # (Auto) [place] # (Auto) Eos # (Auto) Baso # (Auto) Immature Gran # (Auto) ESR PT INR APTT PTT Ratio D-Dimer ABG pH ABG pCO2 ABG pO2 ABG HCO3 ABG O2 Saturation ABG Base Excess Jose E Test Barometric Pressure Oxygen Given Sodium 137 Potassium 4.0 Chloride 106 Carbon Dioxide 23 Anion Gap 8.0 BUN 38 H Creatinine 1.25 Est Cr Clr Drug Dosing 33.5 Est GFR ( Amer) 58.8 Est GFR (Non-Af Amer) 50.7 BUN/Creatinine Ratio 30.6 H Glucose 135 H Calcium 9.3 Magnesium 2.6 H Total Bilirubin 0.6 AST 41 H ALT 20 Alkaline Phosphatase 95 Lactate Dehydrogenase 438 H Troponin I < 0.015 < 0.015 C-Reactive Protein Total Protein 6.6 Albumin 3.0 L Globulin 3.6 Albumin/Globulin Ratio 0.8 L Procalcitonin Random Vancomycin 12/17/20 12/17/20 12/17/20 05:29 05:29 05:29 WBC 14.11 H RBC 4.13 L Hgb 12.8 L Hct 36.4 L MCV 88.1 MCH 31.0 MCHC 35.2 RDW Std Deviation 46.2 RDW Coeff of Colin 14.1 Plt Count 377 MPV 11.2 H Immature Gran % (Auto) 0.4 Neut % (Auto) 91.9 Lymph % (Auto) 3.8 [place] % (Auto) 3.8 Eos % (Auto) 0.0 Baso % (Auto) 0.1 Neut # (Auto) 12.97 H Lymph # (Auto) 0.54 L [place] # (Auto) 0.53 Eos # (Auto) 0.00 Baso # (Auto) 0.02 Immature Gran # (Auto) 0.05 H ESR PT 12.1 H INR 1.2 H APTT 35.5 H PTT Ratio 1.3 D-Dimer ABG pH ABG pCO2 ABG pO2 ABG HCO3 ABG O2 Saturation ABG Base Excess Jose E Test Barometric Pressure Oxygen Given Sodium Potassium Chloride Carbon Dioxide Anion Gap BUN Creatinine Est Cr Clr Drug Dosing Est GFR ( Amer) Est GFR (Non-Af Amer) BUN/Creatinine Ratio Glucose Calcium Magnesium Total Bilirubin AST ALT Alkaline Phosphatase Lactate Dehydrogenase Troponin I C-Reactive Protein Total Protein Albumin Globulin Albumin/Globulin Ratio Procalcitonin Random Vancomycin 10.2 Medications Administered Current Inpatient Medications Acetaminophen (Acetaminophen 325 Mg Tab) 650 mg PO Q4H PRN PRN Reason: Pain or Fever Stop: 01/14/21 22:46 Albuterol (Albut/Ipratrop 3mg/0.5mg Neb 3 Ml Vial) 3 ml NEB QIDR RADHA Stop: 01/15/21 06:59 Last Admin: 12/17/20 08:02 Dose: 3 ml Documented by: Aspirin (Aspirin 81 Mg Ectab) 81 mg PO QPM [facility] Stop: 01/14/21 22:46 Last Admin: 12/16/20 20:41 Dose: 81 mg Documented by: Carbidopa/Levodopa (Carbidopa/Levodopa 25/100mg Tab) 1 tab PO TID RAHDA Stop: 01/14/21 22:46 Last Admin: 12/17/20 09:34 Dose: Not Given Documented by: Donepezil HCl (Donepezil Hcl 10 Mg Tab) 10 mg PO QAM [facility] Stop: 01/15/21 08:59 Last Admin: 12/17/20 09:35 Dose: Not Given Documented by: Dexamethasone 6 mg/ Syringe 1.5 mls @ 1 mls/min IV Q24H [facility] Stop: 01/15/21 08:59 Last Admin: 12/17/20 09:33 Dose: 1 mls/min Documented by: Remdesivir 100 mg/ Sodium (Chloride) 250 mls @ 250 mls/hr IV Q24H [facility]; Protocol Stop: 12/19/20 20:59 Last Infusion: 12/16/20 21:54 Dose: Infused Documented by: Azithromycin 500 mg/ Dextrose 255 mls @ 125 mls/hr IV Q24H [facility] Stop: 12/22/20 22:59 Last Infusion: 12/17/20 00:50 Dose: Infused Documented by: Piperacillin Sod/Tazobactam (Sod 3.375 gm/ Dextrose) 115 mls @ 28.75 mls/hr IV Q8H [facility]; Protocol Stop: 12/23/20 09:59 Last Admin: 12/17/20 09:53 Dose: 28.8 mls/hr Documented by: Vancomycin HCl 1,000 mg/ (Sodium Chloride) 270 mls @ 200 mls/hr IV DAILY@0900 [facility] Stop: 12/23/20 08:59 Last Admin: 12/17/20 09:34 Dose: 200 mls/hr Documented by: Miscellaneous Information (Piperacill/Tazobac Consult Active) 1 ea N/A UD PRN PRN Reason: Consult Stop: 01/14/21 20:16 Miscellaneous Information (Vancomycin Consult Active) 1 ea N/A UD PRN PRN Reason: Consult Stop: 01/15/21 11:05 Ondansetron HCl (Ondansetron Inj 2 Mg/Ml 2 Ml Vial) 4 mg IV Q6H PRN PRN Reason: Nausea Stop: 01/14/21 22:46 Sodium Chloride (Sodium Chloride 0.9% 10ml Flush) 30 ml IV Q24H [facility] Stop: 12/19/20 20:01 Last Admin: 12/16/20 21:54 Dose: 30 ml Documented by: Vitamin D (Cholecalciferol 1,000 Units 25 Mcg Tab) 5,000 units PO QAM [facility] Stop: 01/15/21 08:59 Last Admin: 12/17/20 09:35 Dose: Not Given Documented by: Zinc Sulfate (Zinc Sulfate 220 Mg Capsule) 220 mg PO QAM [facility] Stop: 01/15/21 08:59 Last Admin: 12/17/20 09:35 Dose: Not Given Documented by: PG Care Time/CCT Total # of Minutes Spent Total Time Spent with Patient: Total time spent is greater than 50% in coordination of care (as documented) at patient's floor/unit and/or counseling patient: Coding Level of Care Code 63610 Subseq Hosp Care Lvl 3 Diagnoses Acute respiratory failure with hypoxia J96.01 Pneumonia due to COVID-19 virus U07.1; J12.82 Sepsis A41.9 CHF (congestive heart failure) I50.9 Heart failure chronicity: acute Heart failure type: unspecified CVA (cerebral vascular accident) I63.9 GERD (gastroesophageal reflux disease) K21.9 Hypothyroidism (acquired) E03.9 Dementia F03.90 Parkinson's disease G20 DVT (deep venous thrombosis) I82.409 (1) CHF (congestive heart failure) Heart failure chronicity: acute Heart failure type: unspecified Qualified Code(s): I50.9 - Heart failure, unspecified
[2020-12-17] MEDS: ALBUMIN 25% 12.5 GM/50 ML VIAL IV SCH ×2 (12:41→12:44)
[2020-12-17] MEDS ORDERED: dexAMETHasone 20 MG in SYRINGE 0 ML IV SCH (13:00)
[2020-12-17] MEDS: ENOXAPARIN INJ 30 MG/0.3 ML SYR SQ SCH ×2 (13:16→22:22)
[2020-12-17] MEDS ORDERED: SODIUM CHLORIDE 0.9% IV ONE (13:30)
[2020-12-17] MEDS ORDERED: TOCILIZUMAB IV ONE (13:30)
--- NOTE | 2020-12-17 13:43 | Electrocardiogram Report ---
Test Reason : Blood Pressure : / mmHG Vent. Rate : 074 BPM Atrial Rate : 074 BPM P-R Int : 196 ms QRS Dur : 080 ms QT Int : 422 ms P-R-T Axes : 043 007 039 degrees QTc Int : 468 ms Normal sinus rhythm Left atrial enlargement Borderline ECG When compared with ECG of 16-DEC-2020 07:49, No significant change Confirmed by Gilson Pelletier ([id number]) on 12/17/2020 1:43:28 PM Referred By: REFERRED SELF Confirmed By:Gilson Pelletier
--- NOTE | 2020-12-17 13:52 | Critical Care Consultation ---
Date of Consultation December 17, 2020 Assessment & Plan (1) COVID-19: 89-year-old male with a history of dementia, DVT, Parkinson's disease, GERD presenting due to COVID-19 pneumonitis and hypoxemic respiratory failure We will initiate tocilizumab therapy with a one-time dose. Discussed with pharmacy. Continue remdesivir. We will increase Decadron to 20 mg daily for 5 days and then 10 mg daily for 5 days. Inhaled budesonide started twice daily. Continue as needed diuresis. We will obtain a CRP level tomorrow morning along with a procalcitonin level. Check D-dimer tomorrow. No obvious source of bacterial infection, however, procalcitonin level greater than 200. This could be related to COVID-19 illness. Blood cultures pending. Urinalysis from 12/15/2020 with no evidence of infection. Continue with azithromycin and Zosyn for the time being. I had numerous discussions with the patient, patient's and daughters over the phone. Patient's daughter who is POA is agreeable to DNR/DNI and possibly transitioning to comfort measures only. However, the patient would like to remain a full code at this time and is clear that he would like CPR or intubation in the event that his respiratory or cardiac status worsen. He does appear to have medical decision-making capacity at this time. Continue with high flow nasal cannula to maintain saturations above 92%. Continue Lovenox 30 mg twice daily. Discussed with bedside nurse, hospitalist and respiratory therapist. CRITICAL CARE TIME - I have personally spent 49 minutes of critical care time in the direct management of this patient. This is a life/limb threatening event. This includes time spent evaluating patient, direct bedside care, chart review, placing orders, interpretation of diagnostic studies, discussion with consultants, patient, and family members, as well as other required patient management activities. This time is exclusive of all separately billable procedures, and teaching time and separate from and in addition to any other critical care service time. (2) Acute hypoxemic respiratory failure: (3) ARDS (adult respiratory distress syndrome): History of Present Illness Reason for Consultation: Hypoxemic respiratory failure secondary to COVID-19 illness Attending Physician: David Rico DO History of Present Illness 89-year-old male with a past medical history of CVA, DVT, GERD and dementia presenting to the hospital due to increasing shortness of breath. He was on antibiotics as an outpatient prescribed by his PCP with no improvement of symptoms. He was found to have a pulse oximetry reading in the 60s while in the ER. He has been trialed on CPAP, BiPAP and high flow nasal cannula on the floor with worsening hypoxemic respiratory failure and increasing paradoxical breathing. Chest x-ray and CT demonstrated evidence of glass opacities consistent with COVID-19 illness. He was vaccinated earlier last month. No vomiting, chest pain, fevers or chills. Positive on 12/15/2020. Troponins were negative x3. Procalcitonin greater than 200 on 12/16/2020. CRP of 22.1. Allergies Allergy/AdvReac Type Severity Reaction Status Date / Time No Known Allergies Allergy Verified 12/15/20 19:36 Home Medications Medication Instructions Recorded Confirmed Type acetaminophen 500 mg PO Q4H 12/15/20 12/15/20 History amoxicillin 500 mg PO BID 12/15/20 12/15/20 History aspirin [Aspirin Low Dose] 81 mg PO QPM 12/15/20 12/15/20 History benzonatate 100 mg PO Q6H 12/15/20 12/15/20 History carbidopa-levodopa 1 tab PO TID 12/15/20 12/15/20 History donepezil 10 mg PO QAM 12/15/20 12/15/20 History levothyroxine 100 mcg PO QAM 12/15/20 12/15/20 History metoprolol tartrate 12.5 mg PO BID 12/15/20 12/15/20 History pantoprazole 40 mg PO QAM 12/15/20 12/15/20 History potassium chloride 10 meq PO QAM 12/15/20 12/15/20 History Patient History Medical History CVA (cerebral vascular accident) Dementia DVT (deep venous thrombosis) GERD (gastroesophageal reflux disease) Hypothyroidism (acquired) Parkinson's disease Upper GI bleed Social History Smoking Status: Never smoker Hx Alcohol Use: No Hx Substance Use: No Preferred Language: Yoruba Communication Ability: Impaired Communication Ability Comment: 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 Currently on high flow nasal cannula ENMT: external ear and nose normal, oropharynx normal Neck: normal visual inspection Respiratory: Diminished lung sounds bilaterally. No wheezing. Cardiovascular: RRR, no murmur, no edema Gastrointestinal (Abdomen): normal bowel sounds, soft, nontender, no hepatosplenomegaly Musculoskeletal: no cyanosis or clubbing, extremities motor strength 5/5 Skin: no rashes, warm and dry Neurologic: PERRL, EOMI, accommodation nl, no face palsy, no dysarthria Psychiatric: A+Ox3, euthymic affect Results & Data Results & Data ([facility]) Vital Signs (Past 12 Hours) Vital Signs Temp Pulse Pulse Resp BP BP Pulse Ox 12/17/20 13:37 67 12/17/20 13:30 77 27 H 92 12/17/20 13:00 77 32 H 91 12/17/20 12:47 76 34 H 120/69 92 12/17/20 12:30 80 28 H 90 12/17/20 12:10 101 H 36 H 95 12/17/20 12:00 77 101 H 31 H 95 12/17/20 08:22 67 31 H 91 12/17/20 08:05 97.5 F L 72 19 121/64 93 12/17/20 08:02 71 28 H 92 12/17/20 08:00 66 12/17/20 03:43 97.7 F 67 30 H 118/68 91 12/17/20 02:08 68 26 H 90 I reviewed the vital signs, labs and imaging Coding Level of Care Code Critical Care 1st 30-74 mins Diagnoses COVID-19 U07.1 Acute hypoxemic respiratory failure J96.01 ARDS (adult respiratory distress syndrome) J80 Time Spent (min) 49
[2020-12-17] MEDS: dexAMETHasone 20 MG in DEXTROSE 5% 25 ML IV SCH (14:18)
[2020-12-17] MEDS: REMDESIVIR 100 MG in SODIUM CHLORIDE 0.9% 230 ML IV SCH (19:29)
[2020-12-17] MEDS: ASPIRIN 81 MG ECTAB PO SCH (19:30)
[2020-12-17] MEDS: SODIUM CHLORIDE 0.9% 10ML FLUSH IV SCH (19:30)
[2020-12-17] MEDS: BUDESONIDE 0.5 MG/2 ML VIAL (PULMICORT) NEB SCH (20:20)
[2020-12-17] MEDS: AZITHROMYCIN 500 MG in DEXTROSE 5% 250 ML IV SCH (22:22)
[2020-12-18] MEDS: PIPERACILLIN/TAZOBACTAM 3.375 GM in DEXTROSE 5% 100 ML IV SCH ×3 (00:45→16:45)
--- NOTE | 2020-12-18 07:16 | Hospitalist Progress Note ---
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 (2) Pneumonia due to COVID-19 virus: Pneumonia due to COVID-19 virus- Dexamethasone 6 mg IV started 12/14/20 Remdesivir per protocol, started 12/14/20 Tocilizumab was given 12/17/20 patient had his second COVID shot on 11/17/20, started to feel ill a few days later got really short of breath, cough, aches about two weeks ago was treated with antibiotics and cough suppressant tested positive for COVID on 12/15, no one around him has symptoms of COVID, his and daughters have all been vaccinated however, CT chest was not overly impressive for ground glass changes (3) Sepsis: suspected sepsis but unclear source, 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 CT chest with no consolidation, UA was clean, no abdominal pain, no back pain, no neck pain no fever/chills per patient and his daughter confirms this his procalcitonin was incredibly high at >200, this was repeated to confirm it was not a lab error, again > 200 on 12/16 ESR is 44, CRP elevated although this could be due to COVID blood cultures show no growth at 24 hours his daughter states he has a h/o bacteremia 2 years ago requiring IV antibiotics no vegetations on TTE, 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, if blood cultures positive could consider TRINI but respiratory status would prohibit this at this time continue Zosyn, Zithromax, Vanco (ordered 48 hours empirically while waiting on blood cultures) (4) CHF (congestive heart failure): possible acute heart failure with preserved EF -1500mL with Albumin and Lasix on admission but echo shows EF of 65%, no mitral regurgitation, 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, no ASD hold on further Lasix (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 he is alert and oriented, understands the situation (6) GERD (gastroesophageal reflux disease): Continue pantoprazole 40 mg every morning (7) Hypothyroidism (acquired): Continue levothyroxine 100 mcg every morning (8) Dementia: Continue donepezil (9) Parkinson's disease: Continue carbidopa levodopa (10) DVT (deep venous thrombosis): History of DVT/IVC filter placement place on Lovenox for prophylaxis Admission and Anticipated Discharge Date Admission Date: December 15, 2020 Subjective Patient was lethargic he was able to be aroused he was able to tell me his name he was able to recognize he was in the hospital he easily fell back to sleep. He is on high flow oxygen not using accessory muscles or respirations Review of Systems Review of Systems: Moderate respiratory distress and fatigue no headache, blurry or double vision no speech or swallowing issues no chest pain, pressure or palpitations Significant shortness of breath nonproductive cough no abdominal pain, nausea or vomiting, diarrhea or constipation no dysuria, hematuria or frequency no focal joint pain minor peripheral edema no back pain, CVA tenderness or radicular pain no bruising, bleeding or rashes no focal signs of weakness or numbness lethargic with altered sensation but is oriented x2 no complaints of anxiety or depression.. Physical Exam Physical Exam: The patient appeared well nourished and normally developed. Vital signs as documented. In moderate of moderate respiratory distress with high flow oxygen required Head exam is normocephalic atraumatic no scleral icterus Neck is without JVD, thyromegaly, or carotid bruits. Lungs are basilar coarse rales Cardiac exam, Rhythm is regular.. No murmurs, rubs or gallops. Abdominal exam reveals normal bowel sounds, soft non tender, no masses Extremities are trace edematous and both pedal pulses are present Neurologic exam is alert and oriented x2, no focal loss of strength able to move arms and legs independently Skin is without bruises or rashes Results & Data Results & Data ([facility]) Vital Signs (Past 12 Hours) Vital Signs Temp Pulse Pulse Resp BP Pulse Ox 12/18/20 05:48 69 26 H 144/73 H 92 12/18/20 05:00 63 34 H 92 12/18/20 04:48 97.7 F 77 18 124/78 92 12/18/20 04:25 76 26 H 89 L 12/18/20 03:48 61 28 H 140/67 93 12/18/20 02:48 71 22 130/90 91 12/18/20 01:48 61 25 H 129/70 92 12/18/20 00:48 64 25 H 130/71 92 12/17/20 23:48 76 28 H 142/68 H 94 12/17/20 22:48 77 20 132/68 93 12/17/20 22:47 75 28 H 90 12/17/20 21:58 61 32 H 134/74 94 12/17/20 20:51 84 26 H 94 12/17/20 20:47 98.1 F 86 22 146/80 H 91 12/17/20 20:36 73 26 H 93 12/17/20 20:20 85 26 H 93 12/17/20 19:42 74 33 H 141/79 H 94 PG Care Time/CCT Total # of Minutes Spent Total Time Spent with Patient: Total time spent is greater than 50% in coordination of care (as documented) at patient's floor/unit and/or counseling patient: Coding Level of Care Code 36695 Subseq Hosp Care Lvl 3 Diagnoses Acute respiratory failure with hypoxia J96.01 Pneumonia due to COVID-19 virus U07.1; J12.82 Sepsis A41.9 CHF (congestive heart failure) I50.9 Heart failure chronicity: acute Heart failure type: unspecified CVA (cerebral vascular accident) I63.9 GERD (gastroesophageal reflux disease) K21.9 Hypothyroidism (acquired) E03.9 Dementia F03.90 Parkinson's disease G20 DVT (deep venous thrombosis) I82.409 (1) CHF (congestive heart failure) Heart failure chronicity: acute Heart failure type: unspecified Qualified Code(s): I50.9 - Heart failure, unspecified
[2020-12-18 07:51] LABS: Hematocrit (blood only) 40.6 % (42-52); INR 1.2 (0.9-1.1); Mean Corpuscular Hemoglobin 30.7 pg (25-34); Mean Corpuscular Hgb Conc 34.5 g/dL (32-36); Mean Platelet Volume 10.4 fL (7.4-10.4); Partial Thromboplastin Ratio 1.2; Partial Thromboplastin Time 31.8 Seconds (21.0-31.0); Platelet Count 368 K/uL (130-400); Prothrombin Time 12.2 Seconds (9.0-12.0); RDW Coefficient of Variation 14.2 % (11.5-14.5); RDW Standard Deviation 46.4 fL (36.4-46.3); Red Blood Count 4.56 M/uL (4.7-6.1); White Blood Count 9.78 K/uL (4.8-10.8)
[2020-12-18 07:52] LABS: D Dimer 1860 ug/L FEU (0-500)
[2020-12-18 07:58] LABS: BUN Creatinine Ratio 29.6 (10-20); C Reactive Protein 7.72 mg/dl (0-0.29); Calcium 9.5 mg/dl (8.5-10.1); Creatinine Clr Calc Pharmacy 35.8 ml/min; Est GFR (African American) 63.7; Est GFR (Non-African American) 54.9; Magnesium 2.7 mg/dl (1.8-2.4)
[2020-12-18 08:01] LABS: Albumin Globulin Ratio 0.8 (0.9-2); Bilirubin,Total 0.6 mg/dl (0.2-1); Globulin 3.7 gm/dl (2.5-4.0); Phosphorus 2.2 mg/dl (2.5-4.9); Total Protein 6.7 gm/dl (6.4-8.2)
[2020-12-18] MEDS: ALBUT/IPRATROP 3MG/0.5MG NEB 3 ML VIAL NEB SCH ×4 (08:12→20:27)
[2020-12-18] MEDS: BUDESONIDE 0.5 MG/2 ML VIAL (PULMICORT) NEB SCH ×2 (08:12→20:27)
[2020-12-18 08:31] LABS: Basophils # (auto) 0.01 K/uL (0-0.2); Basophils % (auto) 0.1 %; Immature Granulocytes # (auto) 0.07 K/uL (0.00-0.02); Immature Granulocytes % (auto) 0.7 %; Lymphocytes # (auto) 0.45 K/uL (1.2-3.4); Lymphocytes % (auto) 4.6 %; Monocytes # (auto) 0.45 K/uL (0.11-0.59); Monocytes % (auto) 4.6 %
[2020-12-18] MEDS: ENOXAPARIN INJ 30 MG/0.3 ML SYR SQ SCH (08:36)
[2020-12-18] MEDS: DONEPEZIL HCL 10 MG TAB PO SCH (08:37)
[2020-12-18] MEDS: CARBIDOPA/LEVODOPA 25/100MG TAB PO SCH ×3 (08:37→19:11)
--- NOTE | 2020-12-18 08:44 | XRay Report ---
SINGLE VIEW CHEST CLINICAL HISTORY: Cough and dyspnea. FINDINGS: 2 AP, portable, upright chest radiographs are compared to chest x-ray and chest CT dated 12/15/2020. The examination is degraded by portable technique and patient rotation. The patient is status post midline sternotomy. Epicardial pacing leads are noted. The heart is enlarged noting atheroscler otic calcification of the thoracic aorta. There is pulmonary vascular congestion. Hazy interstitial o pacities throughout both lungs have modestly increased as compared to 12/15/2020. Small pleural effusio ns are suspected. No pneumothorax is seen. The skeletal structures are osteopenic. The bony thorax is grossly intact. Cholecystectomy clips are noted in the upper abdomen. IMPRESSION: 1. Cardiomegaly with evidence of congestive failure. 2. Hazy interstitial airspace opacities likely represent pulmonary edema. Correlate clinically for ev idence of a superimposed infectious/inflammatory pneumonitis. This has worsened as compared to 12/16/19. 3. Suspect small pleural effusions. ACT 112: Negative or not required by law. Electronically signed by: John Tee M.D. 12/18/2020 8:43 AM
[2020-12-18] MEDS ORDERED: ENOXAPARIN INJ 30 MG/0.3 ML SYR SQ ONE (12:00)
--- NOTE | 2020-12-18 12:53 | Critical Care Progress Note ---
Date of Service December 18, 2020 Assessment & Plan (1) Acute hypoxemic respiratory failure: Reason Critically Ill: Severe hypoxemia respiratory failure in the setting COVID-19 pneumonia PLAN: Resp: Acute respiratory distress syndrome -Received monoclonal antibody, on remdesivir and steroids -Intubation if necessary, currently saturating adequately on high flow nasal cannula Heme: DVT prophylaxis: Lovenox 60 mg every 12: Therapeutic dose given elevated D-dimer Endocrine: ICU hyperglycemia protocol Vascular access: Peripheral IVs Code Status: Full code Disposition: ICU Present on Admission?: Yes (2) ARDS (adult respiratory distress syndrome): Admission and Anticipated Discharge Date Admission Date: December 15, 2020 Physical Exam Physical Exam: General: Alert. nontoxic. Skin: Warm, dry, Head: Atraumatic Ears, nose, mouth and throat: airway patent Cardiovascular: Normal peripheral perfusion Respiratory: no respiratory distress Gastrointestinal: Non distended Musculoskeletal: No deformity Results & Data Results & Data ([facility]) Vital Signs (Past 12 Hours) Vital Signs Temp Pulse Pulse Resp BP Pulse Ox 12/18/20 12:19 59 L 20 89 L 12/18/20 10:00 52 L 23 95 12/18/20 09:48 56 L 22 143/81 H 96 12/18/20 09:03 60 26 H 135/83 92 12/18/20 09:00 56 L 22 95 12/18/20 08:12 56 L 22 92 12/18/20 08:01 51 L 20 93 12/18/20 08:00 36.8 C 54 L 29 H 94 12/18/20 07:00 55 L 26 H 94 12/18/20 05:48 69 26 H 144/73 H 92 12/18/20 05:00 63 34 H 92 12/18/20 04:48 36.5 C 77 18 124/78 92 12/18/20 04:25 76 26 H 89 L 12/18/20 03:48 61 28 H 140/67 93 12/18/20 02:48 71 22 130/90 91 12/18/20 01:48 61 25 H 129/70 92 Laboratory Results 12/18/20 12/18/20 12/18/20 Range/Units 07:19 07:19 07:19 WBC 9.78 (4.8-10.8) K/uL RBC 4.56 L (4.7-6.1) M/uL Hgb 14.0 (14.0-18.0) g/dL Hct 40.6 L (42-52) % MCV 89.0 (80-100) fL MCH 30.7 (25-34) pg MCHC 34.5 (32-36) g/dL RDW Std Deviation 46.4 H (36.4-46.3) fL RDW Coeff of Colin 14.2 (11.5-14.5) % Plt Count 368 (130-400) K/uL MPV 10.4 (7.4-10.4) fL Immature Gran % (Auto) 0.7 % Neut % (Auto) 90.0 % Lymph % (Auto) 4.6 % Keith % (Auto) 4.6 % Eos % (Auto) 0.0 % Baso % (Auto) 0.1 % Neut # (Auto) 8.80 H (1.4-6.5) K/uL Lymph # (Auto) 0.45 L (1.2-3.4) K/uL Keith # (Auto) 0.45 (0.11-0.59) K/uL Eos # (Auto) 0.00 (0-0.5) K/uL Baso # (Auto) 0.01 (0-0.2) K/uL Immature Gran # (Auto) 0.07 H (0.00-0.02) K/uL PT 12.2 H (9.0-12.0) Seconds INR 1.2 H (0.9-1.1) APTT 31.8 H (21.0-31.0) Seconds PTT Ratio 1.2 D-Dimer (0-500) ug/L FEU Sodium (136-145) mmol/L Potassium (3.5-5.1) mmol/L Chloride (98-107) mmol/L Carbon Dioxide (21-32) mmol/L Anion Gap (3-11) BUN (7-18) mg/dl Creatinine (0.6-1.4) mg/dl Est Cr Clr Drug Dosing ml/min Est GFR ( Amer) Est GFR (Non-Af Amer) BUN/Creatinine Ratio (10-20) Glucose (70-99) mg/dl Calcium (8.5-10.1) mg/dl Phosphorus (2.5-4.9) mg/dl Magnesium (1.8-2.4) mg/dl Total Bilirubin (0.2-1) mg/dl AST (15-37) U/L ALT (12-78) U/L Alkaline Phosphatase (45-117) U/L C-Reactive Protein (0-0.29) mg/dl Total Protein (6.4-8.2) gm/dl Albumin (3.4-5.0) gm/dl Globulin (2.5-4.0) gm/dl Albumin/Globulin Ratio (0.9-2) Procalcitonin 130.68 H (0-0.5) ng/ml 12/18/20 12/18/20 Range/Units 07:19 07:19 WBC (4.8-10.8) K/uL RBC (4.7-6.1) M/uL Hgb (14.0-18.0) g/dL Hct (42-52) % MCV (80-100) fL MCH (25-34) pg MCHC (32-36) g/dL RDW Std Deviation (36.4-46.3) fL RDW Coeff of Colin (11.5-14.5) % Plt Count (130-400) K/uL MPV (7.4-10.4) fL Immature Gran % (Auto) % Neut % (Auto) % Lymph % (Auto) % Keith % (Auto) % Eos % (Auto) % Baso % (Auto) % Neut # (Auto) (1.4-6.5) K/uL Lymph # (Auto) (1.2-3.4) K/uL Keith # (Auto) (0.11-0.59) K/uL Eos # (Auto) (0-0.5) K/uL Baso # (Auto) (0-0.2) K/uL Immature Gran # (Auto) (0.00-0.02) K/uL PT (9.0-12.0) Seconds INR (0.9-1.1) APTT (21.0-31.0) Seconds PTT Ratio D-Dimer 1860 H* (0-500) ug/L FEU Sodium 140 (136-145) mmol/L Potassium 4.0 (3.5-5.1) mmol/L Chloride 107 (98-107) mmol/L Carbon Dioxide 25 (21-32) mmol/L Anion Gap 7.0 (3-11) BUN 35 H (7-18) mg/dl Creatinine 1.17 (0.6-1.4) mg/dl Est Cr Clr Drug Dosing 35.8 ml/min Est GFR ( Amer) 63.7 Est GFR (Non-Af Amer) 54.9 BUN/Creatinine Ratio 29.6 H (10-20) Glucose 147 H (70-99) mg/dl Calcium 9.5 (8.5-10.1) mg/dl Phosphorus 2.2 L (2.5-4.9) mg/dl Magnesium 2.7 H (1.8-2.4) mg/dl Total Bilirubin 0.6 (0.2-1) mg/dl AST 27 (15-37) U/L ALT 15 (12-78) U/L Alkaline Phosphatase 100 (45-117) U/L C-Reactive Protein 7.72 H (0-0.29) mg/dl Total Protein 6.7 (6.4-8.2) gm/dl Albumin 3.0 L (3.4-5.0) gm/dl Globulin 3.7 (2.5-4.0) gm/dl Albumin/Globulin Ratio 0.8 L (0.9-2) Procalcitonin (0-0.5) ng/ml Coding Level of Care Code 17082 Subseq Hosp Care Lv 2 Diagnoses Acute hypoxemic respiratory failure J96.01 ARDS (adult respiratory distress syndrome) J80
[2020-12-18] MEDS: dexAMETHasone 20 MG in DEXTROSE 5% 25 ML IV SCH (13:26)
[2020-12-18] MEDS: THIAMINE HCL 100 MG TAB PO SCH (13:27)
[2020-12-18] MEDS: ASPIRIN 81 MG ECTAB PO SCH (19:11)
[2020-12-18] MEDS: SODIUM CHLORIDE 0.9% 10ML FLUSH IV SCH (19:12)
[2020-12-18] MEDS: REMDESIVIR 100 MG in SODIUM CHLORIDE 0.9% 230 ML IV SCH (19:14)
[2020-12-18] MEDS: AZITHROMYCIN 500 MG in DEXTROSE 5% 250 ML IV SCH (23:27)
[2020-12-18] MEDS: ENOXAPARIN INJ 60 MG/0.6 ML SYR SQ SCH (23:27)
[2020-12-19] MEDS: PIPERACILLIN/TAZOBACTAM 3.375 GM in DEXTROSE 5% 100 ML IV SCH ×3 (01:44→17:13)
[2020-12-19] MEDS: LEVOTHYROXINE SODIUM 100 MCG TABLET PO SCH (04:08)
[2020-12-19 05:38] LABS: Basophils # (auto) 0.02 K/uL (0-0.2); Basophils % (auto) 0.3 %; Hematocrit (blood only) 42.5 % (42-52); Hemoglobin 14.7 g/dL (14.0-18.0); Immature Granulocytes # (auto) 0.07 K/uL (0.00-0.02); Immature Granulocytes % (auto) 0.9 %; Lymphocytes # (auto) 0.84 K/uL (1.2-3.4); Lymphocytes % (auto) 11.2 %; Mean Corpuscular Hemoglobin 30.9 pg (25-34); Mean Corpuscular Hgb Conc 34.6 g/dL (32-36); Mean Corpuscular Volume 89.5 fL (80-100); Mean Platelet Volume 10.2 fL (7.4-10.4); Monocytes # (auto) 0.18 K/uL (0.11-0.59); Monocytes % (auto) 2.4 %; Neutrophils # (auto) 6.39 K/uL (1.4-6.5); Neutrophils % (auto) 85.2 %; Platelet Count 397 K/uL (130-400); RDW Standard Deviation 46.5 fL (36.4-46.3); Red Blood Count 4.75 M/uL (4.7-6.1)
[2020-12-19 05:47] LABS: INR 1.2 (0.9-1.1); Prothrombin Time 11.9 Seconds (9.0-12.0)
[2020-12-19 06:05] LABS: BUN Creatinine Ratio 31.3 (10-20); Calcium 9.4 mg/dl (8.5-10.1); Creatinine Clr Calc Pharmacy 36.1 ml/min; Est GFR (African American) 64.4; Est GFR (Non-African American) 55.5; Magnesium 2.7 mg/dl (1.8-2.4); Phosphorus 3.1 mg/dl (2.5-4.9); Potassium 4.1 mmol/L (3.5-5.1)
[2020-12-19] MEDS: ALBUT/IPRATROP 3MG/0.5MG NEB 3 ML VIAL NEB SCH ×3 (07:18→19:19)
[2020-12-19] MEDS: BUDESONIDE 0.5 MG/2 ML VIAL (PULMICORT) NEB SCH ×2 (07:18→19:19)
[2020-12-19] MEDS: PANTOprazole 40 MG TAB PO SCH (07:43)
[2020-12-19] MEDS: DONEPEZIL HCL 10 MG TAB PO SCH (07:43)
[2020-12-19] MEDS: THIAMINE HCL 100 MG TAB PO SCH (07:43)
[2020-12-19] MEDS: CARBIDOPA/LEVODOPA 25/100MG TAB PO SCH ×3 (07:43→21:25)
--- NOTE | 2020-12-19 08:16 | XRay Report ---
SINGLE VIEW CHEST CLINICAL HISTORY: Cough and dyspnea. FINDINGS: In AP, portable, upright chest radiograph is compared to chest x-ray dated 12/18/2020 and cor related with chest CT dated 12/15/2020. The examination is degraded by portable technique and patient r otation. The patient is status post midline sternotomy. Epicardial pacing leads are noted. The heart is enlarged noting atherosclerotic calcification of the thoracic aorta. There is pulmonary vascular c ongestion. Hazy interstitial opacities throughout both lungs are unchanged from yesterday. Small pleu ral effusions are suspected. No pneumothorax is seen. The skeletal structures are osteopenic. The bon y thorax is grossly intact. Cholecystectomy clips an IVC filter are noted in the upper abdomen. IMPRESSION: 1. Cardiomegaly with evidence of congestive failure. 2. Hazy interstitial airspace opacities likely represent pulmonary edema. Correlate clinically for ev idence of a superimposed infectious/inflammatory pneumonitis. This is unchanged from yesterday. 3. Suspect small pleural effusions. ACT 112: Negative or not required by law. Electronically signed by: John Tee M.D. 12/19/2020 8:14 AM
[2020-12-19] MEDS ORDERED: VANCOMYCIN TROUGH ONE (08:30)
[2020-12-19] MEDS ORDERED: PHARMACY GLYCEMIC MGMT CONSULT PRN (10:31)
[2020-12-19] MEDS ORDERED: CARBOHYDRATES FOR HYPOGLYCEMIA PO PRN (10:45)
[2020-12-19] MEDS ORDERED: DEXTROSE 50% 50 ML SYRINGE IV PRN (10:45)
[2020-12-19] MEDS ORDERED: GLUCOSE 40% GEL 15 GM TUBE PO PRN (10:45)
[2020-12-19] MEDS ORDERED: GLUCOSE 10 TABS/TUBE PO PRN (10:45)
[2020-12-19] MEDS ORDERED: INSULIN HUMAN NPH SC ONE ×2 (10:45→16:30)
[2020-12-19] MEDS ORDERED: GLUCAGON FOR INJ 1 MG VIAL IM PRN (10:45)
--- NOTE | 2020-12-19 10:53 | Hospitalist Progress Note ---
Date of Service December 19, 2020 Assessment & Plan (1) Acute respiratory failure with hypoxia: Acute respiratory failure with hypoxemia secondary to Covid pneumonia Slight improvement or stabilization without escalation of ventilation. 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 (2) Pneumonia due to COVID-19 virus: Pneumonia due to COVID-19 virus- Dexamethasone 6 mg IV started 12/14/20 Remdesivir per protocol, started 12/14/20 Tocilizumab was given 12/17/20 Patient is on high-dose dexamethasone 20 for 5 days then 10 for 5 days for inflammatory respiratory response patient had his second COVID shot on 11/17/20, started to feel ill a few days later got really short of breath, cough, aches about two weeks ago was treated with antibiotics and cough suppressant tested positive for COVID on 12/15, no one around him has symptoms of COVID, his and daughters have all been vaccinated however, CT chest was not overly impressive for ground glass changes (3) Sepsis: suspected sepsis but unclear source, significantly high procalcitonin speaks bacterial infections however none were confirmed, 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 as the primary personal driver however will continue antibiotics at this time CT chest with no consolidation, UA was clean, no abdominal pain, no back pain, no neck pain no fever/chills per patient and his daughter confirms this his daughter states he has a h/o bacteremia 2 years ago requiring IV antibiotics no vegetations on TTE, 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, if blood cultures positive could consider TRINI but respiratory status would prohibit this at this time continue Zosyn, Zithromax, Vanco (ordered 48 hours empirically while waiting on blood cultures) vancomycin therapy has stopped (4) CHF (congestive heart failure): possible acute heart failure with preserved EF -1500mL with Albumin and Lasix on admission but echo shows EF of 65%, no mitral regurgitation, 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, no ASD hold on further Lasix appears euvolemic at this time (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 He remains in significant respiratory distress requiring high flow oxygen and a high fraction of inspired oxygen. He is not using accessory muscles although he desaturates quickly with minimal movement around the room. He has no appetite otherwise without other additional focal complaints Review of Systems Review of Systems: Moderate respiratory distress and fatigue no headache, blurry or double vision no speech or swallowing issues no chest pain, pressure or palpitations Significant shortness of breath nonproductive cough no abdominal pain, nausea or vomiting, diarrhea or constipation no dysuria, hematuria or frequency no focal joint pain minor peripheral edema no back pain, CVA tenderness or radicular pain no bruising, bleeding or rashes no focal signs of weakness or numbness lethargic with altered sensation but is oriented x2 no complaints of anxiety or depression.. Physical Exam Physical Exam: The patient appeared well nourished and normally developed. Vital signs as documented. In moderate of moderate respiratory distress with high flow oxygen required Head exam is normocephalic atraumatic no scleral icterus Neck is without JVD, thyromegaly, or carotid bruits. Lungs are basilar coarse rales Cardiac exam, Rhythm is regular.. No murmurs, rubs or gallops. Abdominal exam reveals normal bowel sounds, soft non tender, no masses Extremities are trace edematous and both pedal pulses are present Neurologic exam is alert and oriented x2, no focal loss of strength able to move arms and legs independently Skin is without bruises or rashes Results & Data Results & Data ([facility]) Vital Signs (Past 12 Hours) Vital Signs Temp Pulse Pulse Resp BP Pulse Ox 12/19/20 08:00 73 22 96 12/19/20 07:48 97.9 F 56 L 20 149/70 H 91 12/19/20 07:22 54 L 20 96 12/19/20 07:00 52 L 24 100 12/19/20 06:15 63 22 162/84 H 99 12/19/20 05:48 52 L 14 167/75 H 97 12/19/20 04:48 97.5 F L 55 L 23 152/92 H 92 12/19/20 03:48 53 L 23 140/71 93 12/19/20 03:38 68 22 90 12/19/20 02:49 50 L 21 140/71 90 12/19/20 02:48 51 L 21 132/72 92 12/19/20 01:48 54 L 23 139/77 92 12/19/20 00:48 97.3 F L 55 L 22 158/72 H 93 12/18/20 23:48 62 25 H 132/72 93 12/18/20 23:24 61 22 90 PG Care Time/CCT Total # of Minutes Spent Total Time Spent with Patient: Total time spent is greater than 50% in coordination of care (as documented) at patient's floor/unit and/or counseling patient: Coding Level of Care Code 12094 Subseq Hosp Care Lvl 3 Diagnoses Acute respiratory failure with hypoxia J96.01 Pneumonia due to COVID-19 virus U07.1; J12.82 Sepsis A41.9 CHF (congestive heart failure) I50.9 Heart failure chronicity: acute Heart failure type: unspecified CVA (cerebral vascular accident) I63.9 GERD (gastroesophageal reflux disease) K21.9 Hypothyroidism (acquired) E03.9 Dementia F03.90 Parkinson's disease G20 DVT (deep venous thrombosis) I82.409 (1) CHF (congestive heart failure) Heart failure chronicity: acute Heart failure type: unspecified Qualified Code(s): I50.9 - Heart failure, unspecified
[2020-12-19] MEDS: ENOXAPARIN INJ 60 MG/0.6 ML SYR SQ SCH ×2 (13:35→23:34)
[2020-12-19] MEDS: INSULIN ASPART 100 UNITS/ML 3 ML PEN SC SCH ×3 (13:41→21:24)
[2020-12-19] MEDS: dexAMETHasone 20 MG in DEXTROSE 5% 25 ML IV SCH (14:18)
--- NOTE | 2020-12-19 14:21 | Pharmacy Report ---
Pharmacy Glycemic Short Note 2 - Date of Service December 19, 2020 - Glycemic Short BSG Results (Last 24 hours): 12/19/20 12/19/20 05:03 13:12 Glucose 183 H POC Glucose 162 H OUTPATIENT ANTIDIABETIC REGIMEN: * N/A * A1c = 6.2% ASSESSMENT: * Patient admitted for COVID19 viral pna with probable superimposed bacterial pneumonia * A1c is consistent with impaired glucose tolerance / "pre-diabetes" * He has been receiving IV steroids (DEXA-ARDS regimen) as well as broad spectrum abx. He was x-ferred out of ICU this AM. He is currently tolerating a diet. * Fasting AM BSGs have been elevated on chemistry. Post-prandial BSGs have not been evaluated on this steroid regimen. * Of note, he has been receiving the IV dexamethasone in the afternoon instead of AM. This will be retimed to allow for AM administration * Will initiate NPH + Novolog basal/bolus regimen PLAN FOR INPATIENT GLYCEMIC CONTROL: * Basal insulin * NPH 10 units SQ x 1 this afternoon after dexamethasone admin, then 20mg (~0.3mg/kg) SQ Q AM with IV dexamethasone * Bolus insulin * NovoLog per scale ACHS or Q6hrs while NPO * Goal Range: Low 120 mg/dL - High 150 mg/dL * Correction Factor: 30 mg/dL/unit * Nutritional / Prandial insulin per carb ratio of 1 unit per 10 grams CHO consumed PLAN FOR DISCHARGE: * given A1c of less than 6.5, no anti-diabetic pharmacotherapy warranted at this time
[2020-12-19] MEDS: REMDESIVIR 100 MG in SODIUM CHLORIDE 0.9% 230 ML IV SCH (21:24)
[2020-12-19] MEDS: SODIUM CHLORIDE 0.9% 10ML FLUSH IV SCH (21:24)
[2020-12-19] MEDS: ASPIRIN 81 MG ECTAB PO SCH (21:24)
[2020-12-19] MEDS: AZITHROMYCIN 500 MG in DEXTROSE 5% 250 ML IV SCH (23:34)
[2020-12-20] MEDS: PIPERACILLIN/TAZOBACTAM 3.375 GM in DEXTROSE 5% 100 ML IV SCH ×3 (02:44→18:08)
[2020-12-20] MEDS: LEVOTHYROXINE SODIUM 100 MCG TABLET PO SCH (06:08)
[2020-12-20 07:34] LABS: Basophils # (auto) 0.01 K/uL (0-0.2); Basophils % (auto) 0.1 %; Hematocrit (blood only) 39.1 % (42-52); Hemoglobin 13.5 g/dL (14.0-18.0); Immature Granulocytes # (auto) 0.11 K/uL (0.00-0.02); Immature Granulocytes % (auto) 1.1 %; Lymphocytes # (auto) 0.59 K/uL (1.2-3.4); Mean Corpuscular Hemoglobin 30.9 pg (25-34); Mean Corpuscular Hgb Conc 34.5 g/dL (32-36); Mean Corpuscular Volume 89.5 fL (80-100); Mean Platelet Volume 10.8 fL (7.4-10.4); Monocytes # (auto) 0.52 K/uL (0.11-0.59); Monocytes % (auto) 5.3 %; Neutrophils # (auto) 8.62 K/uL (1.4-6.5); Neutrophils % (auto) 87.5 %; Platelet Count 399 K/uL (130-400); RDW Coefficient of Variation 14.3 % (11.5-14.5); RDW Standard Deviation 47.3 fL (36.4-46.3); Red Blood Count 4.37 M/uL (4.7-6.1); White Blood Count 9.85 K/uL (4.8-10.8)
[2020-12-20] MEDS: ALBUT/IPRATROP 3MG/0.5MG NEB 3 ML VIAL NEB SCH ×2 (07:55→19:20)
[2020-12-20] MEDS: BUDESONIDE 0.5 MG/2 ML VIAL (PULMICORT) NEB SCH ×2 (07:55→19:20)
[2020-12-20 07:58] LABS: BUN Creatinine Ratio 33.7 (10-20); Creatinine Clr Calc Pharmacy 41.5 ml/min; Est GFR (African American) 76.1; Est GFR (Non-African American) 65.6; Magnesium 2.6 mg/dl (1.8-2.4); Potassium 4.1 mmol/L (3.5-5.1)
[2020-12-20 08:02] LABS: Phosphorus 2.5 mg/dl (2.5-4.9)
[2020-12-20] MEDS: INSULIN ASPART 100 UNITS/ML 3 ML PEN SC SCH ×4 (09:02→21:06)
[2020-12-20] MEDS: DONEPEZIL HCL 10 MG TAB PO SCH (09:06)
[2020-12-20] MEDS: CARBIDOPA/LEVODOPA 25/100MG TAB PO SCH ×3 (09:07→20:52)
[2020-12-20] MEDS: PANTOprazole 40 MG TAB PO SCH (09:07)
[2020-12-20] MEDS: THIAMINE HCL 100 MG TAB PO SCH (09:08)
[2020-12-20] MEDS: dexAMETHasone 20 MG in DEXTROSE 5% 25 ML IV SCH (09:40)
[2020-12-20] MEDS: INSULIN HUMAN NPH SC SCH (09:46)
[2020-12-20] MEDS: ENOXAPARIN INJ 60 MG/0.6 ML SYR SQ SCH ×2 (13:22→23:14)
--- NOTE | 2020-12-20 18:51 | Hospitalist Progress Note ---
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 (2) Pneumonia due to COVID-19 virus: Pneumonia due to COVID-19 virus- Dexamethasone 6 mg IV started 12/14/20 Remdesivir per protocol, started 12/14/20 Tocilizumab was given 12/17/20 Patient is on high-dose dexamethasone 20 for 5 days then 10 for 5 days for inflammatory respiratory response patient had his second COVID shot on 11/17/20, started to feel ill a few days later got really short of breath, cough, aches about two weeks ago was treated with antibiotics and cough suppressant tested positive for COVID on 12/15, no one around him has symptoms of COVID, his and daughters have all been vaccinated however, CT chest was not overly impressive for ground glass changes (3) Sepsis: suspected sepsis but unclear source, significantly high procalcitonin speaks bacterial infections however none were confirmed, 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 at this time CT chest with no consolidation, UA was clean, no abdominal pain, no back pain, no neck pain no fever/chills per patient and his daughter confirms this his daughter states he has a h/o bacteremia 2 years ago requiring IV antibiotics no vegetations on TTE, 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, if blood cultures positive could consider TRINI but respiratory status would prohibit this at this time continue Zosyn, Zithromax, Vanco (ordered 48 hours empirically while waiting on blood cultures) vancomycin therapy has stopped blood cultures remain negative if no infectious etiology seen will downgrade to just Zithromax on 12/21/2020 (4) CHF (congestive heart failure): possible acute heart failure with preserved EF -1500mL with Albumin and Lasix on admission but echo shows EF of 65%, no mitral regurgitation, 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, no ASD hold on further Lasix appears euvolemic at this time (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 he is alert and oriented x2, understands the situation (6) GERD (gastroesophageal reflux disease): Continue pantoprazole 40 mg every morning (7) Hypothyroidism (acquired): Continue levothyroxine 100 mcg every morning (8) Dementia: Continue donepezil (9) Parkinson's disease: Continue carbidopa levodopa (10) DVT (deep venous thrombosis): History of DVT/IVC filter placement place on Lovenox for prophylaxis with Covid infection Updated 12/19 Admission and Anticipated Discharge Date Admission Date: December 15, 2020 Subjective Patient has improved his declining oxygen requirement still is on 10 L wall high flow no longer on Vapotherm he is demented he has some minor tremulousness from his Parkinson's disease but overall he has no particular focal complaints Review of Systems Review of Systems: Moderate respiratory distress and fatigue no headache, blurry or double vision no speech or swallowing issues no chest pain, pressure or palpitations Significant shortness of breath nonproductive cough no abdominal pain, nausea or vomiting, diarrhea or constipation no dysuria, hematuria or frequency no focal joint pain minor peripheral edema no back pain, CVA tenderness or radicular pain no bruising, bleeding or rashes no focal signs of weakness or numbness improving lethargy is present consistent with Parkinson's disease no complaints of anxiety or depression.. Physical Exam Physical Exam: The patient appeared well nourished and normally developed. Vital signs as documented. In moderate of moderate respiratory distress with high flow oxygen required Head exam is normocephalic atraumatic no scleral icterus Neck is without JVD, thyromegaly, or carotid bruits. Lungs continue with basilar coarse rales Cardiac exam, Rhythm is regular.. No murmurs, rubs or gallops. Abdominal exam reveals normal bowel sounds, soft non tender, no masses Extremities are trace edematous and both pedal pulses are present Neurologic exam is alert and oriented x2, no focal loss of strength able to move arms and legs independently resting tremor Skin is without bruises or rashes Results & Data Results & Data ([facility]) Vital Signs (Past 12 Hours) Vital Signs Temp Pulse Resp BP BP Pulse Ox 12/20/20 15:04 98.2 F 77 20 141/81 H 94 12/20/20 10:55 98.1 F 83 16 123/65 98 04/07/21 08:05 97.5 F L 66 18 126/55 L 93 12/20/20 07:55 60 20 94 PG Care Time/CCT Total # of Minutes Spent Total Time Spent with Patient: Total time spent is greater than 50% in coordination of care (as documented) at patient's floor/unit and/or counseling patient: Coding Level of Care Code 61554 Subseq Hosp Care Lvl 2 Diagnoses Acute respiratory failure with hypoxia J96.01 Pneumonia due to COVID-19 virus U07.1; J12.82 Sepsis A41.9 CHF (congestive heart failure) I50.9 Heart failure chronicity: acute Heart failure type: unspecified CVA (cerebral vascular accident) I63.9 GERD (gastroesophageal reflux disease) K21.9 Hypothyroidism (acquired) E03.9 Dementia F03.90 Parkinson's disease G20 DVT (deep venous thrombosis) I82.409 (1) CHF (congestive heart failure) Heart failure chronicity: acute Heart failure type: unspecified Qualified Code(s): I50.9 - Heart failure, unspecified
[2020-12-20] MEDS: ASPIRIN 81 MG ECTAB PO SCH (20:52)
[2020-12-21] MEDS: PIPERACILLIN/TAZOBACTAM 3.375 GM in DEXTROSE 5% 100 ML IV SCH ×2 (01:09→09:08)
[2020-12-21] MEDS: LEVOTHYROXINE SODIUM 100 MCG TABLET PO SCH (03:07)
[2020-12-21] MEDS: BUDESONIDE 0.5 MG/2 ML VIAL (PULMICORT) NEB SCH ×2 (07:10→19:49)
[2020-12-21] MEDS: ALBUT/IPRATROP 3MG/0.5MG NEB 3 ML VIAL NEB SCH ×2 (07:10→19:49)
[2020-12-21 07:26] LABS: Basophils # (auto) 0.01 K/uL (0-0.2); Basophils % (auto) 0.1 %; Eosinophils # (auto) 0.03 K/uL (0-0.5); Eosinophils % (auto) 0.2 %; Hematocrit (blood only) 39.1 % (42-52); Hemoglobin 13.7 g/dL (14.0-18.0); Immature Granulocytes # (auto) 0.19 K/uL (0.00-0.02); Immature Granulocytes % (auto) 1.5 %; Lymphocytes # (auto) 0.67 K/uL (1.2-3.4); Lymphocytes % (auto) 5.1 %; Mean Corpuscular Hemoglobin 30.9 pg (25-34); Mean Corpuscular Volume 88.3 fL (80-100); Mean Platelet Volume 10.3 fL (7.4-10.4); Monocytes # (auto) 0.56 K/uL (0.11-0.59); Monocytes % (auto) 4.3 %; Neutrophils # (auto) 11.62 K/uL (1.4-6.5); Neutrophils % (auto) 88.8 %; Platelet Count 413 K/uL (130-400); RDW Coefficient of Variation 14.1 % (11.5-14.5); RDW Standard Deviation 46.1 fL (36.4-46.3); Red Blood Count 4.43 M/uL (4.7-6.1); White Blood Count 13.08 K/uL (4.8-10.8)
[2020-12-21 07:54] LABS: BUN Creatinine Ratio 30.6 (10-20); Calcium 9.2 mg/dl (8.5-10.1); Creatinine Clr Calc Pharmacy 39.6 ml/min; Est GFR (African American) 71.8; Est GFR (Non-African American) 61.9; Magnesium 2.5 mg/dl (1.8-2.4); Potassium 4.2 mmol/L (3.5-5.1)
[2020-12-21 07:55] LABS: Phosphorus 2.9 mg/dl (2.5-4.9)
[2020-12-21] MEDS: DONEPEZIL HCL 10 MG TAB PO SCH (08:16)
[2020-12-21] MEDS: THIAMINE HCL 100 MG TAB PO SCH (08:16)
[2020-12-21] MEDS: PANTOprazole 40 MG TAB PO SCH (08:16)
[2020-12-21] MEDS: CARBIDOPA/LEVODOPA 25/100MG TAB PO SCH ×3 (08:16→20:24)
[2020-12-21] MEDS: INSULIN ASPART 100 UNITS/ML 3 ML PEN SC SCH ×4 (08:20→20:24)
[2020-12-21] MEDS: dexAMETHasone 20 MG in DEXTROSE 5% 25 ML IV SCH (09:08)
[2020-12-21] MEDS: INSULIN HUMAN NPH SC SCH (09:09)
[2020-12-21] MEDS: ENOXAPARIN INJ 60 MG/0.6 ML SYR SQ SCH (11:53)
--- NOTE | 2020-12-21 12:26 | Pharmacy Report ---
Pharmacy Glycemic Short Note 2 - Date of Service December 21, 2020 - Glycemic Short BSG Results (Last 24 hours): 12/20/20 12/20/20 12/21/20 16:54 19:58 06:47 Glucose 103 H POC Glucose 185 H 215 H 12/21/20 12/21/20 07:22 11:51 Glucose POC Glucose 112 H 145 H OUTPATIENT ANTIDIABETIC REGIMEN: * N/A * A1c = 6.2% ASSESSMENT: 12/21 * Fasting BSG well controlled. Mild post prandial hyperglycemia noted, will tighten NovoLog today * Patient continues on a diet * IV dexamethasone decreases from 20mg daily to 10 tomorrow, may consider decreasing NPH dose if necessary, although don't anticipate this will be necessary for tomorrow. 12/19 * Patient admitted for COVID19 viral pna with probable superimposed bacterial pneumonia * A1c is consistent with impaired glucose tolerance / "pre-diabetes" * He has been receiving IV steroids (DEXA-ARDS regimen) as well as broad spectrum abx. He was x-ferred out of ICU this AM. He is currently tolerating a diet. * Fasting AM BSGs have been elevated on chemistry. Post-prandial BSGs have not been evaluated on this steroid regimen. * Of note, he has been receiving the IV dexamethasone in the afternoon instead of AM. This will be retimed to allow for AM administration * Will initiate NPH + Novolog basal/bolus regimen PLAN FOR INPATIENT GLYCEMIC CONTROL: * Basal insulin * NPH 10 units SQ x 1 this afternoon after dexamethasone admin, then 20mg (~0.3mg/kg) SQ Q AM with IV dexamethasone * Bolus insulin * NovoLog per scale ACHS or Q6hrs while NPO * Goal Range: Low 120 mg/dL - High 150 mg/dL * Correction Factor: 30 mg/dL/unit * Nutritional / Prandial insulin per carb ratio of 1 unit per 8 grams CHO consumed PLAN FOR DISCHARGE: * given A1c of less than 6.5, no anti-diabetic pharmacotherapy warranted at this time
--- NOTE | 2020-12-21 15:50 | Hospitalist Progress Note ---
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 (2) Pneumonia due to COVID-19 virus: Pneumonia due to COVID-19 virus- Dexamethasone 6 mg IV started 12/14/20 Remdesivir per protocol, started 12/14/20 Tocilizumab was given 12/17/20 Patient is on high-dose dexamethasone 20 for 5 days then 10 for 5 days for inflammatory respiratory response patient had his second COVID shot on 11/17/20, started to feel ill a few days later got really short of breath, cough, aches about two weeks ago was treated with antibiotics and cough suppressant tested positive for COVID on 12/15, no one around him has symptoms of COVID, his and daughters have all been vaccinated however, CT chest was not overly impressive for ground glass changes (3) Sepsis: suspected sepsis but unclear source, significantly high procalcitonin speaks bacterial infections however none were confirmed, 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 at this time CT chest with no consolidation, UA was clean, no abdominal pain, no back pain, no neck pain no fever/chills per patient and his daughter confirms this his daughter states he has a h/o bacteremia 2 years ago requiring IV antibiotics no vegetations on TTE, 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, if blood cultures positive could consider TRINI but respiratory status would prohibit this at this time continue Zosyn, Zithromax, Vanco (ordered 48 hours empirically while waiting on blood cultures) vancomycin therapy has stopped blood cultures remain negative if no infectious etiology seen will downgraded to just Zithromax on 12/21/2020 (4) CHF (congestive heart failure): possible acute heart failure with preserved EF -1500mL with Albumin and Lasix on admission but echo shows EF of 65%, no mitral regurgitation, 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, no ASD hold on further Lasix appears euvolemic at this time (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 he is alert and oriented x2, understands the situation (6) GERD (gastroesophageal reflux disease): Continue pantoprazole 40 mg every morning (7) Hypothyroidism (acquired): Continue levothyroxine 100 mcg every morning (8) Dementia: Continue donepezil (9) Parkinson's disease: Continue carbidopa levodopa (10) DVT (deep venous thrombosis): History of DVT/IVC filter placement place on Lovenox for prophylaxis with Covid infection Updated Admission and Anticipated Discharge Date Admission Date: December 15, 2020 Subjective Patient has improved his declining oxygen requirement now on 3 liters, he is very weak, he is demented he has some minor tremulousness from his Parkinson's disease but overall he has no particular focal complaints Review of Systems Review of Systems: Moderate respiratory distress and fatigue no headache, blurry or double vision no speech or swallowing issues no chest pain, pressure or palpitations Significant shortness of breath nonproductive cough no abdominal pain, nausea or vomiting, diarrhea or constipation no dysuria, hematuria or frequency no focal joint pain minor peripheral edema no back pain, CVA tenderness or radicular pain no bruising, bleeding or rashes no focal signs of weakness or numbness improving lethargy is present consistent with Parkinson's disease no complaints of anxiety or depression.. Physical Exam Physical Exam: The patient appeared well nourished and normally developed. Vital signs as documented. In moderate of moderate respiratory distress with high flow oxygen required Head exam is normocephalic atraumatic no scleral icterus Neck is without JVD, thyromegaly, or carotid bruits. Lungs continue with basilar coarse rales Cardiac exam, Rhythm is regular.. No murmurs, rubs or gallops. Abdominal exam reveals normal bowel sounds, soft non tender, no masses Extremities are trace edematous and both pedal pulses are present Neurologic exam is alert and oriented x2, no focal loss of strength able to move arms and legs independently resting tremor Skin is without bruises or rashes Results & Data Results & Data ([facility]) Vital Signs (Past 12 Hours) Vital Signs Temp Pulse Pulse Resp BP Pulse Ox 12/21/20 15:23 97.5 F L 67 17 108/72 94 12/21/20 14:49 71 12/21/20 12:10 67 04/08/21 11:54 97.5 F L 70 19 125/72 95 12/21/20 11:01 95 12/21/20 08:39 97.5 F L 74 20 133/75 87 L 12/21/20 07:10 59 L 18 96 PG Care Time/CCT Total # of Minutes Spent Total Time Spent with Patient: Total time spent is greater than 50% in coordination of care (as documented) at patient's floor/unit and/or counseling patient: Coding Level of Care Code 68423 Subseq Hosp Care Lvl 2 Diagnoses Acute respiratory failure with hypoxia J96.01 Pneumonia due to COVID-19 virus U07.1; J12.82 Sepsis A41.9 CHF (congestive heart failure) I50.9 Heart failure chronicity: acute Heart failure type: unspecified CVA (cerebral vascular accident) I63.9 GERD (gastroesophageal reflux disease) K21.9 Hypothyroidism (acquired) E03.9 Dementia F03.90 Parkinson's disease G20 DVT (deep venous thrombosis) I82.409 (1) CHF (congestive heart failure) Heart failure chronicity: acute Heart failure type: unspecified Qualified Code(s): I50.9 - Heart failure, unspecified
[2020-12-21] MEDS: ASPIRIN 81 MG ECTAB PO SCH (20:23)
[2020-12-22] MEDS: ENOXAPARIN INJ 60 MG/0.6 ML SYR SQ SCH ×3 (00:19→23:14)
[2020-12-22] MEDS: LEVOTHYROXINE SODIUM 100 MCG TABLET PO SCH (05:49)
[2020-12-22] MEDS: BUDESONIDE 0.5 MG/2 ML VIAL (PULMICORT) NEB SCH ×2 (07:22→19:42)
[2020-12-22] MEDS: ALBUT/IPRATROP 3MG/0.5MG NEB 3 ML VIAL NEB SCH ×2 (07:22→19:42)
--- NOTE | 2020-12-22 07:57 | Hospitalist Progress Note ---
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 (2) Pneumonia due to COVID-19 virus: Pneumonia due to COVID-19 virus- Dexamethasone 6 mg IV started 12/14/20 Remdesivir per protocol, started 12/14/20 Tocilizumab was given 12/17/20 Patient is on high-dose dexamethasone 20 for 5 days then 10 for 5 days for inflammatory respiratory response patient had his second COVID shot on 11/17/20, started to feel ill a few days later got really short of breath, cough, aches about two weeks ago was treated with antibiotics and cough suppressant tested positive for COVID on 12/15, no one around him has symptoms of COVID, his and daughters have all been vaccinated however, CT chest was not overly impressive for ground glass changes Adding Mucinex to help with expectoration (3) Sepsis: suspected sepsis but unclear source, significantly high procalcitonin speaks bacterial infections however none were confirmed, 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 this time CT chest with no consolidation, UA was clean, no abdominal pain, no back pain, no neck pain no fever/chills per patient and his daughter confirms this his daughter states he has a h/o bacteremia 2 years ago requiring IV antibiotics no vegetations on TTE, 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, if blood cultures positive could consider TRINI but respiratory status would prohibit this at this time continue Zosyn, Zithromax, Vanco (ordered 48 hours empirically while waiting on blood cultures) vancomycin therapy has stopped blood cultures remain negative if no infectious etiology seen will downgraded to just Zithromax on 12/21/2020 (4) CHF (congestive heart failure): possible acute heart failure with preserved EF -1500mL with Albumin and Lasix on admission but echo shows EF of 65%, no mitral regurgitation, 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, no ASD continue to hold on further Lasix appears euvolemic at this time (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 he is alert and oriented x2, understands the situation (6) GERD (gastroesophageal reflux disease): Continue pantoprazole 40 mg every morning (7) Hypothyroidism (acquired): Continue levothyroxine 100 mcg every morning (8) Dementia: Continue donepezil (9) Parkinson's disease: Continue carbidopa levodopa (10) DVT (deep venous thrombosis): History of DVT/IVC filter placement place on Lovenox for prophylaxis with Covid infection Updated 12/19- PT/OT Admission and Anticipated Discharge Date Admission Date: December 15, 2020 Subjective Patient has improved his declining oxygen requirement now on 3 liters, he continues to be very weak, he is demented, he has no particular focal complaints Review of Systems Review of Systems: Moderate respiratory distress and fatigue no headache, blurry or double vision no speech or swallowing issues no chest pain, pressure or palpitations Significant shortness of breath nonproductive cough no abdominal pain, nausea or vomiting, diarrhea or constipation no dysuria, hematuria or frequency no focal joint pain minor peripheral edema no back pain, CVA tenderness or radicular pain no bruising, bleeding or rashes no focal signs of weakness or numbness improving lethargy is present consistent with Parkinson's disease no complaints of anxiety or depression.. Physical Exam Physical Exam: The patient appeared well nourished and normally developed. Vital signs as documented. In moderate of moderate respiratory distress with high flow oxygen required Head exam is normocephalic atraumatic no scleral icterus Neck is without JVD, thyromegaly, or carotid bruits. Lungs continue with basilar coarse rales Cardiac exam, Rhythm is regular.. No murmurs, rubs or gallops. Abdominal exam reveals normal bowel sounds, soft non tender, no masses Extremities are trace edematous and both pedal pulses are present Neurologic exam is alert and oriented x2, no focal loss of strength able to move arms and legs independently resting tremor Skin is without bruises or rashes Results & Data Results & Data ([facility]) Vital Signs (Past 12 Hours) Vital Signs Temp Pulse Pulse Resp BP BP Pulse Ox 12/22/20 07:22 65 20 96 12/22/20 07:05 97.5 F L 61 20 127/75 92 12/22/20 04:44 97.5 F L 63 20 120/72 95 12/21/20 23:59 69 12/21/20 23:39 97.3 F L 69 18 116/73 95 12/21/20 19:59 98.6 F 63 20 121/72 97 PG Care Time/CCT Total # of Minutes Spent Total Time Spent with Patient: Total time spent is greater than 50% in coordination of care (as documented) at patient's floor/unit and/or counseling patient: Coding Level of Care Code 95035 Subseq Hosp Care Lvl 3 Diagnoses Acute respiratory failure with hypoxia J96.01 Pneumonia due to COVID-19 virus U07.1; J12.82 Sepsis A41.9 CHF (congestive heart failure) I50.9 Heart failure chronicity: acute Heart failure type: unspecified CVA (cerebral vascular accident) I63.9 GERD (gastroesophageal reflux disease) K21.9 Hypothyroidism (acquired) E03.9 Dementia F03.90 Parkinson's disease G20 DVT (deep venous thrombosis) I82.409 (1) CHF (congestive heart failure) Heart failure chronicity: acute Heart failure type: unspecified Qualified Code(s): I50.9 - Heart failure, unspecified
[2020-12-22] MEDS: PANTOprazole 40 MG TAB PO SCH (08:47)
[2020-12-22] MEDS: THIAMINE HCL 100 MG TAB PO SCH (08:47)
[2020-12-22] MEDS: AZITHROMYCIN 250 MG TAB PO SCH (08:47)
[2020-12-22] MEDS: CARBIDOPA/LEVODOPA 25/100MG TAB PO SCH ×3 (08:47→19:27)
[2020-12-22] MEDS: DONEPEZIL HCL 10 MG TAB PO SCH (08:48)
[2020-12-22] MEDS: dexAMETHasone 10 MG in SYRINGE 0 ML IV SCH (08:48)
[2020-12-22] MEDS: INSULIN HUMAN NPH SC SCH (08:50)
[2020-12-22] MEDS: INSULIN ASPART 100 UNITS/ML 3 ML PEN SC SCH ×4 (09:06→20:58)
[2020-12-22] MEDS: ASPIRIN 81 MG ECTAB PO SCH (19:27)
[2020-12-22] MEDS: guaiFENesin 600 MG TABCR PO SCH (20:58)
[2020-12-23] MEDS: LEVOTHYROXINE SODIUM 100 MCG TABLET PO SCH (06:55)
[2020-12-23] MEDS: BUDESONIDE 0.5 MG/2 ML VIAL (PULMICORT) NEB SCH ×2 (08:15→20:07)
[2020-12-23] MEDS: ALBUT/IPRATROP 3MG/0.5MG NEB 3 ML VIAL NEB SCH ×2 (08:15→20:08)
[2020-12-23] MEDS: dexAMETHasone 10 MG in SYRINGE 0 ML IV SCH (09:27)
[2020-12-23] MEDS: CARBIDOPA/LEVODOPA 25/100MG TAB PO SCH ×3 (09:28→20:37)
[2020-12-23] MEDS: THIAMINE HCL 100 MG TAB PO SCH (09:28)
[2020-12-23] MEDS: DONEPEZIL HCL 10 MG TAB PO SCH (09:28)
[2020-12-23] MEDS: PANTOprazole 40 MG TAB PO SCH (09:29)
[2020-12-23] MEDS: AZITHROMYCIN 250 MG TAB PO SCH (09:29)
[2020-12-23] MEDS: INSULIN ASPART 100 UNITS/ML 3 ML PEN SC SCH ×4 (09:30→21:08)
[2020-12-23] MEDS: INSULIN HUMAN NPH SC SCH (09:30)
[2020-12-23] MEDS: guaiFENesin 600 MG TABCR PO SCH ×2 (09:30→20:38)
[2020-12-23] MEDS: ENOXAPARIN INJ 60 MG/0.6 ML SYR SQ SCH ×2 (13:17→23:39)
--- NOTE | 2020-12-23 18:22 | Hospitalist Progress Note ---
Date of Service December 23, 2020 Assessment & Plan (1) Acute respiratory failure with hypoxia: Acute respiratory failure with hypoxemia secondary to Covid pneumonia Continues with improvement remains in Covid unit progressive care telemetry CT chest with mild ground glass changes, does not appear volume overload and Echo with normal EF, no mitral regurgitation no atrial septal defects to suggest shunt physiology markedly improving oxygen requirements patient and family are in agreement with short term intubation/ventilation would not want usp life support (2) Pneumonia due to COVID-19 virus: Pneumonia due to COVID-19 virus- Dexamethasone 6 mg IV started 12/14/20 Remdesivir per protocol, started 12/14/20 Tocilizumab was given 12/17/20 Patient is on high-dose dexamethasone 20 for 5 days then 10 for 5 days for inflammatory respiratory response patient had his second COVID shot on 11/17/20, started to feel ill a few days later got really short of breath, cough, aches about two weeks ago was treated with antibiotics and cough suppressant tested positive for COVID on 12/15, no one around him has symptoms of COVID, his and daughters have all been vaccinated however, CT chest was not overly impressive for ground glass changes Added Mucinex to help with expectoration (3) Sepsis: suspected sepsis but unclear source, significantly high procalcitonin speaks bacterial infections however none were confirmed, 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 however will continue antibiotics at this time CT chest with no consolidation, UA was clean, no abdominal pain, no back pain, no neck pain no fever/chills per patient and his daughter confirms this his daughter states he has a h/o bacteremia 2 years ago requiring IV antibiotics no vegetations on TTE, 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, if blood cultures positive could consider TRINI but respiratory status would prohibit this at this time continue Zosyn, Zithromax, Vanco (ordered 48 hours empirically while waiting on blood cultures) vancomycin therapy has stopped blood cultures remain negative if no infectious etiology seen will downgraded to just Zithromax on 12/21/2020 (4) CHF (congestive heart failure): possible acute heart failure with preserved EF -1500mL with Albumin and Lasix on admission but echo shows EF of 65%, no mitral regurgitation, 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, no ASD continue to hold on further Lasix appears euvolemic at this time (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 he is alert and oriented x2, understands the situation (6) GERD (gastroesophageal reflux disease): Continue pantoprazole 40 mg every morning (7) Hypothyroidism (acquired): Continue levothyroxine 100 mcg every morning (8) Dementia: Continue donepezil (9) Parkinson's disease: Continue carbidopa levodopa (10) DVT (deep venous thrombosis): History of DVT/IVC filter placement place on Lovenox for prophylaxis with Covid infection Updated 12/19- PT/OT Admission and Anticipated Discharge Date Admission Date: December 15, 2020 Subjective Patient remains on 2 L of oxygen he is weak but less confused, at baseline he is demented, he has no particular focal complaints Review of Systems Review of Systems: Moderate respiratory distress and fatigue no headache, blurry or double vision no speech or swallowing issues no chest pain, pressure or palpitations Significant shortness of breath nonproductive cough no abdominal pain, nausea or vomiting, diarrhea or constipation no dysuria, hematuria or frequency no focal joint pain minor peripheral edema no back pain, CVA tenderness or radicular pain no bruising, bleeding or rashes no focal signs of weakness or numbness improving lethargy is present consistent with Parkinson's disease no complaints of anxiety or depression.. Physical Exam Physical Exam: The patient appeared well nourished and normally developed. Vital signs as documented. In moderate of moderate respiratory distress with high flow oxygen required Head exam is normocephalic atraumatic no scleral icterus Neck is without JVD, thyromegaly, or carotid bruits. Lungs continue with basilar coarse rales Cardiac exam, Rhythm is regular.. No murmurs, rubs or gallops. Abdominal exam reveals normal bowel sounds, soft non tender, no masses Extremities are trace edematous and both pedal pulses are present Neurologic exam is alert and oriented x2, no focal loss of strength able to move arms and legs independently resting tremor Skin is without bruises or rashes Results & Data Results & Data ([facility]) Vital Signs (Past 12 Hours) Vital Signs Temp Pulse Pulse Resp BP Pulse Ox 12/23/20 16:00 73 12/23/20 15:18 97.7 F 71 17 121/73 93 12/23/20 11:08 97.9 F 79 18 125/83 92 12/23/20 08:16 63 20 96 12/23/20 08:00 60 12/23/20 07:21 97.7 F 60 17 128/76 98 PG Care Time/CCT Total # of Minutes Spent Total Time Spent with Patient: Total time spent is greater than 50% in coordination of care (as documented) at patient's floor/unit and/or counseling patient: Coding Level of Care Code 75531 Subseq Hosp Care Lvl 3 Diagnoses Acute respiratory failure with hypoxia J96.01 Pneumonia due to COVID-19 virus U07.1; J12.82 Sepsis A41.9 CHF (congestive heart failure) I50.9 Heart failure chronicity: acute Heart failure type: unspecified CVA (cerebral vascular accident) I63.9 GERD (gastroesophageal reflux disease) K21.9 Hypothyroidism (acquired) E03.9 Dementia F03.90 Parkinson's disease G20 DVT (deep venous thrombosis) I82.409 (1) CHF (congestive heart failure) Heart failure chronicity: acute Heart failure type: unspecified Qualified Code(s): I50.9 - Heart failure, unspecified
[2020-12-23] MEDS: ASPIRIN 81 MG ECTAB PO SCH (20:38)
[2020-12-24] MEDS: LEVOTHYROXINE SODIUM 100 MCG TABLET PO SCH (06:05)
[2020-12-24 06:52] LABS: Hematocrit (blood only) 40.8 % (42-52); Hemoglobin 14.2 g/dL (14.0-18.0); Mean Corpuscular Hgb Conc 34.8 g/dL (32-36); Mean Corpuscular Volume 89.1 fL (80-100); Mean Platelet Volume 10.6 fL (7.4-10.4); Platelet Count 396 K/uL (130-400); RDW Coefficient of Variation 14.4 % (11.5-14.5); RDW Standard Deviation 46.7 fL (36.4-46.3); Red Blood Count 4.58 M/uL (4.7-6.1); White Blood Count 15.91 K/uL (4.8-10.8)
[2020-12-24 07:11] LABS: BUN Creatinine Ratio 35.8 (10-20); Calcium 8.8 mg/dl (8.5-10.1); Creatinine Clr Calc Pharmacy 50.5 ml/min; Est GFR (African American) 90.4; Potassium 4.3 mmol/L (3.5-5.1)
[2020-12-24] MEDS: ALBUT/IPRATROP 3MG/0.5MG NEB 3 ML VIAL NEB SCH ×2 (07:14→19:19)
[2020-12-24] MEDS: BUDESONIDE 0.5 MG/2 ML VIAL (PULMICORT) NEB SCH ×2 (07:14→19:19)
[2020-12-24] MEDS: INSULIN ASPART 100 UNITS/ML 3 ML PEN SC SCH ×4 (09:00→20:58)
[2020-12-24] MEDS: dexAMETHasone 10 MG in SYRINGE 0 ML IV SCH (09:03)
[2020-12-24] MEDS: guaiFENesin 600 MG TABCR PO SCH ×2 (09:03→20:57)
[2020-12-24] MEDS: CARBIDOPA/LEVODOPA 25/100MG TAB PO SCH ×3 (09:04→20:58)
[2020-12-24] MEDS: THIAMINE HCL 100 MG TAB PO SCH (09:04)
[2020-12-24] MEDS: DONEPEZIL HCL 10 MG TAB PO SCH (09:04)
[2020-12-24] MEDS: PANTOprazole 40 MG TAB PO SCH (09:04)
[2020-12-24] MEDS: AZITHROMYCIN 250 MG TAB PO SCH (09:05)
[2020-12-24] MEDS: INSULIN HUMAN NPH SC SCH (09:52)
--- NOTE | 2020-12-24 10:10 | Pharmacy Report ---
Pharmacy Glycemic Short Note 2 - Date of Service December 24, 2020 - Glycemic Short BSG Results (Last 24 hours): 12/23/20 12/23/20 12/23/20 11:43 17:14 20:56 Glucose POC Glucose 99 149 H 185 H 12/24/20 12/24/20 06:08 07:30 Glucose 80 POC Glucose 95 OUTPATIENT ANTIDIABETIC REGIMEN: * N/A * A1c = 6.2% ASSESSMENT: 12/24 * Patient received total of 22 units of insulin yesterday, of which 14 units were NPH to cover steroids * Fasting BSG 95 mg/dL - continue same basal insulin * Had loosened CR yesterday as BSGs in AM on lower end of goal range, however trending up throughout the day. Plan to tighten CR slightly this AM PLAN FOR INPATIENT GLYCEMIC CONTROL: * Basal insulin * NPH 14 units daily - to cover DXM * Bolus insulin * NovoLog per scale ACHS or Q6hrs while NPO * Goal Range: Low 120 mg/dL - High 150 mg/dL * Correction Factor: 30 mg/dL/unit * Nutritional / Prandial insulin per carb ratio of 1 unit per 12 grams CHO consumed PLAN FOR DISCHARGE: * given A1c of less than 6.5, no anti-diabetic pharmacotherapy warranted at this time
--- NOTE | 2020-12-24 11:49 | XRay Report ---
XR chest 1V portable CLINICAL HISTORY: leukocytosis COMPARISON STUDY: Chest CT December 15, 2020. Chest radiograph December 19, 2020. FINDINGS: There are median sternotomy wires. Cholecystectomy clips and IVC filter are partially image d. Prominent gas-filled loops of bowel within the upper abdomen are noted. These were shown on prior exam. Interstitial thickening and bilateral opacities have improved. Cardiomegaly is unchanged. There is no pneumothorax. There are suspected trace bilateral pleural effusions. IMPRESSION: Significant interval decrease in interstitial thickening and bilateral opacities since prior exam. ACT 112: Negative or not required by law. Electronically signed by: Kulwinder Norman M.D. 12/24/2020 11:48 AM
[2020-12-24] MEDS: ENOXAPARIN INJ 60 MG/0.6 ML SYR SQ SCH (12:34)
--- NOTE | 2020-12-24 17:15 | Hospitalist Progress Note ---
Date of Service December 24, 2020 Assessment & Plan (1) Acute respiratory failure with hypoxia: Acute respiratory failure with hypoxemia secondary to Covid pneumonia Continues with improvement remains in Covid unit progressive care telemetry CT chest with mild ground glass changes, does not appear volume overload and Echo with normal EF, no mitral regurgitation no atrial septal defects to suggest shunt physiology markedly improving oxygen requirements patient and family are in agreement with short term intubation/ventilation would not want prison life support family is interested insubacute rehab (2) Pneumonia due to COVID-19 virus: Pneumonia due to COVID-19 virus- Dexamethasone 6 mg IV started 12/14/20 Remdesivir per protocol, started 12/14/20 Tocilizumab was given 12/17/20 Patient is on high-dose dexamethasone 20 for 5 days then 10 for 5 days for inflammatory respiratory response patient had his second COVID shot on 11/17/20, started to feel ill a few days later got really short of breath, cough, aches about two weeks ago was treated with antibiotics and cough suppressant tested positive for COVID on 12/15, no one around him has symptoms of COVID, his and daughters have all been vaccinated however, CT chest was not overly impressive for ground glass changes Added Mucinex to help with expectoration (3) Sepsis: suspected sepsis but unclear source, significantly high procalcitonin speaks bacterial infections however none were confirmed, 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 as 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 however will continue antibiotics at this time CT chest with no consolidation, UA was clean, no abdominal pain, no back pain, no neck pain no fever/chills per patient and his daughter confirms this his daughter states he has a h/o bacteremia 2 years ago requiring IV antibiotics no vegetations on TTE, 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, if blood cultures positive could consider TRINI but respiratory status would prohibit this at this time continue Zosyn, Zithromax, Vanco (ordered 48 hours empirically while waiting on blood cultures) vancomycin therapy has stopped blood cultures remain negative if no infectious etiology seen will downgraded to just Zithromax on 12/21/2020 (4) CHF (congestive heart failure): possible acute heart failure with preserved EF -1500mL with Albumin and Lasix on admission but echo shows EF of 65%, no mitral regurgitation, 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, no ASD continue to hold on further Lasix appears euvolemic at this time (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 he is alert and oriented x2, understands the situation (6) GERD (gastroesophageal reflux disease): Continue pantoprazole 40 mg every morning (7) Hypothyroidism (acquired): Continue levothyroxine 100 mcg every morning (8) Dementia: Continue donepezil (9) Parkinson's disease: Continue carbidopa levodopa (10) DVT (deep venous thrombosis): History of DVT/IVC filter placement place on Lovenox for prophylaxis with Covid infection Updated 12/19- PT/OT Admission and Anticipated Discharge Date Admission Date: December 15, 2020 Subjective Patient remains on 2 L of oxygen he is weak but less confused, at baseline he is demented, he has no particular focal complaints, family will really hope for aubacute rehab Review of Systems Review of Systems: Moderate respiratory distress and fatigue no headache, blurry or double vision no speech or swallowing issues no chest pain, pressure or palpitations Significant shortness of breath nonproductive cough no abdominal pain, nausea or vomiting, diarrhea or constipation no dysuria, hematuria or frequency no focal joint pain minor peripheral edema no back pain, CVA tenderness or radicular pain no bruising, bleeding or rashes no focal signs of weakness or numbness improving lethargy is present consistent with Parkinson's disease no complaints of anxiety or depression.. Physical Exam Physical Exam: The patient appeared well nourished and normally developed. Vital signs as documented. In moderate of moderate respiratory distress with high flow oxygen required Head exam is normocephalic atraumatic no scleral icterus Neck is without JVD, thyromegaly, or carotid bruits. Lungs continue with basilar coarse rales Cardiac exam, Rhythm is regular.. No murmurs, rubs or gallops. Abdominal exam reveals normal bowel sounds, soft non tender, no masses Extremities are trace edematous and both pedal pulses are present Neurologic exam is alert and oriented x2, no focal loss of strength able to move arms and legs independently resting tremor Skin is without bruises or rashes Results & Data Results & Data ([facility]) Vital Signs (Past 12 Hours) Vital Signs Temp Pulse Pulse Resp BP Pulse Ox 12/24/20 14:48 97.7 F 82 19 116/74 95 04/11/21 11:05 97.9 F 83 18 128/72 90 12/24/20 08:00 58 L 12/24/20 07:31 97.9 F 60 16 112/69 96 12/24/20 07:14 59 L 18 93 PG Care Time/CCT Total # of Minutes Spent Total Time Spent with Patient: Total time spent is greater than 50% in coordination of care (as documented) at patient's floor/unit and/or counseling patient: Coding Level of Care Code 24263 Subseq Hosp Care Lvl 3 Diagnoses Acute respiratory failure with hypoxia J96.01 Pneumonia due to COVID-19 virus U07.1; J12.82 Sepsis A41.9 CHF (congestive heart failure) I50.9 Heart failure chronicity: acute Heart failure type: unspecified CVA (cerebral vascular accident) I63.9 GERD (gastroesophageal reflux disease) K21.9 Hypothyroidism (acquired) E03.9 Dementia F03.90 Parkinson's disease G20 DVT (deep venous thrombosis) I82.409 (1) CHF (congestive heart failure) Heart failure chronicity: acute Heart failure type: unspecified Qualified Code(s): I50.9 - Heart failure, unspecified
[2020-12-24] MEDS: ASPIRIN 81 MG ECTAB PO SCH (20:58)
[2020-12-25] MEDS: ENOXAPARIN INJ 60 MG/0.6 ML SYR SQ SCH ×2 (00:01→12:48)
[2020-12-25] MEDS: LEVOTHYROXINE SODIUM 100 MCG TABLET PO SCH (05:43)
[2020-12-25] MEDS: BUDESONIDE 0.5 MG/2 ML VIAL (PULMICORT) NEB SCH (07:35)
[2020-12-25] MEDS: ALBUT/IPRATROP 3MG/0.5MG NEB 3 ML VIAL NEB SCH (07:35)
[2020-12-25] MEDS: INSULIN ASPART 100 UNITS/ML 3 ML PEN SC SCH ×4 (08:00→21:10)
[2020-12-25] MEDS ORDERED: ALBUT/IPRATROP 3MG/0.5MG NEB 3 ML VIAL NEB PRN (09:02)
[2020-12-25] MEDS: DONEPEZIL HCL 10 MG TAB PO SCH (09:15)
[2020-12-25] MEDS: dexAMETHasone 10 MG in SYRINGE 0 ML IV SCH (09:15)
[2020-12-25] MEDS: PANTOprazole 40 MG TAB PO SCH (09:16)
[2020-12-25] MEDS: THIAMINE HCL 100 MG TAB PO SCH (09:16)
[2020-12-25] MEDS: guaiFENesin 600 MG TABCR PO SCH ×2 (09:16→20:25)
[2020-12-25] MEDS: CARBIDOPA/LEVODOPA 25/100MG TAB PO SCH ×3 (09:16→20:25)
[2020-12-25] MEDS: INSULIN HUMAN NPH SC SCH (09:17)
[2020-12-25] MEDS: AZITHROMYCIN 250 MG TAB PO SCH (10:04)
--- NOTE | 2020-12-25 11:16 | Hospitalist Progress Note ---
Date of Service December 25, 2020 Assessment & Plan (1) Acute respiratory failure with hypoxia: Acute respiratory failure with hypoxemia secondary to Covid pneumonia Continues with improvement remains in Covid unit progressive care telemetry CT chest with mild ground glass changes, does not appear volume overload and Echo with normal EF, no mitral regurgitation no atrial septal defects to suggest shunt physiology markedly improving oxygen requirements, down to 2L NC, breathing comfortably family is interested in subacute rehab, would be ready by Friday if they need to make referrals (2) Pneumonia due to COVID-19 virus: Pneumonia due to COVID-19 virus- Dexamethasone 6 mg IV started 12/14/20 Remdesivir per protocol, started 12/14/20 Tocilizumab was given 12/17/20 Patient is on high-dose dexamethasone 20 for 5 days then 10 for 5 days for in flammatory respiratory response patient had his second COVID shot on 11/17/20, started to feel ill a few days later got really short of breath, cough, aches about two weeks ago was treated with antibiotics and cough suppressant tested positive for COVID on 12/15, no one around him has symptoms of COVID, his and daughters have all been vaccinated however, CT chest was not overly impressive for ground glass changes Added Mucinex to help with expectoration (3) Sepsis: suspected sepsis but unclear source, significantly high procalcitonin speaks bacterial infections however none were confirmed, 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 however will continue antibiotics at this time CT chest with no consolidation, UA was clean, no abdominal pain, no back pain, no neck pain no fever/chills per patient and his daughter confirms this his daughter states he has a h/o bacteremia 2 years ago requiring IV antibiotics no vegetations on TTE, 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, if blood cultures positive could consider TRINI but respiratory status would prohibit this at this time continue Zosyn, Zithromax, Vanco (ordered 48 hours empirically while waiting on blood cultures) vancomycin therapy has stopped blood cultures remain negative if no infectious etiology seen will downgraded to just Zithromax on 12/21/2020 (4) CHF (congestive heart failure): possible acute heart failure with preserved EF -1500mL with Albumin and Lasix on admission but echo shows EF of 65%, no mitral regurgitation, 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, no ASD continue to hold on further Lasix appears euvolemic at this time (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 he is alert and oriented x2, understands the situation (6) GERD (gastroesophageal reflux disease): Continue pantoprazole 40 mg every morning (7) Hypothyroidism (acquired): Continue levothyroxine 100 mcg every morning (8) Dementia: Continue donepezil (9) Parkinson's disease: Continue carbidopa levodopa (10) DVT (deep venous thrombosis): History of DVT/IVC filter placement place on Lovenox for prophylaxis with Covid infection PT/OT - needs updated notes good candidate for rehab, would be ready mid week Admission and Anticipated Discharge Date Admission Date: December 15, 2020 Subjective patient doing well, sitting in recliner today, cheng in place draining clear yellow urine breathing comfortably on 2L he said he had some eggs and potatoes for breakfast, drank some coffee discussed that he is doing so much better than when I saw him a week ago discussed going to rehab, he deferred to his family reviewed the chart, case management looking into rehab for him, could likely go mid week this week glucose is stable, no other labs Review of Systems Review of Systems: All systems reviewed & are unremarkable except as noted in Subjective Constitutional: + weakness; no fever and no fatigue Respiratory: + dyspnea on exertion; no cough, no dyspnea and no sputum production Cardiovascular: no chest pain and no edema Gastrointestinal: no abdominal pain, no nausea, no vomiting, no constipation and no diarrhea/loose stools Physical Exam Constitutional: well developed and comfortable; no acute distress Neck: trachea midline, no thyromegaly Respiratory: normal respiratory effort, lungs clear to auscultation Auscultation: + diminished lung sounds Cardiovascular: RRR, no murmur, no edema Gastrointestinal (Abdomen): normal bowel sounds, soft, nontender, no hepatosplenomegaly Musculoskeletal: no cyanosis or clubbing, extremities motor strength 5/5 Skin: normal turgor and + dry skin (cool to touch); no rashes Neurologic: patellar DTR's 2+ bilat, sensation intact and PERRL, EOMI, accommodation nl, no face palsy, no dysarthria Motor/Sensory: + tremor (resting tremor, right arm/hand) Psychiatric: A+Ox3, euthymic affect Lymphatic: no cervical or axillary lymphadenopathy Results & Data Results & Data ([facility]) Vital Signs (Past 12 Hours) Vital Signs Temp Pulse Pulse Resp BP BP Pulse Ox 12/25/20 10:42 36.7 C 16 115/69 95 12/25/20 08:00 55 L 12/25/20 07:35 65 18 100 12/25/20 07:21 36.4 C 65 18 129/74 95 12/25/20 03:20 36.4 C L 62 20 130/76 96 Laboratory Results Laboratory Results - last 24 hr 12/24/20 12/24/20 12/24/20 11:53 16:40 20:08 POC Glucose 134 H 140 H 180 H 12/25/20 08:05 POC Glucose 81 Medications Administered Current Inpatient Medications Acetaminophen (Acetaminophen 325 Mg Tab) 650 mg PO Q4H PRN PRN Reason: Pain or Fever Stop: 01/14/21 22:46 Last Admin: 12/20/20 09:39 Dose: 650 mg Documented by: Albuterol (Albut/Ipratrop 3mg/0.5mg Neb 3 Ml Vial) 3 ml NEB Q4 PRN PRN Reason: Shortness Of Breath Or Wheezing Stop: 01/24/21 09:01 Aspirin (Aspirin 81 Mg Ectab) 81 mg PO QPM [facility] Stop: 01/14/21 22:46 Last Admin: 12/24/20 20:58 Dose: 81 mg Documented by: Azithromycin (Azithromycin 250 Mg Tab) 250 mg PO QAM [facility] Stop: 12/29/20 08:59 Last Admin: 12/25/20 10:04 Dose: 250 mg Documented by: Carbidopa/Levodopa (Carbidopa/Levodopa 25/100mg Tab) 1 tab PO TID RADHA Stop: 01/14/21 22:46 Last Admin: 12/25/20 09:16 Dose: 1 tab Documented by: Dextrose (Dextrose 50% 50 Ml Syringe) 25 - 50 ml IV UD PRN; Protocol PRN Reason: Hypoglycemia Protocol Stop: 01/18/21 10:44 Donepezil HCl (Donepezil Hcl 10 Mg Tab) 10 mg PO QAM [facility] Stop: 01/15/21 08:59 Last Admin: 12/25/20 09:15 Dose: 10 mg Documented by: Enoxaparin Sodium (Enoxaparin Inj 60 Mg/0.6 Ml Syr) 60 mg SQ Q12H [facility] Stop: 01/18/21 00:00 Last Admin: 12/25/20 00:01 Dose: 60 mg Documented by: Glucagon (Glucagon For Inj 1 Mg Vial) 1 mg IM UD PRN; Protocol PRN Reason: Hypoglycemia Protocol Stop: 01/18/21 10:44 Glucose (Glucose 40% Gel 15 Gm Tube) 15 - 30 gm PO UD PRN; Protocol PRN Reason: Hypoglycemia Protocol Stop: 01/18/21 10:44 Glucose (Glucose 10 Tabs/Tube) 4 - 8 tabs PO UD PRN; Protocol PRN Reason: Hypoglycemia Protocol Stop: 01/18/21 10:44 Guaifenesin (Guaifenesin 600 Mg Tabcr) 1,200 mg PO Q12 [facility] Stop: 01/21/21 20:59 Last Admin: 12/25/20 09:16 Dose: 1,200 mg Documented by: Dexamethasone 10 mg/ Syringe 2.5 mls @ 1 mls/min IV Q24H [facility] Stop: 12/26/20 09:03 Last Admin: 12/25/20 09:15 Dose: 1 mls/min Documented by: Insulin Aspart (Insulin Aspart 100 Units/Ml 3 Ml Pen) 0 units SC ACHS [facility] Stop: 01/18/21 11:29 Last Admin: 12/25/20 08:00 Dose: Not Given Documented by: Insulin Human NPH (Insulin Human Nph) 14 units SC DAILY@0900 [facility] Stop: 01/21/21 08:59 Last Admin: 12/25/20 09:17 Dose: 14 units Documented by: Levothyroxine Sodium (Levothyroxine Sodium 100 Mcg Tablet) 100 mcg PO DAILYBB [facility] Stop: 01/18/21 06:29 Last Admin: 12/25/20 05:43 Dose: 100 mcg Documented by: Miscellaneous (Carbohydrates For Hypoglycemia ) 15 - 30 gm PO UD PRN PRN Reason: Hypoglycemia Treatment Stop: 01/18/21 10:44 Miscellaneous Information (Pharmacy Glycemic Mgmt Consult) 1 ea N/A UD PRN PRN Reason: Consult Stop: 01/18/21 10:30 Ondansetron HCl (Ondansetron Inj 2 Mg/Ml 2 Ml Vial) 4 mg IV Q6H PRN PRN Reason: Nausea Stop: 01/14/21 22:46 Pantoprazole Sodium (Pantoprazole 40 Mg Tab) 40 mg PO DAILY [facility] Stop: 01/18/21 08:59 Last Admin: 12/25/20 09:16 Dose: 40 mg Documented by: Thiamine HCl (Thiamine Hcl 100 Mg Tab) 100 mg PO QAM [facility] Stop: 01/17/21 11:29 Last Admin: 12/25/20 09:16 Dose: 100 mg Documented by: PG Care Time/CCT Total # of Minutes Spent Total Time Spent with Patient: Total time spent is greater than 50% in coordination of care (as documented) at patient's floor/unit and/or counseling patient: Coding Level of Care Code 68827 Subseq Hosp Care Lvl 2 Diagnoses Acute respiratory failure with hypoxia J96.01 Pneumonia due to COVID-19 virus U07.1; J12.82 Sepsis A41.9 CHF (congestive heart failure) I50.9 Heart failure chronicity: acute Heart failure type: unspecified CVA (cerebral vascular accident) I63.9 GERD (gastroesophageal reflux disease) K21.9 Hypothyroidism (acquired) E03.9 Dementia F03.90 Parkinson's disease G20 DVT (deep venous thrombosis) I82.409 (1) CHF (congestive heart failure) Heart failure chronicity: acute Heart failure type: unspecified Qualified Code(s): I50.9 - Heart failure, unspecified
[2020-12-25] MEDS: ASPIRIN 81 MG ECTAB PO SCH (20:25)
[2020-12-26] MEDS: ENOXAPARIN INJ 60 MG/0.6 ML SYR SQ SCH ×3 (00:11→23:25)
[2020-12-26] MEDS: LEVOTHYROXINE SODIUM 100 MCG TABLET PO SCH (05:37)
[2020-12-26 06:24] LABS: Hematocrit (blood only) 43.1 % (42-52); Hemoglobin 15.2 g/dL (14.0-18.0); Mean Corpuscular Hemoglobin 31.6 pg (25-34); Mean Corpuscular Hgb Conc 35.3 g/dL (32-36); Mean Corpuscular Volume 89.6 fL (80-100); Mean Platelet Volume 10.9 fL (7.4-10.4); Platelet Count 385 K/uL (130-400); RDW Coefficient of Variation 14.6 % (11.5-14.5); RDW Standard Deviation 47.3 fL (36.4-46.3); Red Blood Count 4.81 M/uL (4.7-6.1); White Blood Count 13.92 K/uL (4.8-10.8)
[2020-12-26 06:52] LABS: BUN Creatinine Ratio 35.1 (10-20); Creatinine Clr Calc Pharmacy 51.1 ml/min; Est GFR (African American) 90.9; Est GFR (Non-African American) 78.4; Potassium 4.1 mmol/L (3.5-5.1)
[2020-12-26] MEDS: INSULIN ASPART 100 UNITS/ML 3 ML PEN SC SCH ×4 (08:00→20:47)
--- NOTE | 2020-12-26 08:51 | Hospitalist Progress Note ---
Date of Service December 26, 2020 Assessment & Plan (1) Acute respiratory failure with hypoxia: Acute respiratory failure with hypoxemia secondary to Covid pneumonia Continues with improvement remains in Covid unit progressive care telemetry CT chest with mild ground glass changes, does not appear volume overload and Echo with normal EF, no mitral regurgitation no atrial septal defects to suggest shunt physiology markedly improving oxygen requirements, down to 2L NC, breathing comfortably tried to wean to room air, drops to 80s family is interested in subacute rehab, would be ready by Friday if they need to make referrals downgrade to medical status today (2) Pneumonia due to COVID-19 virus: Pneumonia due to COVID-19 virus- Dexamethasone 6 mg IV started 12/14/20 Remdesivir per protocol, started 12/14/20 Tocilizumab was given 12/17/20 Patient is on high-dose dexamethasone 20 for 5 days then 10 for 5 days for inflammatory respiratory response patient had his second COVID shot on 11/17/20, started to feel ill a few days later got really short of breath, cough, aches about two weeks ago was treated with antibiotics and cough suppressant tested positive for COVID on 12/15, no one around him has symptoms of COVID, his and daughters have all been vaccinated however, CT chest was not overly impressive for ground glass changes Added Mucinex to help with expectoration recovering well, really improved after Tocilizumab (3) Sepsis: suspected sepsis but unclear source, significantly high procalcitonin speaks bacterial infections however none were confirmed, 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 as the primary customer service driver however will continue antibiotics at this time CT chest with no consolidation, UA was clean, no abdominal pain, no back pain, no neck pain no fever/chills per patient and his daughter confirms this his daughter states he has a h/o bacteremia 2 years ago requiring IV antibiotics no vegetations on TTE, 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, if blood cultures positive could consider TRINI but respiratory status would prohibit this at this time downgraded to just Zithromax on 12/21/2020 (4) CHF (congestive heart failure): possible acute heart failure with preserved EF -1500mL with Albumin and Lasix on admission but echo shows EF of 65%, no mitral regurgitation, 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, no ASD continue to hold on further Lasix appears euvolemic at this time (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 he is alert and oriented x2, understands the situation (6) GERD (gastroesophageal reflux disease): Continue pantoprazole 40 mg every morning (7) Hypothyroidism (acquired): Continue levothyroxine 100 mcg every morning (8) Dementia: Continue donepezil (9) Parkinson's disease: Continue carbidopa levodopa (10) DVT (deep venous thrombosis): History of DVT/IVC filter placement place on Lovenox 60mg q12 for prophylaxis with Covid infection PT/OT - needs updated notes good candidate for rehab, would be ready mid week, possibly tomorrow Admission and Anticipated Discharge Date Admission Date: December 15, 2020 Subjective patient doing well, sitting in recliner, no distress at all, slight dry cough, no chest pain eating okay but not great, taking medications RN tried taking him off 2L but he drops to 80s, stable on the 2L no issues on tele, will downgrade to medical status today working on getting him to rehab which he needs, very weak labs today show K is 4.1, Cr 0.8, WBC 13k Review of Systems Review of Systems: All systems reviewed & are unremarkable except as noted in Subjective Constitutional: + fatigue and + weakness; no fever Respiratory: + cough and + dyspnea on exertion; no dyspnea, no pain with cough and no sputum production Cardiovascular: no chest pain and no edema Gastrointestinal: no abdominal pain, no nausea, no vomiting, no constipation and no diarrhea/loose stools Physical Exam Constitutional: well developed and comfortable; no acute distress Neck: trachea midline, no thyromegaly Respiratory: normal respiratory effort, lungs clear to auscultation + cough; no respiratory distress and no labored breathing Auscultation: + diminished lung sounds Cardiovascular: Rate/Rhythm: regular rate and regular rhythm Heart Sounds: normal S1, normal S2 and + murmur Extremities: normal capillary refill; no edema Gastrointestinal (Abdomen): normal bowel sounds, soft, nontender, no hepatosplenomegaly Musculoskeletal: no cyanosis or clubbing, extremities motor strength 5/5 Skin: normal turgor and + dry skin (cool to touch); no rashes Neurologic: patellar DTR's 2+ bilat, sensation intact and PERRL, EOMI, acco mmodation nl, no face palsy, no dysarthria Motor/Sensory: + tremor (resting tremor, right arm/hand) Psychiatric: A+Ox3, euthymic affect Lymphatic: no cervical or axillary lymphadenopathy Results & Data Results & Data ([facility]) Vital Signs (Past 12 Hours) Vital Signs Temp Pulse Pulse Resp BP Pulse Ox 12/26/20 07:52 69 12/26/20 07:13 36.6 C 69 20 114/70 92 12/26/20 03:17 36.7 C 61 18 120/71 90 12/25/20 22:48 36.7 C 68 19 108/53 L 97 12/25/20 22:20 79 Laboratory Results Laboratory Results - last 24 hr 12/25/20 12/25/20 12/25/20 11:43 16:58 20:46 WBC RBC Hgb Hct MCV MCH MCHC RDW Std Deviation RDW Coeff of Colin Plt Count MPV Sodium Potassium Chloride Carbon Dioxide Anion Gap BUN Creatinine Est Cr Clr Drug Dosing Est GFR ( Amer) Est GFR (Non-Af Amer) BUN/Creatinine Ratio Glucose POC Glucose 91 164 H 139 H Calcium 12/26/20 12/26/20 12/26/20 05:23 05:23 07:11 WBC 13.92 H RBC 4.81 Hgb 15.2 Hct 43.1 MCV 89.6 MCH 31.6 MCHC 35.3 RDW Std Deviation 47.3 H RDW Coeff of Colin 14.6 H Plt Count 385 MPV 10.9 H Sodium 141 Potassium 4.1 Chloride 108 H Carbon Dioxide 29 Anion Gap 4.0 BUN 29 H Creatinine 0.82 Est Cr Clr Drug Dosing 51.1 Est GFR ( Amer) 90.9 Est GFR (Non-Af Amer) 78.4 BUN/Creatinine Ratio 35.1 H Glucose 70 POC Glucose 69 L* Calcium 9.0 12/26/20 07:42 WBC RBC Hgb Hct MCV MCH MCHC RDW Std Deviation RDW Coeff of Colin Plt Count MPV Sodium Potassium Chloride Carbon Dioxide Anion Gap BUN Creatinine Est Cr Clr Drug Dosing Est GFR ( Amer) Est GFR (Non-Af Amer) BUN/Creatinine Ratio Glucose POC Glucose 85 Calcium Medications Administered Current Inpatient Medications Acetaminophen (Acetaminophen 325 Mg Tab) 650 mg PO Q4H PRN PRN Reason: Pain or Fever Stop: 01/14/21 22:46 Last Admin: 12/20/20 09:39 Dose: 650 mg Documented by: Albuterol (Albut/Ipratrop 3mg/0.5mg Neb 3 Ml Vial) 3 ml NEB Q4 PRN PRN Reason: Shortness Of Breath Or Wheezing Stop: 01/24/21 09:01 Aspirin (Aspirin 81 Mg Ectab) 81 mg PO QPM [facility] Stop: 01/14/21 22:46 Last Admin: 12/25/20 20:25 Dose: 81 mg Documented by: Azithromycin (Azithromycin 250 Mg Tab) 250 mg PO QAM [facility] Stop: 12/29/20 08:59 Last Admin: 12/25/20 10:04 Dose: 250 mg Documented by: Carbidopa/Levodopa (Carbidopa/Levodopa 25/100mg Tab) 1 tab PO TID [facility] Stop: 01/14/21 22:46 Last Admin: 12/25/20 20:25 Dose: 1 tab Documented by: Dextrose (Dextrose 50% 50 Ml Syringe) 25 - 50 ml IV UD PRN; Protocol PRN Reason: Hypoglycemia Protocol Stop: 01/18/21 10:44 Donepezil HCl (Donepezil Hcl 10 Mg Tab) 10 mg PO QAM [facility] Stop: 01/15/21 08:59 Last Admin: 12/25/20 09:15 Dose: 10 mg Documented by: Enoxaparin Sodium (Enoxaparin Inj 60 Mg/0.6 Ml Syr) 60 mg SQ Q12H [facility] Stop: 01/18/21 00:00 Last Admin: 12/26/20 00:11 Dose: 60 mg Documented by: Glucagon (Glucagon For Inj 1 Mg Vial) 1 mg IM UD PRN; Protocol PRN Reason: Hypoglycemia Protocol Stop: 01/18/21 10:44 Glucose (Glucose 40% Gel 15 Gm Tube) 15 - 30 gm PO UD PRN; Protocol PRN Reason: Hypoglycemia Protocol Stop: 01/18/21 10:44 Glucose (Glucose 10 Tabs/Tube) 4 - 8 tabs PO UD PRN; Protocol PRN Reason: Hypoglycemia Protocol Stop: 01/18/21 10:44 Guaifenesin (Guaifenesin 600 Mg Tabcr) 1,200 mg PO Q12 [facility] Stop: 01/21/21 20:59 Last Admin: 12/25/20 20:25 Dose: 1,200 mg Documented by: Dexamethasone 10 mg/ Syringe 2.5 mls @ 1 mls/min IV Q24H [facility] Stop: 12/26/20 09:03 Last Admin: 12/25/20 09:15 Dose: 1 mls/min Documented by: Insulin Aspart (Insulin Aspart 100 Units/Ml 3 Ml Pen) 0 units SC ACHS [facility] Stop: 01/18/21 11:29 Last Admin: 12/25/20 21:10 Dose: Not Given Documented by: Insulin Human NPH (Insulin Human Nph) 14 units SC DAILY@0900 [facility] Stop: 01/21/21 08:59 Last Admin: 12/25/20 09:17 Dose: 14 units Documented by: Levothyroxine Sodium (Levothyroxine Sodium 100 Mcg Tablet) 100 mcg PO DAILYBB [facility] Stop: 01/18/21 06:29 Last Admin: 12/26/20 05:37 Dose: 100 mcg Documented by: Miscellaneous (Carbohydrates For Hypoglycemia ) 15 - 30 gm PO UD PRN PRN Reason: Hypoglycemia Treatment Stop: 01/18/21 10:44 Last Admin: 12/26/20 07:24 Dose: 15 gm Documented by: Miscellaneous Information (Pharmacy Glycemic Mgmt Consult) 1 ea N/A UD PRN PRN Reason: Consult Stop: 01/18/21 10:30 Ondansetron HCl (Ondansetron Inj 2 Mg/Ml 2 Ml Vial) 4 mg IV Q6H PRN PRN Reason: Nausea Stop: 01/14/21 22:46 Pantoprazole Sodium (Pantoprazole 40 Mg Tab) 40 mg PO DAILY [facility] Stop: 01/18/21 08:59 Last Admin: 12/25/20 09:16 Dose: 40 mg Documented by: Thiamine HCl (Thiamine Hcl 100 Mg Tab) 100 mg PO QAM [facility] Stop: 01/17/21 11:29 Last Admin: 12/25/20 09:16 Dose: 100 mg Documented by: PG Care Time/CCT Total # of Minutes Spent Total Time Spent with Patient: Total time spent is greater than 50% in coordination of care (as documented) at patient's floor/unit and/or counseling patient: Coding Level of Care Code 28189 Subseq Hosp Care Lvl 2 Diagnoses Acute respiratory failure with hypoxia J96.01 Pneumonia due to COVID-19 virus U07.1; J12.82 Sepsis A41.9 CHF (congestive heart failure) I50.9 Heart failure chronicity: acute Heart failure type: unspecified CVA (cerebral vascular accident) I63.9 GERD (gastroesophageal reflux disease) K21.9 Hypothyroidism (acquired) E03.9 Dementia F03.90 Parkinson's disease G20 DVT (deep venous thrombosis) I82.409 (1) CHF (congestive heart failure) Heart failure chronicity: acute Heart failure type: unspecified Qualified Code(s): I50.9 - Heart failure, unspecified
[2020-12-26] MEDS: guaiFENesin 600 MG TABCR PO SCH ×2 (08:58→20:46)
[2020-12-26] MEDS: dexAMETHasone 10 MG in SYRINGE 0 ML IV SCH (08:58)
[2020-12-26] MEDS: AZITHROMYCIN 250 MG TAB PO SCH (08:58)
[2020-12-26] MEDS: DONEPEZIL HCL 10 MG TAB PO SCH (08:59)
[2020-12-26] MEDS: CARBIDOPA/LEVODOPA 25/100MG TAB PO SCH ×3 (08:59→20:47)
[2020-12-26] MEDS: PANTOprazole 40 MG TAB PO SCH (08:59)
[2020-12-26] MEDS: THIAMINE HCL 100 MG TAB PO SCH (09:39)
--- NOTE | 2020-12-26 14:41 | Pharmacy Report ---
Pharmacy Glycemic Short Note 2 - Date of Service December 26, 2020 - Glycemic Short BSG Results (Last 24 hours): 12/25/20 12/25/20 12/26/20 16:58 20:46 05:23 Glucose 70 POC Glucose 164 H 139 H 12/26/20 12/26/20 12/26/20 07:11 07:42 11:26 Glucose POC Glucose 69 L* 85 91 OUTPATIENT ANTIDIABETIC REGIMEN: * N/A * A1c = 6.2% ASSESSMENT: 12/26: * Patient received total of 22 units of insulin yesterday, of which 14 units were NPH to cover steroids * Patient continues trend of lower BSGs for fasting and lunch and increasing throughout the day. Given this, and as last dose of dexamethasone was administered this morning, will withhold NPH today and continue only on novolog scale. 12/24 * Patient received total of 22 units of insulin yesterday, of which 14 units were NPH to cover steroids * Fasting BSG 95 mg/dL - continue same basal insulin * Had loosened CR yesterday as BSGs in AM on lower end of goal range, however trending up throughout the day. Plan to tighten CR slightly this AM PLAN FOR INPATIENT GLYCEMIC CONTROL: * Basal insulin * None * Bolus insulin * NovoLog per scale ACHS or Q6hrs while NPO * Goal Range: Low 120 mg/dL - High 150 mg/dL * Correction Factor: 30 mg/dL/unit * Nutritional / Prandial insulin per carb ratio of 1 unit per 12 grams CHO consumed PLAN FOR DISCHARGE: * given A1c of less than 6.5, no anti-diabetic pharmacotherapy warranted at this time
[2020-12-26] MEDS: ASPIRIN 81 MG ECTAB PO SCH (20:56)
[2020-12-27] MEDS: LEVOTHYROXINE SODIUM 100 MCG TABLET PO SCH (05:32)
[2020-12-27] MEDS: INSULIN ASPART 100 UNITS/ML 3 ML PEN SC SCH (08:48)
[2020-12-27] MEDS: AZITHROMYCIN 250 MG TAB PO SCH (08:50)
[2020-12-27] MEDS: DONEPEZIL HCL 10 MG TAB PO SCH (08:50)
[2020-12-27] MEDS: guaiFENesin 600 MG TABCR PO SCH (08:50)
[2020-12-27] MEDS: THIAMINE HCL 100 MG TAB PO SCH (08:50)
[2020-12-27] MEDS: CARBIDOPA/LEVODOPA 25/100MG TAB PO SCH (08:50)
[2020-12-27] MEDS: PANTOprazole 40 MG TAB PO SCH (08:51)
--- NOTE | 2020-12-27 10:42 | Discharge Summary ---
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 Patient was seen by his PCP recently, and was placed on an antibiotic, which is not improved his symptoms above is noted. In the emergency department this evening, his pulse ox on room air was in the low 60s, and improved on BiPAP to 94. Laboratories in the emergency department this evening confirmed COVID-19 infection. Chest x-ray showed a mixture of congestive heart failure and viral pneumonia. Principal Diagnosis Acute hypoxic respiratory failure due to COVID 19 Discharge Exam Constitutional well developed and comfortable; no acute distress Neck trachea midline, no thyromegaly Respiratory normal respiratory effort, lungs clear to auscultation Cardiovascular RRR, no murmur, no edema Gastrointestinal (Abdomen) normal bowel sounds, soft, nontender, no hepatosplenomegaly Musculoskeletal no cyanosis or clubbing, extremities motor strength 5/5 Skin normal turgor and + dry skin (cool to touch); no rashes Neurologic patellar DTR's 2+ bilat, sensation intact and PERRL, EOMI, accommodation nl, no face palsy, no dysarthria Motor/Sensory: + tremor (resting tremor, right arm/hand) Psychiatric A+Ox3, euthymic affect Lymphatic no cervical or axillary lymphadenopathy Discharge Data Allergies Allergy/AdvReac Type Severity Reaction Status Date / Time No Known Allergies Allergy Verified 12/15/20 19:36 Consultations 12/15/20 19:29 ED Decision to Admit Stat 12/17/20 12:16 Consult Film Coater Routine Ordered Studies 12/15/20 19:14 CT angio chest PE protocol Stat Hospital Course (1) Acute respiratory failure with hypoxia: Acute respiratory failure with hypoxemia secondary to Covid pneumonia CT chest with mild ground glass changes, does not appear volume overload and Echo with normal EF, no mitral regurgitation no atrial septal defects to suggest shunt physiology markedly improving oxygen requirements, down to room air today, breathing comfortably 2 step done, no home oxygen needed, even on exertion family will take him home with / care and home health (2) Pneumonia due to COVID-19 virus: Pneumonia due to COVID-19 virus- Dexamethasone 6 mg IV started 12/14/20 Remdesivir per protocol, started 12/14/20 Tocilizumab was given 12/17/20 Patient is on high-dose dexamethasone 20 for 5 days then 10 for 5 days for inflammatory respiratory response patient had his second COVID shot on 11/17/20, started to feel ill a few days later got really short of breath, cough, aches about two weeks ago was treated with antibiotics and cough suppressant tested positive for COVID on 12/15, no one around him has symptoms of COVID, his and daughters have all been vaccinated however, CT chest had some ground glass changes Added Mucinex to help with expectoration recovering well, really improved after Tocilizumab down to room air today, no home oxygen needs d/c to home with family (3) Sepsis: suspected sepsis but unclear source, significantly high procalcitonin speaks bacterial infections however none were confirmed, 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 as the primary driver education road instructor however will continue antibiotics at this time CT chest with no consolidation, UA was clean, no abdominal pain, no back pain, no neck pain no fever/chills per patient and his daughter confirms this his daughter states he has a h/o bacteremia 2 years ago requiring IV antibiotics no vegetations on TTE, 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, if blood cultures positive could consider TRINI but respiratory status would prohibit this at this time downgraded to just Zithromax on 12/21/2020 (4) GERD (gastroesophageal reflux disease): Continue pantoprazole 40 mg every morning (5) Hypothyroidism (acquired): Continue levothyroxine 100 mcg every morning (6) Dementia: Continue donepezil (7) Parkinson's disease: Continue carbidopa levodopa I certify that this patient is under my care and that I, or a physicians nurseryman assistant working with me, had a face to-face encounter that meets the home health [id number] encounter requirements with this patient. The encounter with the patient was in whole, or in part, for the following medical condition, which is the primary reason for home health care (list medical condition): COVID-19, CHF, Parkinsons I certify that, based on my findings, the following services are medically necessary home health services: Nursing PT OT My clinical findings support the need for the above services because: Caregiver Instruct Med Mgmt, Safety, Disease Process, Signs to Report Home Safety Assessment OT Assess ADL Status and Restore Function w ADLs PT Assessment for Endurance / Balance / Strength Skilled Nsg Assessment Skilled Nsg Assess Pt Illness, Disease and Sx Monitoring Further, I certify that my clinical findings support that this patient is homebound (i.e. absences from home require considerable and taxing effort and are for medical reasons or roman catholic services or infrequently or of short duration when for other reasons) because: Assistance of 1 Person for Ambulation/Activities Supportive Aid - Walker Transportation Assistance/Unable to Leave Home Unassisted Certification for Home Health Services: Based on the above findings, I certify that this patient is confined to the home and needs intermittent group home care, physical therapy and/or speech therapy or continues to need occupational therapy. The patient is under my care, and I have initiated the establishment of the plan of care. This patient will be followed by a physician who will periodically review the plan of care. Total Time Total Time Spent Total Time Spent (In Minutes): 33 Total Time Includes: Examination of the Patient, Discharge Planning, Medication Reconciliation and Other (spoke with family about plans) Discharge Plan Discharge Items Patient Disposition: Home - Home Health Services Reason For Visit: COVID 19 PNEUMONIA Discharge Diagnosis: COVID 19 pneumonia Acute hypoxic respiratory failure Condition on Discharge: Good Goals: stay well nourished and well hydrated improve strength and mobility with home therapy Activity: Resume your previous activity Weightbearing: Full weightbearing Non-emergency contact: Primary Care Provider Call non-emergency contact if: you have any medication questions Follow-up/Referrals: Goldy Shay MD [Primary Care Provider] - 01/02/21 10:30 am (Please follow up with Dr. Shay on Friday01/02/21 at 10:30 am. Please arrive to the office at 10:15 am for your appointment. If you are unable to keep this appointment, please call the office to reschedule at [phone]. ) Diet: Regular Addtl Attending Provider Instructions: Medications: no new medications, please note that several prior medications have been stopped COVID 19 pneumonia great response to dexamethasone and Tocilizumab down to room air today, performed a two step with respiratory therapy that showed no need for oxygen even when walking continue to stay well nourished, well hydrated, get rest no further need to quarantine, you can leave the house, just wear a mask when you do so patient's urinary catheter was pulled yesterday, he has urinated several times, small amounts at 150mL please make sure that he is urinating on a regular basis, if he has difficulty urinating, lower abdominal pain then notify home nursing, can come to the emergency room for evaluation and possible need for repeat catheterization patient should only continue to improve, he is weak so he needs 24 hour care to help with standing, walking, getting dressed and bathing Pending Studies at Discharge: No Stand-Alone Forms: [facility], Smoking Cessation Medications and DC Order Prescriptions: Continued donepezil 10 mg tablet 10 mg PO QAM RF: 0 aspirin [Aspirin Low Dose] 81 mg Tablet,Delayed Release (Dr/Ec) 81 mg PO QPM RF: 0 acetaminophen 500 mg Tablet 500 mg PO Q4H RF: 0 levothyroxine 100 mcg tablet 100 mcg PO QAM RF: 0 benzonatate 100 mg capsule 100 mg PO Q6H RF: 0 pantoprazole 40 mg tablet,delayed release (DR/EC) 40 mg PO QAM RF: 0 carbidopa-levodopa 25-100 mg tablet 1 tab PO TID RF: 0 Discontinued potassium chloride 10 mEq capsule, extended release 10 meq PO QAM RF: 0 amoxicillin 500 mg tablet 500 mg PO BID RF: 0 metoprolol tartrate 25 mg tablet 12.5 mg PO BID RF: 0 Discharge Orders: Discharge Order (Routine); Ordered 12/27/20 Ordered By: David Rico Admission Data Admit Date/Time: 12/15/20 20:16 Attending Provider: David Rico Admit Provider: Jorge Cortez Primary Care Provider: Goldy Shay Other Providers: Edvin Schaefer ; [facility] ; [facility], ; [place] ; [facility] ; [facility] ; Jorge Cortez ; Lazaro Mohan Other Interventions: Discharge Summary Assessment (RN) Last Done: 12/27/20 10:52 Coding Level of Care Code D/C Day Management >30 mins Diagnoses Acute respiratory failure with hypoxia J96.01 Pneumonia due to COVID-19 virus U07.1; J12.82 Sepsis A41.9 GERD (gastroesophageal reflux disease) K21.9 Hypothyroidism (acquired) E03.9 Dementia F03.90 Parkinson's disease G20
--- NOTE | 2021-01-05 10:31 | Coding Query ---
CODING QUERY To promote full compliance with coding requirements relating to patient care, provider participation is requested in all cases of propagation worker uncertainty. Please assist us with the question(s) below: Coding Question(s): Patient admitted with COVID 19, acute respiratory failure with hypoxia and Sepsis. Please document, if known or suspected, the Etiology of the Sepsis. Thanks for your help! Bhavin Knowles [facility] Physician's Response(s): sepsis suspected to be due to COVID 19 Principal Diagnosis: "that condition established after study, to be chiefly responsible for occasioning the admission of the patient to the hospital for care." Co-Existing Principal Diagnosis: "when two or more diagnoses equally meet the criteria for principal diagnosis as determined by the circumstances of admission, diagnostic work up, and/or therapy provided, and the Alphabetic Index, Tabular List, or another coding guideline does not provide sequencing direction, any one of the diagnoses may be sequenced first." "When the physician has documented what appears to be a current diagnosis in the body of the record, but has not included the diagnosis in the final diagnostic statement, the physician should be asked whether the diagnosis should be added." (Source Coding Clinic 2 QTR90. p3-4) MICHEL
== END 2020-12-27 13:01 | disposition home health service (06) | DRG 871 ==
LOC: ED 17:34 → SUATTDRO 20:16 → 2E 20:16 → 1E 12-17 09:44 → 2E 12-19 10:48